=== PATIENT | male | born 1950 | race Caucasian/White ===

== ENCOUNTER 2017-01-14 12:13 | Inpatient (IN) | payer MEDICARE ==
[2017-01-14] VITALS (17 sets, daily range): BP systolic 118–146; BP diastolic 57–108; PULSE 74–173; RESP 16–20; TEMP 97.6–97.8; O2SAT 94–99
[~2017-01-14] VITALS: Ht 177.8 cm; Wt 90.7 kg
[2017-01-14] MEDS ORDERED: FAMO20TA2 PO (12:38)
[2017-01-14] MEDS ORDERED: ATOR20TA15 PO (12:38)
[2017-01-14] MEDS ORDERED: ASPI81CH CHEW (12:38)
[2017-01-14] MEDS ORDERED: METO50TA11 PO (12:38)
[2017-01-14] MEDS ORDERED: DILTIAZEM HCL 25 MG/5 ML VIAL IV ONE (12:45)
[2017-01-14] MEDS ORDERED: SODIUM CHLORIDE 0.9% FLUSH 10 ML FLUSH IVF PRN (12:45)
--- NOTE | 2017-01-14 12:59 | PD ---
HPI Chief Complaint: Cardiac Complaint Time Seen by Provider: 12:30 Travel History International Travel<30 days: No Contact w/Intl Traveler<30days: No Traveled to known affect area: No History of Present Illness HPI Patient is a 66-year-old male presenting to emergency from for evaluation of shortness of breath and fatigue. Patient states he was cutting his grass on January 09 when he suddenly became short of breath and felt very tired. He stopped when into the air conditioning assumed it would resolve however he continued on and off for the next several days. He states that last night he couldn't sleep secondary to feeling short of breath and the sense that he could not take a deep breath. Patient denies any chest pain, nausea, headache, fever, chills. He does report swelling in his legs and feet over the last few days. He reports a past medical history significant for coronary artery disease with stent placement, GERD, hyperlipidemia, hypertension. He is on metoprolol and aspirin, he did not take these medications this morning. PFSH Past Medical History Hx Anticoagulant Therapy: Yes (81mg ASA) High Cholesterol: Yes Coronary Artery Disease: Yes GERD: Yes Hypertension: Yes Past Surgical History Coronary Stent: Yes Social History Alcohol Use: No Tobacco Use: No Substance Use: No Allergies-Medications (Allergen,Severity, Reaction): Coded Allergies: No Known Allergies (Unverified , 01/14/17) Reported Meds & Prescriptions Reported Meds & Active Scripts Active Reported Metoprolol Succinate ER 24 HR (Metoprolol Succinate) 50 Mg Tab 50 Mg PO DAILY Famotidine 20 Mg Tab 20 Mg PO DAILY Atorvastatin (Atorvastatin Calcium) 20 Mg Tab 20 Mg PO HS Aspirin 81 Mg Chew 81 Mg CHEW DAILY Review of Systems Except as stated in HPI: all other systems reviewed are Neg Cardiovascular: Positive: Tachycardia, Dyspnea on exertion, Edema, No: Chest Pain or Discomfort Respiratory: Positive: Shortness of Breath, Orthopnea Gastrointestinal: No: Nausea, Vomiting, Abdominal Pain Musculoskeletal: No: Myalgias Neurologic: No: Weakness, Dizziness, Syncope, Focal Abnormalities Physical Exam Narrative GENERAL: Well-developed, well-nourished, alert male. Resting in no acute distress. SKIN: Warm and dry. HEAD: Atraumatic. Normocephalic. EYES: Pupils equal and round. No scleral icterus. No injection or drainage. ENT: No nasal bleeding or discharge. Mucous membranes pink and moist. NECK: Trachea midline. No JVD. CARDIOVASCULAR: Irregularly irregular, tachycardic RESPIRATORY: No accessory muscle use. Clear to auscultation. Breath sounds equal bilaterally. GASTROINTESTINAL: Abdomen soft, non-tender, nondistended. Hepatic and splenic margins not palpable. MUSCULOSKELETAL: Extremities without clubbing, cyanosis. No obvious deformities. Trace peripheral edema, positive pedal pulses, persistent 3 second capillary refill. NEUROLOGICAL: Awake and alert. No obvious cranial nerve deficits. Motor grossly within normal limits. Five out of 5 muscle strength in the arms and legs. Normal speech. PSYCHIATRIC: Appropriate mood and affect; insight and judgment normal. Data Data Last Documented VS Vital Signs Date Time Temp Pulse Resp B/P Pulse Ox O2 Delivery O2 Flow Rate FiO2 01/14/17 14:54 126 120/84 01/14/17 14:48 16 97 Nasal Cannula 2 01/14/17 12:25 97.6 Orders Diltiazem Inj (Cardizem Inj) (01/14/17 12:45) Electrocardiogram (01/14/17 12:38) B-Type Natriuretic Peptide (01/14/17 12:38) Ckmb (Isoenzyme) Profile (01/14/17 12:38) Complete Blood Count With Diff (01/14/17 12:38) Comprehensive Metabolic Panel (01/14/17 12:38) Magnesium (Mg) (01/14/17 12:38) Prothrombin Time / Inr (Pt) (01/14/17 12:38) Act Partial Throm Time (Ptt) (01/14/17 12:38) Troponin I (01/14/17 12:38) Chest, Single Ap (01/14/17 12:38) Ecg Monitoring (01/14/17 12:38) Bilateral Bp Monitoring (01/14/17 12:38) Iv Access Insert/Monitor (01/14/17 12:38) Oximetry (01/14/17 12:38) Oxygen Administration (01/14/17 12:38) Sodium Chloride 0.9% Flush (Ns Flush) (01/14/17 12:45) Thyroid Stimulating Hormone (01/14/17 12:38) Free Thyroxine (T4) (01/14/17 12:38) Diltiazem Inj (Cardizem Inj) (01/14/17 13:30) Potassium Chloride (Kcl) (01/14/17 14:45) Admit Order (Ed Use Only) (01/14/17 14:52) Labs Laboratory Tests Test 01/14/17 13:20 White Blood Count 7.3 TH/MM3 Red Blood Count 3.14 MIL/MM3 Hemoglobin 12.2 GM/DL Hematocrit 35.4 % Mean Corpuscular Volume 112.9 FL Mean Corpuscular Hemoglobin 38.8 PG Mean Corpuscular Hemoglobin 34.3 % Concent Red Cell Distribution Width 19.0 % Platelet Count 220 TH/MM3 Mean Platelet Volume 9.3 FL Neutrophils (%) (Auto) 68.7 % Lymphocytes (%) (Auto) 19.3 % Monocytes (%) (Auto) 10.4 % Eosinophils (%) (Auto) 0.9 % Basophils (%) (Auto) 0.7 % Neutrophils # (Auto) 5.0 TH/MM3 Lymphocytes # (Auto) 1.4 TH/MM3 Monocytes # (Auto) 0.8 TH/MM3 Eosinophils # (Auto) 0.1 TH/MM3 Basophils # (Auto) 0.0 TH/MM3 CBC Comment DIFF FINAL Differential Comment Prothrombin Time 13.0 SEC Prothromb Time International 1.2 RATIO Ratio Activated Partial 25.0 SEC Thromboplast Time Sodium Level 139 MEQ/L Potassium Level 3.3 MEQ/L Chloride Level 104 MEQ/L Carbon Dioxide Level 23.8 MEQ/L Anion Gap 11 MEQ/L Blood Urea Nitrogen 19 MG/DL Creatinine 1.23 MG/DL Estimat Glomerular Filtration 59 ML/MIN Rate Random Glucose 110 MG/DL Calcium Level 9.2 MG/DL Magnesium Level 1.5 MG/DL Total Bilirubin 1.3 MG/DL Aspartate Amino Transf 36 U/L (AST/SGOT) Alanine Aminotransferase 20 U/L (ALT/SGPT) Alkaline Phosphatase 92 U/L Total Creatine Kinase 78 U/L Troponin I 0.02 NG/ML B-Type Natriuretic Peptide 475 PG/ML Total Protein 7.3 GM/DL Albumin 3.6 GM/DL Free Thyroxine 1.32 NG/DL Thyroid Stimulating Hormone 2.050 uIU/ML [address] [place] [address] Medical Decision Making Medical Screen Exam Complete: Yes Emergency Medical Condition: Yes Interpretation(s) Last Impressions Chest X-Ray 01/14/17 1238 Signed Impressions: Service Date/Time: Cristiana, January 14, 2017 12:40 - CONCLUSION: 1. Cardiomegaly with small bilateral effusions. Sukhi Rose MD Laboratory Tests Test 01/14/17 13:20 White Blood Count 7.3 TH/MM3 Red Blood Count 3.14 MIL/MM3 Hemoglobin 12.2 GM/DL Hematocrit 35.4 % Mean Corpuscular Volume 112.9 FL Mean Corpuscular Hemoglobin 38.8 PG Mean Corpuscular Hemoglobin 34.3 % Concent Red Cell Distribution Width 19.0 % Platelet Count 220 TH/MM3 Mean Platelet Volume 9.3 FL Neutrophils (%) (Auto) 68.7 % Lymphocytes (%) (Auto) 19.3 % Monocytes (%) (Auto) 10.4 % Eosinophils (%) (Auto) 0.9 % Basophils (%) (Auto) 0.7 % Neutrophils # (Auto) 5.0 TH/MM3 Lymphocytes # (Auto) 1.4 TH/MM3 Monocytes # (Auto) 0.8 TH/MM3 Eosinophils # (Auto) 0.1 TH/MM3 Basophils # (Auto) 0.0 TH/MM3 CBC Comment DIFF FINAL Differential Comment Prothrombin Time 13.0 SEC Prothromb Time International 1.2 RATIO Ratio Activated Partial 25.0 SEC Thromboplast Time Sodium Level 139 MEQ/L Potassium Level 3.3 MEQ/L Chloride Level 104 MEQ/L Carbon Dioxide Level 23.8 MEQ/L Anion Gap 11 MEQ/L Blood Urea Nitrogen 19 MG/DL Creatinine 1.23 MG/DL Estimat Glomerular Filtration 59 ML/MIN Rate Random Glucose 110 MG/DL Calcium Level 9.2 MG/DL Magnesium Level 1.5 MG/DL Total Bilirubin 1.3 MG/DL Aspartate Amino Transf 36 U/L (AST/SGOT) Alanine Aminotransferase 20 U/L (ALT/SGPT) Alkaline Phosphatase 92 U/L Total Creatine Kinase 78 U/L Troponin I 0.02 NG/ML B-Type Natriuretic Peptide 475 PG/ML Total Protein 7.3 GM/DL Albumin 3.6 GM/DL Free Thyroxine 1.32 NG/DL Thyroid Stimulating Hormone 2.050 uIU/ML 3rd Gen Vital Signs Date Time Temp Pulse Resp B/P Pulse Ox O2 Delivery O2 Flow Rate FiO2 01/14/17 12:51 118 01/14/17 12:46 168 17 146/57 95 Nasal Cannula 2 120/69 123/100 01/14/17 12:42 96 Nasal Cannula 2 01/14/17 12:25 97.6 173 20 94 Differential Diagnosis Congestive heart failure versus cardiac arrhythmia versus left foot abnormality versus acute coronary syndrome versus other Narrative Course Patient is a 66-year-old male presenting to emergency department with shortness of breath and fatigue over the last several days, worsening last night prompting his visit to the emergency department. On arrival patient was noted to be in A. fib with RVR with heart rate in the 160's, he was given 20 mg IV Cardizem in route by EMS, on arrival initial EKG shows A. fib with RVR with a heart rate of 161. Second IV bolus ordered, labs and imaging ordered and pending. Patient placed on supplemental oxygen, telemetry monitoring, continuous pulse oximetry. Patient's resting in no acute distress. After second dose of Cardizem, patient's heart rate trended down to low 100s, it did not sustain this rate and rebound into the 130s, Cardizem drip ordered. Chest x-ray shows cardiomegaly with small bilateral effusions. BNP 475 CBC is unremarkable Chemistry with potassium at 3.3 Cardiac enzymes negative 1 set TSH and free T4 unremarkable Discussed with Dr. Allen who accepted admission, orders placed. Diagnosis Primary Impression: Atrial fibrillation with RVR Additional Impressions: Hypokalemia Acute congestive heart failure Qualified Code: I50.9 - Acute congestive heart failure, unspecified congestive heart failure type Admitting Information Admitting Physician Requests: Admit Condition: Stable Karen Pedro Jan 14, 2017 12:59
--- NOTE | 2017-01-14 13:06 | RADRPT ---
EXAM DATE/TIME: 01/14/2017 12:40 [facility] COMPARISON: No previous studies available for comparison. INDICATIONS : Short of breath. MEDICAL HISTORY : Myocardial infarction. atrial fibrillation.high cholesterol. SURGICAL HISTORY : Coronary artery stent. ENCOUNTER: Initial ACUITY: 1 day PAIN SCORE: 0/10 LOCATION: Bilateral chest FINDINGS: The heart is enlarged. There are small bilateral effusions right greater than left. The pulmonary par enchyma is clear. The visualized bony structures demonstrate degenerative changes in the right should er but are otherwise intact. CONCLUSION: 1. Cardiomegaly with small bilateral effusions. Sukhi Rose MD on January 14, 2017 at 13:04 Board Certified Radiologist. This report was verified electronically.
[2017-01-14 13:43] LABS: BASOPHIL % 0.7 % (0.0-2.0); EOSINOPHIL # 0.1 TH/MM3 (0-0.4); EOSINOPHIL % 0.9 % (0.0-4.0); HEMATOCRIT 35.4 % (39.0-51.0); HEMO FLAGS DIFF FINAL; LYMPH % 19.3 % (9.0-44.0); LYMPHOCYTE # 1.4 TH/MM3 (1.0-4.8); MEAN CELL VOLUME 112.9 FL (80.0-100.0); MEAN CORPUSCULAR HEMOGLOBIN 38.8 PG (27.0-34.0); MEAN CORPUSCULAR HGB CONC 34.3 % (32.0-36.0); MONO % 10.4 % (0.0-8.0); NEUT % 68.7 % (16.0-70.0); PLATELET COUNT 220 TH/MM3 (150-450); RED BLOOD COUNT 3.14 MIL/MM3 (4.50-5.90); WHITE BLOOD COUNT 7.3 TH/MM3 (4.0-11.0)
[2017-01-14 13:57] LABS: ALT (GPT) 20 U/L (12-78); ANION GAP 11 MEQ/L (5-15); AST (GOT) 36 U/L (15-37); BICARBONATE 23.8 MEQ/L (21.0-32.0); BLOOD UREA NITROGEN 19 MG/DL (7-18); CHLORIDE 104 MEQ/L (98-107); GLOMERULAR FILTRATION RATE 59 ML/MIN (>89); MAGNESIUM 1.5 MG/DL (1.5-2.5); POTASSIUM 3.3 MEQ/L (3.5-5.1); SODIUM (NA) 139 MEQ/L (136-145)
[2017-01-14 13:58] LABS: INTERNATIONAL NORMALIZED RATIO 1.2 RATIO
[2017-01-14 14:06] LABS: ALKALINE PHOSPHATASE 92 U/L (45-117); FREE T4 1.32 NG/DL (0.76-1.46); TOTAL BILIRUBIN ADULT 1.3 MG/DL (0.2-1.0)
[2017-01-14 14:07] LABS: CREATINE KINASE 78 U/L (39-308)
[2017-01-14] MEDS: DILTIAZEM INJ 125 MG in SODIUM CHLORIDE 0.9% INJ 100 ML IV SCH ×2 (14:35→22:45)
[2017-01-14] MEDS ORDERED: POTASSIUM CHLORIDE 20 MEQ CONTROLLED RELEASE TAB PO ONE (14:45)
[2017-01-14] MEDS ORDERED: ACETAMINOPHEN 325 MG TAB PO PRN ×2 (15:00)
[2017-01-14] MEDS ORDERED: NALOXONE HCL 0.4 MG/ML AMP IV PRN (15:00)
[2017-01-14] MEDS ORDERED: SODIUM CHLORIDE 0.9% FLUSH 10 ML FLUSH IV FLUSH PRN (15:00)
[2017-01-14] MEDS ORDERED: ONDANSETRON HCL 4 MG/2 ML VIAL IVP PRN (15:00)
[2017-01-14] MEDS ORDERED: MAGNESIUM HYDROXIDE SUSP 30 ML CUP PO PRN (15:00)
[2017-01-14] MEDS ORDERED: MAGNESIUM SULFATE 1 GM PREMIX 100 ML IV ONE (16:00)
--- NOTE | 2017-01-14 16:05 | HHI.HP ---
HPI Service [facility] Primary Care Physician No Primary Care Physician Admission Diagnosis A. fib with RVR Diagnoses: (1) Atrial fibrillation with RVR (2) Acute CHF (congestive heart failure) (3) Hypokalemia (4) IFG (impaired fasting glucose) (5) Benign hypertension Chief Complaint: Shortness of breath Travel History International Travel<30 Days: No Contact w/Intl Traveler <30 Da: No Traveled to Known Affected Are: No History of Present Illness 66-year-old male with a history of coronary artery disease with cardiac stent 1 , hypertension hyperlipidemia presented to the ED for evaluation of worsening shortness of breath and fatigue 5 days duration without any associated chest pain or heart palpitation. He reports onset of shortness of breath on 01/09/17 while cutting his grass which never improved. He also endorses orthopnea as well as bilateral lower extremity edema. EMS was call and patient was found to be in A. fib with RVR. He denies any known history of atrial fibrillation. Abnormal labs include BNP 475, which patient also denies any prior history of congestive heart failure. He denies any GI bleed, hematuria or hemoptysis. Review of Systems Except as stated in HPI: all other systems reviewed are Neg Past Family Social History Past Medical History Hypertension Hyperlipidemia Coronary artery disease GERD Cardiac stent x 1 18-20 years ago Past Surgical History No previous surgeries Allergies: Coded Allergies: No Known Allergies (Unverified , 01/14/17) Family History Family history positive for kidney disease Social History Patient denies tobacco, alcohol or illicit drug intake Physical Exam Vital Signs Vital Signs Date Time Temp Pulse Resp B/P Pulse Ox O2 Delivery O2 Flow Rate FiO2 01/14/17 15:42 97 01/14/17 15:25 121 16 142/82 99 Nasal Cannula 01/14/17 15:10 136 16 131/108 97 Nasal Cannula 2 01/14/17 14:54 126 120/84 01/14/17 14:48 133 16 118/79 97 Nasal Cannula 2 01/14/17 14:38 157 20 125/84 97 Nasal Cannula 01/14/17 14:04 110 18 120/86 97 Room Air 01/14/17 13:24 88 01/14/17 12:51 118 01/14/17 12:46 168 17 146/57 95 Nasal Cannula 2 120/69 123/100 01/14/17 12:42 96 Nasal Cannula 2 01/14/17 12:25 97.6 173 20 94 Physical Exam GENERAL: This is a well-nourished, well-developed patient, in no apparent distress. SKIN: No rashes, ecchymoses or lesions. Cool and dry. HEAD: Atraumatic. Normocephalic. No temporal or scalp tenderness. EYES: Pupils equal round and reactive. Extraocular motions intact. No scleral icterus. No injection or drainage. ENT: Nose without bleeding, purulent drainage or septal hematoma. Throat without erythema, tonsillar hypertrophy or exudate. Uvula midline. Airway patent. NECK: Trachea midline. No JVD or lymphadenopathy. Supple, nontender, no meningeal signs. CARDIOVASCULAR: Regular rate and rhythm without murmurs, gallops, or rubs. RESPIRATORY: Clear to auscultation. Breath sounds equal bilaterally. No wheezes , rales, or rhonchi. GASTROINTESTINAL: Abdomen soft, non-tender, nondistended. No hepato-splenomegaly , or palpable masses. No guarding. MUSCULOSKELETAL: Extremities without clubbing, cyanosis, +1 BLE edema. No joint tenderness, effusion, or edema noted. No calf tenderness. Negative Homans sign bilaterally. NEUROLOGICAL: Awake and alert. Cranial nerves II through XII intact. Motor and sensory grossly within normal limits. Five out of 5 muscle strength in all muscle groups. Normal speech. Laboratory Laboratory Tests Test 01/14/17 13:20 White Blood Count 7.3 Red Blood Count 3.14 Hemoglobin 12.2 Hematocrit 35.4 Mean Corpuscular Volume 112.9 Mean Corpuscular Hemoglobin 38.8 Mean Corpuscular Hemoglobin 34.3 Concent Red Cell Distribution Width 19.0 Platelet Count 220 Mean Platelet Volume 9.3 Neutrophils (%) (Auto) 68.7 Lymphocytes (%) (Auto) 19.3 Monocytes (%) (Auto) 10.4 Eosinophils (%) (Auto) 0.9 Basophils (%) (Auto) 0.7 Neutrophils # (Auto) 5.0 Lymphocytes # (Auto) 1.4 Monocytes # (Auto) 0.8 Eosinophils # (Auto) 0.1 Basophils # (Auto) 0.0 CBC Comment DIFF FINAL Differential Comment Prothrombin Time 13.0 Prothromb Time International 1.2 Ratio Activated Partial 25.0 Thromboplast Time Sodium Level 139 Potassium Level 3.3 Chloride Level 104 Carbon Dioxide Level 23.8 Anion Gap 11 Blood Urea Nitrogen 19 Creatinine 1.23 Estimat Glomerular Filtration 59 Rate Random Glucose 110 Calcium Level 9.2 Magnesium Level 1.5 Total Bilirubin 1.3 Aspartate Amino Transf 36 (AST/SGOT) Alanine Aminotransferase 20 (ALT/SGPT) Alkaline Phosphatase 92 Total Creatine Kinase 78 Troponin I 0.02 B-Type Natriuretic Peptide 475 Total Protein 7.3 Albumin 3.6 Free Thyroxine 1.32 Thyroid Stimulating Hormone 2.050 3rd Gen Result Diagram: 01/14/17 1320 01/14/17 1320 Imaging Last Impressions Chest X-Ray 01/14/17 1238 Signed Impressions: Service Date/Time: Saturday, January 14, 2017 12:40 - CONCLUSION: 1. Cardiomegaly with small bilateral effusions. Sukhi Rose MD Assessment and Plan Problem List: (1) Atrial fibrillation with RVR ICD Code: I48.91 Status: Acute (2) Acute CHF (congestive heart failure) ICD Code: I50.9 Status: Acute (3) IFG (impaired fasting glucose) ICD Code: R73.01 Status: Acute (4) Benign hypertension ICD Code: I10 Status: Acute (5) Hypokalemia ICD Code: E87.6 Status: Acute Assessment and Plan 66-year-old man with Atrial fibrillation RVR New onset Rule out ACS per protocol with serial cardiac enzyme and EKGs Start Cardizem drip and resume aspirin pending further recommendation from cardiology as patient with [id number] score of 4 as patient will need OAC Check 2-D echo. Free T4 and TSH WNL Cardiology consultation pending Acute congestive heart failure New onset an unknown type Chest x-ray noted and review by me with finding of cardiomegaly with small bilateral effusions Start IV diuresis, daily potassium supplement and check 2-D echo Strict I's and O's and daily weights. CHF education Hypomagnesemia Give magnesium 1 g IV and monitor level Hypokalemia Replace electrolytes and monitor level Hypertension Currently on Cardizem drip Hyperlipidemia Check lipid profile Resume Lipitor 20 mg at bedtime Impaired fasting glucose No known history of diabetes type 2, check hemoglobin A1c and treat accordingly Coronary artery disease Resume aspirin DVT prophylaxis: Lovenox GI prophylaxis: PPI Code Status Full code Discussed Condition With Patient, ED PA Physician Certification 2 Midnight Certification Type: Admission for Inpatient Services Order for Inpatient Services The services are ordered in accordance with Medicare regulations or non- Medicare payer requirements, as applicable. In the case of services not specified as inpatient-only, they are appropriately provided as inpatient services in accordance with the 2-midnight benchmark. Estimated LOS (days): 2 days is the estimated time the patient will need to remain in the hospital, assuming treatment plan goals are met and no additional complications. Post-Hospital Plan: Not yet determined Jeffery Allen MD Jan 14, 2017 16:05
--- NOTE | 2017-01-14 17:24 | PD.CONS ---
HPI Consult Requested By Primary Care Physician No Primary Care Physician History of Present Illness 66-year-old male with a history of CAD s/p PCI, hypertension hyperlipidemia presented to the ED for evaluation of worsening shortness of breath and fatigue 5 days associated with orthopnea and bilateral lower extremity edema. Found to be in A. fib with RVR. He denies any known history of atrial fibrillation. Cardiology consulted for further management and evaluation. Review of Systems Consitutional: DENIES: Fatigue, Fever, Chills, Weight gain, Weight loss Eyes: DENIES: Amaurosis Fugax, Change in vision HEENT: DENIES: Lightheadedness, Change in hearing Respiratory: DENIES: See HPI, Cough, Snoring, Shortness of breath, Wheezing, Sputum production Cardiovascular: COMPLAINS OF: Palpitations Gastrointestinal: DENIES: Nausea, Vomiting, Change in bowel habits, Reflux, Bloody stools, Melena Genitourinary: DENIES: Urinary incontinence, Difficulty voiding Integumentary: DENIES: Rash Neurologic: DENIES: Tingling or numbness, Memory problems, Poor Balance, Stroke symptoms Musculoskeletal: DENIES: Joint pain, Muscle pain, Limited range of motion, Back pain Psychiatric: DENIES: Anxiety, Depression, Sleep disturbances Hematologic: DENIES: Bruising tendencies, Bleeding tendencies Endocrine: DENIES: Weight gain, Weight loss, Thyroid disease Past Family Social History Allergies: Coded Allergies: No Known Allergies (Unverified , 01/14/17) Past Medical History Hypertension Hyperlipidemia Coronary artery disease GERD Cardiac stent x 1 Past Surgical History No previous surgeries Reported Medications Reported Meds & Active Scripts Active Reported Metoprolol Succinate ER 24 HR (Metoprolol Succinate) 50 Mg Tab 50 Mg PO DAILY Famotidine 20 Mg Tab 20 Mg PO DAILY Atorvastatin (Atorvastatin Calcium) 20 Mg Tab 20 Mg PO HS Aspirin 81 Mg Chew 81 Mg CHEW DAILY Active Ordered Medications Current Medications Medications (Trade) Dose Ordered Sig/Amaury Route Start Time Stop Time Status Last Admin Sodium Chloride 2 ml 2 ml UNSCH PRN IVF 01/14/17 12:45 (Cardizem Inj/NS Inj) 125 ml @ 0 mls/hr TITRATE IV 01/14/17 13:30 01/14/17 14:35 (NS Flush) 2 ml UNSCH PRN IV FLUSH 01/14/17 15:00 (NS Flush) 2 ml BID IV FLUSH 01/14/17 21:00 (Tylenol) 650 mg Q4H PRN PO 01/14/17 15:00 (Zofran Inj) 4 mg Q6H PRN IVP 01/14/17 15:00 (Tylenol) 650 mg Q6H PRN PO 01/14/17 15:00 (Narcan Inj) 0.4 mg UNSCH PRN IV 01/14/17 15:00 (Milk Of Magnesia Liq) 30 ml Q12H PRN PO 01/14/17 15:00 (Lasix Inj) 20 mg BID@09,18 IV PUSH 01/14/17 18:00 (KCl) 20 meq DAILY PO 01/15/17 09:00 (Aspirin Chew) 81 mg DAILY CHEW 01/15/17 09:00 (Lipitor) 20 mg HS PO 01/14/17 21:00 Physical Exam Vital Signs Vital Signs Date Time Temp Pulse Resp B/P Pulse Ox O2 Delivery O2 Flow Rate FiO2 01/14/17 16:31 122 01/14/17 15:42 97 01/14/17 15:25 121 16 142/82 99 Nasal Cannula 01/14/17 15:10 136 16 131/108 97 Nasal Cannula 2 01/14/17 14:54 126 120/84 01/14/17 14:48 133 16 118/79 97 Nasal Cannula 2 01/14/17 14:38 157 20 125/84 97 Nasal Cannula 01/14/17 14:04 110 18 120/86 97 Room Air 01/14/17 13:24 88 01/14/17 12:51 118 01/14/17 12:46 168 17 146/57 95 Nasal Cannula 2 120/69 123/100 01/14/17 12:42 96 Nasal Cannula 2 01/14/17 12:25 97.6 173 20 94 Physical Exam GENERAL: Well-nourished, well-developed patient. SKIN: Warm and dry. HEAD: Normocephalic. EYES: No scleral icterus. No injection or drainage. NECK: Supple, trachea midline. No JVD or lymphadenopathy. CARDIOVASCULAR: Irr Irr without murmurs, gallops, or rubs. RESPIRATORY: Breath sounds equal bilaterally. No accessory muscle use. GASTROINTESTINAL: Abdomen soft, non-tender, nondistended. EXTREMITIES: No cyanosis, or edema. NEUROLOGICAL: Awake, alert, and oriented x 3. Non-focal. Laboratory Laboratory Tests Test 01/14/17 13:20 White Blood Count 7.3 Red Blood Count 3.14 Hemoglobin 12.2 Hematocrit 35.4 Mean Corpuscular Volume 112.9 Mean Corpuscular Hemoglobin 38.8 Mean Corpuscular Hemoglobin 34.3 Concent Red Cell Distribution Width 19.0 Platelet Count 220 Mean Platelet Volume 9.3 Neutrophils (%) (Auto) 68.7 Lymphocytes (%) (Auto) 19.3 Monocytes (%) (Auto) 10.4 Eosinophils (%) (Auto) 0.9 Basophils (%) (Auto) 0.7 Neutrophils # (Auto) 5.0 Lymphocytes # (Auto) 1.4 Monocytes # (Auto) 0.8 Eosinophils # (Auto) 0.1 Basophils # (Auto) 0.0 CBC Comment DIFF FINAL Differential Comment Prothrombin Time 13.0 Prothromb Time International 1.2 Ratio Activated Partial 25.0 Thromboplast Time Sodium Level 139 Potassium Level 3.3 Chloride Level 104 Carbon Dioxide Level 23.8 Anion Gap 11 Blood Urea Nitrogen 19 Creatinine 1.23 Estimat Glomerular Filtration 59 Rate Random Glucose 110 Calcium Level 9.2 Magnesium Level 1.5 Total Bilirubin 1.3 Aspartate Amino Transf 36 (AST/SGOT) Alanine Aminotransferase 20 (ALT/SGPT) Alkaline Phosphatase 92 Total Creatine Kinase 78 Troponin I 0.02 B-Type Natriuretic Peptide 475 Total Protein 7.3 Albumin 3.6 Free Thyroxine 1.32 Thyroid Stimulating Hormone 2.050 3rd Gen Result Diagram: 01/14/17 1320 01/14/17 1320 Imaging Last Impressions Chest X-Ray 01/14/17 1238 Signed Impressions: Service Date/Time: Saturday, January 14, 2017 12:40 - CONCLUSION: 1. Cardiomegaly with small bilateral effusions. Sukhi Rose MD Assessment and Plan Problem List: (1) Atrial fibrillation with RVR Assessment and Plan: 66 y/o M with new onset atrial fibrillation. [id number] > 2. No chest pain, palpitations, syncope or hx o bleeding. Recommendations: 1. Wean Cardizem Drip as tolerated by HR and BP 2. Start Lopressor 25mg PO BID 3. Start OAC with Xarelto 4. 2 D Echo 5. MPI +/- LHC (2) Benign hypertension (3) Acute congestive heart failure Problem Qualifiers (1) Acute congestive heart failure: Qualified Code: I50.9 - Acute congestive heart failure, unspecified congestive heart failure type Shay Anand MD Jan 14, 2017 17:24
[2017-01-14] MEDS: FUROSEMIDE 20 MG/2 ML VIAL IV PUSH SCH (18:00)
--- NOTE | 2017-01-14 21:30 | EKG ---
Date Performed: 01/14/2017 Time Performed: 19:07:09 PTAGE: 66 years EKG: ATRIAL FIBRILLATION WITH ABERRANT CONDUCTION OR VENTRICULAR PREMATURE COMPLEXES OLD INFERIO R MYOCARDIAL INFARCTION ABNORMAL ECG PREVIOUS TRACING : 01/14/2017 12.36 Compared to the previous tracing rate better controlled DOCTOR: Aurora Simons Interpretating Date/Time 01/14/2017 21:28:02
[2017-01-14] MEDS: SODIUM CHLORIDE 0.9% FLUSH 10 ML FLUSH IV FLUSH SCH (22:41)
[2017-01-14] MEDS: METOPROLOL TARTRATE 25 MG TAB PO SCH (22:42)
[2017-01-14] MEDS: ATORVASTATIN 20 MG TAB PO SCH (22:42)
[2017-01-15] VITALS (9 sets, daily range): BP systolic 90–123; BP diastolic 57–91; PULSE 76–110; RESP 18–20; TEMP 97.3–98; O2SAT 96–98
[2017-01-15] MEDS ORDERED: PNEUMOCOCCAL POLYVALENT INJ 25 MCG/0.5 ML SYR IM ONE (09:00)
[2017-01-15] MEDS: SODIUM CHLORIDE 0.9% FLUSH 10 ML FLUSH IV FLUSH SCH ×2 (09:00→22:08)
[2017-01-15 09:35] LABS: AUTOMATED NEUTROPHIL # 4.3 TH/MM3 (1.8-7.7); BASOPHIL % 0.5 % (0.0-2.0); EOSINOPHIL # 0.2 TH/MM3 (0-0.4); EOSINOPHIL % 2.4 % (0.0-4.0); HEMATOCRIT 32.6 % (39.0-51.0); HEMO FLAGS DIFF FINAL; LYMPH % 18.9 % (9.0-44.0); LYMPHOCYTE # 1.3 TH/MM3 (1.0-4.8); MEAN CELL VOLUME 113.3 FL (80.0-100.0); MEAN CORPUSCULAR HGB CONC 34.4 % (32.0-36.0); NEUT % 64.2 % (16.0-70.0); PLATELET COUNT 177 TH/MM3 (150-450); RED BLOOD COUNT 2.88 MIL/MM3 (4.50-5.90); RED CELL DISTRIBUTION WIDTH 18.9 % (11.6-17.2); WHITE BLOOD COUNT 6.7 TH/MM3 (4.0-11.0)
[2017-01-15 09:54] LABS: ANION GAP 11 MEQ/L (5-15); AST (GOT) 28 U/L (15-37); BICARBONATE 25.8 MEQ/L (21.0-32.0); BLOOD UREA NITROGEN 17 MG/DL (7-18); CHLORIDE 103 MEQ/L (98-107); GLOMERULAR FILTRATION RATE 81 ML/MIN (>89); MAGNESIUM 1.4 MG/DL (1.5-2.5); POTASSIUM 3.3 MEQ/L (3.5-5.1); SODIUM (NA) 140 MEQ/L (136-145)
[2017-01-15 10:00] LABS: ALKALINE PHOSPHATASE 86 U/L (45-117); ALT (GPT) 18 U/L (12-78); HDL CHOLESTEROL 25.8 MG/DL (40.0-60.0); LDL CHOLESTEROL 52 MG/DL (0-99); TOTAL BILIRUBIN ADULT 1.2 MG/DL (0.2-1.0)
[2017-01-15] MEDS: ASPIRIN 81 MG CHEW TAB CHEW SCH (10:19)
[2017-01-15] MEDS: METOPROLOL TARTRATE 25 MG TAB PO SCH ×2 (10:24→22:07)
[2017-01-15] MEDS: RIVAROXABAN 20 MG TAB PO SCH (10:24)
[2017-01-15] MEDS: FUROSEMIDE 20 MG/2 ML VIAL IV PUSH SCH ×2 (10:24→16:41)
[2017-01-15] MEDS: POTASSIUM CHLORIDE 20 MEQ CONTROLLED RELEASE TAB PO SCH (10:24)
--- NOTE | 2017-01-15 12:23 | HHI.PR ---
Subjective Remarks Follow-up A. fib with RVR/acute CHF 01/15/17-patient seen and examined; still in A. fib with RVR however reports significant improvement of shortness of breath. No acute event overnight. BP soft Objective Vitals Vital Signs Date Time Temp Pulse Resp B/P Pulse Ox O2 Delivery O2 Flow Rate FiO2 01/15/17 09:07 97.9 88 18 119/77 98 01/15/17 04:12 97.8 79 18 90/57 97 01/15/17 04:00 76 01/15/17 03:00 Nasal Cannula 2.00 01/15/17 00:00 97.6 91 18 116/78 98 01/14/17 23:49 74 01/14/17 22:20 Nasal Cannula 2.00 01/14/17 21:09 97.8 85 16 130/93 98 01/14/17 20:38 98 Nasal Cannula 2.00 01/14/17 18:54 89 01/14/17 17:26 103 16 126/79 98 Nasal Cannula 2 01/14/17 16:31 122 01/14/17 15:42 97 01/14/17 15:25 121 16 142/82 99 Nasal Cannula 01/14/17 15:10 136 16 131/108 97 Nasal Cannula 2 01/14/17 14:54 126 120/84 01/14/17 14:48 133 16 118/79 97 Nasal Cannula 2 01/14/17 14:38 157 20 125/84 97 Nasal Cannula 01/14/17 14:04 110 18 120/86 97 Room Air 01/14/17 13:24 88 01/14/17 12:51 118 01/14/17 12:46 168 17 146/57 95 Nasal Cannula 2 120/69 123/100 01/14/17 12:42 96 Nasal Cannula 2 01/14/17 12:25 97.6 173 20 94 I/O 01/14/17 01/14/17 01/14/17 01/15/17 01/15/17 01/15/17 07:00 15:00 23:00 07:00 15:00 23:00 Intake Total 642 ml 745 ml Output Total 900 ml 1500 ml Balance -258 ml -755 ml Intake Oral 500 ml 650 ml IV Total 142 ml 95 ml Output Urine Total 900 ml 1500 ml # Bowel Movements 0 0 Result Diagram: 01/15/17 0750 01/15/17 0750 Imaging Last Impressions Chest X-Ray 01/14/17 1238 Signed Impressions: Service Date/Time: Saturday, January 14, 2017 12:40 - CONCLUSION: 1. Cardiomegaly with small bilateral effusions. Sukhi Rose MD Objective Remarks GENERAL: NAD SKIN: Warm and dry. HEAD: Normocephalic. EYES: No scleral icterus. No injection or drainage. NECK: Supple, trachea midline. No JVD or lymphadenopathy. CARDIOVASCULAR: irreg Regular rate and rhythm without murmurs, gallops, or rubs. RESPIRATORY: Breath sounds equal bilaterally. No accessory muscle use. GASTROINTESTINAL: Abdomen soft, non-tender, nondistended. MUSCULOSKELETAL: No cyanosis, or edema. BACK: Nontender without obvious deformity. No CVA tenderness. A/P Problem List: (1) Atrial fibrillation with RVR ICD Code: I48.91 Status: Acute (2) Acute CHF (congestive heart failure) ICD Code: I50.9 Status: Acute (3) Hypokalemia ICD Code: E87.6 Status: Acute (4) IFG (impaired fasting glucose) ICD Code: R73.01 Status: Acute (5) Benign hypertension ICD Code: I10 Status: Acute Assessment and Plan 66-year-old man with Atrial fibrillation RVR ACS ruled out per protocol with serial cardiac enzyme and EKGs Continue Cardizem drip as patient still in A. fib with RVR will eventually switch him to by mouth Lopressor accordingly Currently on Xarelto and appreciate input from cardiology. Consider stress test 2-D echo pending. Acute congestive heart failure New onset an unknown type Chest x-ray with finding of cardiomegaly with small bilateral effusions Continue IV diuresis, daily potassium supplement and 2-D echo pending Strict I's and O's and daily weights. CHF education Hypomagnesemia Give magnesium 1 g IV and monitor level Hypokalemia Give potassium 60 mEq 1 now Hypertension Currently on Cardizem drip Hyperlipidemia LDL 52 Continue Lipitor 20 mg at bedtime Impaired fasting glucose No known history of diabetes type 2, hemoglobin A1c pending and treat accordingly Coronary artery disease Continue aspirin DVT prophylaxis: Xarelto GI prophylaxis: PPI Jeffery Allen MD Jan 15, 2017 12:23
[2017-01-15] MEDS ORDERED: POTASSIUM CHLORIDE 20 MEQ CONTROLLED RELEASE TAB PO ONE (14:00)
--- NOTE | 2017-01-15 14:27 | PD.CARD.PN ---
Subjective Subjective Remarks still in afib rvr obn cardizem drip no cv complaints Objective Medications Current Medications Medications (Trade) Dose Ordered Sig/Amaury Route Start Time Stop Time Status Last Admin (NS Flush) 2 ml UNSCH PRN IVF 01/14/17 12:45 (NS Flush) 2 ml UNSCH PRN IV FLUSH 01/14/17 15:00 (NS Flush) 2 ml BID IV FLUSH 01/14/17 21:00 01/14/17 22:41 (Tylenol) 650 mg Q4H PRN PO 01/14/17 15:00 (Zofran Inj) 4 mg Q6H PRN IVP 01/14/17 15:00 (Tylenol) 650 mg Q6H PRN PO 01/14/17 15:00 (Narcan Inj) 0.4 mg UNSCH PRN IV 01/14/17 15:00 (Milk Of Magndeepak Liq) 30 ml Q12H PRN PO 01/14/17 15:00 (Lasix Inj) 20 mg BID@09,18 IV PUSH 01/14/17 18:00 01/15/17 10:24 (KCl) 20 meq DAILY PO 01/15/17 09:00 01/15/17 10:24 (Aspirin Chew) 81 mg DAILY CHEW 01/15/17 09:00 01/15/17 10:19 (Lipitor) 20 mg HS PO 01/14/17 21:00 01/14/17 22:42 (Lopressor) 25 mg Q12HR PO 01/14/17 22:45 01/15/17 10:24 Rivaroxaban 20 mg 20 mg DAILY PO 01/15/17 09:00 01/15/17 10:24 (Cardizem Inj/NS Inj) 125 ml @ 0 mls/hr TITRATE IV 01/15/17 15:00 Vital Signs / I&O Vital Signs Date Time Temp Pulse Resp B/P Pulse Ox O2 Delivery O2 Flow Rate FiO2 01/15/17 09:07 97.9 88 18 119/77 98 01/15/17 04:12 97.8 79 18 90/57 97 01/15/17 04:00 76 01/15/17 03:00 Nasal Cannula 2.00 01/15/17 00:00 97.6 91 18 116/78 98 01/14/17 23:49 74 01/14/17 22:20 Nasal Cannula 2.00 01/14/17 21:09 97.8 85 16 130/93 98 01/14/17 20:38 98 Nasal Cannula 2.00 01/14/17 18:54 89 01/14/17 17:26 103 16 126/79 98 Nasal Cannula 2 01/14/17 16:31 122 01/14/17 15:42 97 01/14/17 15:25 121 16 142/82 99 Nasal Cannula 01/14/17 15:10 136 16 131/108 97 Nasal Cannula 2 01/14/17 14:54 126 120/84 01/14/17 14:48 133 16 118/79 97 Nasal Cannula 2 01/14/17 14:38 157 20 125/84 97 Nasal Cannula I/O 01/14/17 01/14/17 01/14/17 01/15/17 01/15/17 01/15/17 07:00 15:00 23:00 07:00 15:00 23:00 Intake Total 642 ml 745 ml Output Total 900 ml 1500 ml Balance -258 ml -755 ml Intake Oral 500 ml 650 ml IV Total 142 ml 95 ml Output Urine Total 900 ml 1500 ml # Bowel Movements 0 0 Physical Exam GENERAL: Well-nourished, well-developed patient. SKIN: Warm and dry. HEAD: Normocephalic. EYES: No scleral icterus. No injection or drainage. NECK: Supple, trachea midline. No JVD or lymphadenopathy. CARDIOVASCULAR: Regular rate and rhythm without murmurs, gallops, or rubs. RESPIRATORY: Breath sounds equal bilaterally. No accessory muscle use. GASTROINTESTINAL: Abdomen soft, non-tender, nondistended. EXTREMITIES: No cyanosis, or edema. NEUROLOGICAL: Awake, alert, and oriented x 3. Non-focal. Laboratory Laboratory Tests Test 01/14/17 01/15/17 01/15/17 19:20 00:39 07:50 Total Creatine Kinase 65 U/L 68 U/L Troponin I 0.02 NG/ML 0.02 NG/ML White Blood Count 6.7 TH/MM3 Red Blood Count 2.88 MIL/MM3 Hemoglobin 11.2 GM/DL Hematocrit 32.6 % Mean Corpuscular Volume 113.3 FL Mean Corpuscular Hemoglobin 39.0 PG Mean Corpuscular Hemoglobin 34.4 % Concent Red Cell Distribution Width 18.9 % Platelet Count 177 TH/MM3 Mean Platelet Volume 9.1 FL Neutrophils (%) (Auto) 64.2 % Lymphocytes (%) (Auto) 18.9 % Monocytes (%) (Auto) 14.0 % Eosinophils (%) (Auto) 2.4 % Basophils (%) (Auto) 0.5 % Neutrophils # (Auto) 4.3 TH/MM3 Lymphocytes # (Auto) 1.3 TH/MM3 Monocytes # (Auto) 0.9 TH/MM3 Eosinophils # (Auto) 0.2 TH/MM3 Basophils # (Auto) 0.0 TH/MM3 CBC Comment DIFF FINAL Differential Comment Sodium Level 140 MEQ/L Potassium Level 3.3 MEQ/L Chloride Level 103 MEQ/L Carbon Dioxide Level 25.8 MEQ/L Anion Gap 11 MEQ/L Blood Urea Nitrogen 17 MG/DL Creatinine 0.93 MG/DL Estimat Glomerular Filtration 81 ML/MIN Rate Random Glucose 84 MG/DL Calcium Level 8.9 MG/DL Magnesium Level 1.4 MG/DL Total Bilirubin 1.2 MG/DL Aspartate Amino Transf 28 U/L (AST/SGOT) Alanine Aminotransferase 18 U/L (ALT/SGPT) Alkaline Phosphatase 86 U/L Total Protein 6.5 GM/DL Albumin 3.2 GM/DL Triglycerides Level 66 MG/DL Cholesterol Level 91 MG/DL LDL Cholesterol 52 MG/DL HDL Cholesterol 25.8 MG/DL Cholesterol/HDL Ratio 3.52 RATIO Imaging Last Impressions Chest X-Ray 01/14/17 1238 Signed Impressions: Service Date/Time: Saturday, January 14, 2017 12:40 - CONCLUSION: 1. Cardiomegaly with small bilateral effusions. Sukhi Rose MD Assessment and Plan Problem List: (1) Atrial fibrillation with RVR Assessment and Plan: 66-year-old man with Atrial fibrillation RVR Continue rate control with Cardizem drip and wean down as tolerated. Cont OAC 2Decho Continue IV diuresis, daily potassium supplement Strict I's and O's and daily weights. (2) Benign hypertension (3) Acute congestive heart failure Problem Qualifiers (1) Acute congestive heart failure: Qualified Code: I50.9 - Acute congestive heart failure, unspecified congestive heart failure type Moreno-Shay Goetz MD Jan 15, 2017 14:27
[2017-01-15] MEDS ORDERED: DILTIAZEM INJ 125 MG in SODIUM CHLORIDE 0.9% INJ 100 ML IV SCH (15:00)
--- NOTE | 2017-01-15 17:07 | EKG ---
Date Performed: 01/14/2017 Time Performed: 12:36:00 PTAGE: 66 years EKG: ATRIAL FIBRILLATION WITH RAPID VENTRICULAR RESPONSE WITH ABERRANT CONDUCTION OR VENTRICULAR PREMATURE COMPLEXES INFERIOR MYOCARDIAL INFARCTION ABNORMAL ECG NO PREVIOUS TRACING DOCTOR: Aurora Simons Interpretating Date/Time 01/15/2017 17:07:21
[2017-01-15 17:58] LABS: HEMOGLOBIN A1a 1.2 %; HEMOGLOBIN A1b 0.8 %; HEMOGLOBIN LA1C 1.7 %; HEMOGLOBIN P3 3.5 %
[2017-01-15] MEDS: ATORVASTATIN 20 MG TAB PO SCH (22:08)
[2017-01-16] VITALS (7 sets, daily range): BP systolic 95–127; BP diastolic 65–93; PULSE 77–110; RESP 18–20; TEMP 97.9–98.6; O2SAT 95–97
[2017-01-16] MEDS: FUROSEMIDE 20 MG/2 ML VIAL IV PUSH SCH (08:24)
[2017-01-16] MEDS: POTASSIUM CHLORIDE 20 MEQ CONTROLLED RELEASE TAB PO SCH (08:25)
[2017-01-16] MEDS: SODIUM CHLORIDE 0.9% FLUSH 10 ML FLUSH IV FLUSH SCH ×2 (08:25→23:04)
[2017-01-16] MEDS: ASPIRIN 81 MG CHEW TAB CHEW SCH (08:25)
[2017-01-16] MEDS: RIVAROXABAN 20 MG TAB PO SCH (08:26)
[2017-01-16] MEDS: METOPROLOL TARTRATE 25 MG TAB PO SCH ×2 (08:26→23:04)
--- NOTE | 2017-01-16 09:26 | HHI.PR ---
Subjective Remarks Follow-up A. fib with RVR/acute CHF 01/15/17-patient seen and examined; still in A. fib with RVR however reports significant improvement of shortness of breath. No acute event overnight. BP soft 01/16/17-patient seen and examined, currently rate control and soft BP. Patient nothing by mouth pending stress test. Denies any shortness of breath or chest pain. Objective Vitals Vital Signs Date Time Temp Pulse Resp B/P Pulse Ox O2 Delivery O2 Flow Rate FiO2 01/16/17 08:00 98.3 79 18 104/68 95 01/16/17 04:00 97.9 77 18 95/65 96 01/16/17 00:40 97.9 86 18 95/67 96 01/15/17 23:00 80 01/15/17 20:00 97.3 110 18 123/91 97 01/15/17 20:00 97 01/15/17 19:00 Nasal Cannula 2.00 01/15/17 17:38 85 01/15/17 16:00 98.0 78 20 117/76 98 01/15/17 16:00 98 Nasal Cannula 2.00 01/15/17 14:42 97.9 85 20 119/72 96 I/O 01/15/17 01/15/17 01/15/17 01/16/17 01/16/17 01/16/17 07:00 15:00 23:00 07:00 15:00 23:00 Intake Total 745 ml 600 ml 580 ml 800 ml Output Total 1500 ml 725 ml 0 ml 650 ml Balance -755 ml -125 ml 580 ml 150 ml Intake Oral 650 ml 600 ml 480 ml 800 ml IV Total 95 ml 100 ml Output Urine Total 1500 ml 725 ml 0 ml 650 ml # Bowel Movements 0 1 0 0 Result Diagram: 01/15/17 0750 01/15/17 0750 Imaging Last Impressions Chest X-Ray 01/14/17 1238 Signed Impressions: Service Date/Time: Saturday, January 14, 2017 12:40 - CONCLUSION: 1. Cardiomegaly with small bilateral effusions. Sukhi Rose MD Objective Remarks GENERAL: NAD SKIN: Warm and dry. HEAD: Normocephalic. EYES: No scleral icterus. No injection or drainage. NECK: Supple, trachea midline. No JVD or lymphadenopathy. CARDIOVASCULAR: irreg Regular rate and rhythm without murmurs, gallops, or rubs. RESPIRATORY: Breath sounds equal bilaterally. No accessory muscle use. GASTROINTESTINAL: Abdomen soft, non-tender, nondistended. MUSCULOSKELETAL: No cyanosis, or edema. BACK: Nontender without obvious deformity. No CVA tenderness. A/P Problem List: (1) Atrial fibrillation with RVR ICD Code: I48.91 Status: Acute (2) Acute CHF (congestive heart failure) ICD Code: I50.9 Status: Acute (3) Hypokalemia ICD Code: E87.6 Status: Acute (4) IFG (impaired fasting glucose) ICD Code: R73.01 Status: Acute (5) Benign hypertension ICD Code: I10 Status: Acute Assessment and Plan 66-year-old man with Atrial fibrillation RVR ACS ruled out per protocol with serial cardiac enzyme and EKGs Discontinue Cardizem drip and start by mouth Lopressor accordingly Currently on Xarelto and appreciate input from cardiology. Stress test pending this a.m. 2-D echo pending. Acute congestive heart failure New onset an unknown type Chest x-ray with finding of cardiomegaly with small bilateral effusions Continue IV diuresis, daily potassium supplement and 2-D echo pending Strict I's and O's and daily weights. CHF education Hypomagnesemia Give magnesium 1 g IV and monitor level Hypokalemia Give potassium 60 mEq 1 now Hypertension BP currently soft Will start Lopressor with holding parameters Hyperlipidemia LDL 52 Continue Lipitor 20 mg at bedtime Impaired fasting glucose No known history of diabetes type 2, hemoglobin A1c 5.5 Coronary artery disease Continue aspirin DVT prophylaxis: Xarelto GI prophylaxis: PPI Discharge Planning Discharge home when medically stable and cleared by cardiology pending Lexiscan stress test Jeffery Allen MD Jan 16, 2017 09:26
[2017-01-16] MEDS ORDERED: MAGNESIUM SULFATE 1 GM PREMIX 100 ML IV ONE (09:30)
[2017-01-16 10:05] LABS: AUTOMATED NEUTROPHIL # 4.4 TH/MM3 (1.8-7.7); BASOPHIL % 0.5 % (0.0-2.0); EOSINOPHIL # 0.1 TH/MM3 (0-0.4); HEMATOCRIT 34.5 % (39.0-51.0); HEMO FLAGS DIFF FINAL; LYMPH % 24.1 % (9.0-44.0); LYMPHOCYTE # 1.7 TH/MM3 (1.0-4.8); MEAN CORPUSCULAR HEMOGLOBIN 37.9 PG (27.0-34.0); MEAN CORPUSCULAR HGB CONC 33.2 % (32.0-36.0); MONO % 11.5 % (0.0-8.0); NEUT % 61.9 % (16.0-70.0); PLATELET COUNT 178 TH/MM3 (150-450); RED BLOOD COUNT 3.03 MIL/MM3 (4.50-5.90); RED CELL DISTRIBUTION WIDTH 18.8 % (11.6-17.2); WHITE BLOOD COUNT 7.1 TH/MM3 (4.0-11.0)
[2017-01-16 10:31] LABS: BICARBONATE 28.1 MEQ/L (21.0-32.0); POTASSIUM 3.7 MEQ/L (3.5-5.1)
[2017-01-16] MEDS ORDERED: REGADENOSON INJ 0.4 MG/5 ML SYR ONE (11:10)
[2017-01-16] MEDS ORDERED: DILTIAZEM INJ 125 MG in SODIUM CHLORIDE 0.9% INJ 100 ML IV SCH (13:15)
--- NOTE | 2017-01-16 15:09 | PD.CARD.PN ---
Subjective Subjective Remarks no cv complaints back in afib with RVR Objective Medications Current Medications Medications (Trade) Dose Ordered Sig/Amaury Route Start Time Stop Time Status Last Admin (NS Flush) 2 ml UNSCH PRN IVF 01/14/17 12:45 (NS Flush) 2 ml UNSCH PRN IV FLUSH 01/14/17 15:00 (NS Flush) 2 ml BID IV FLUSH 01/14/17 21:00 01/16/17 08:25 (Tylenol) 650 mg Q4H PRN PO 01/14/17 15:00 (Zofran Inj) 4 mg Q6H PRN IVP 01/14/17 15:00 (Tylenol) 650 mg Q6H PRN PO 01/14/17 15:00 (Narcan Inj) 0.4 mg UNSCH PRN IV 01/14/17 15:00 (Milk Of Magnesia Liq) 30 ml Q12H PRN PO 01/14/17 15:00 (KCl) 20 meq DAILY PO 01/15/17 09:00 01/16/17 08:25 (Aspirin Chew) 81 mg DAILY CHEW 01/15/17 09:00 01/16/17 08:25 (Lipitor) 20 mg HS PO 01/14/17 21:00 01/15/17 22:08 (Lopressor) 25 mg Q12HR PO 01/14/17 22:45 01/15/17 22:07 (Xarelto) 20 mg DAILY PO 01/15/17 09:00 01/15/17 10:24 Furosemide 20 mg 20 mg DAILY PO 01/17/17 09:00 (Cardizem Inj/NS Inj) 125 ml @ 0 mls/hr TITRATE IV 01/16/17 13:15 Vital Signs / I&O Vital Signs Date Time Temp Pulse Resp B/P Pulse Ox O2 Delivery O2 Flow Rate FiO2 01/16/17 12:00 98.6 108 20 127/93 97 01/16/17 09:00 77 01/16/17 08:00 98.3 79 18 104/68 95 01/16/17 08:00 97 Nasal Cannula 2.00 01/16/17 04:00 97.9 77 18 95/65 96 01/16/17 00:40 97.9 86 18 95/67 96 01/15/17 23:00 80 01/15/17 20:00 97.3 110 18 123/91 97 01/15/17 20:00 97 01/15/17 19:00 Nasal Cannula 2.00 01/15/17 17:38 85 01/15/17 16:00 98.0 78 20 117/76 98 01/15/17 16:00 98 Nasal Cannula 2.00 I/O 01/15/17 01/15/17 01/15/17 01/16/17 01/16/17 01/16/17 07:00 15:00 23:00 07:00 15:00 23:00 Intake Total 745 ml 600 ml 580 ml 800 ml 480 ml Output Total 1500 ml 725 ml 0 ml 650 ml 625 ml Balance -755 ml -125 ml 580 ml 150 ml -145 ml Intake Oral 650 ml 600 ml 480 ml 800 ml 480 ml IV Total 95 ml 100 ml Output Urine Total 1500 ml 725 ml 0 ml 650 ml 625 ml # Voids 3 # Bowel Movements 0 1 0 0 1 Physical Exam GENERAL: Well-nourished, well-developed patient. SKIN: Warm and dry. HEAD: Normocephalic. EYES: No scleral icterus. No injection or drainage. NECK: Supple, trachea midline. No JVD or lymphadenopathy. CARDIOVASCULAR: Regular rate and rhythm without murmurs, gallops, or rubs. RESPIRATORY: Breath sounds equal bilaterally. No accessory muscle use. GASTROINTESTINAL: Abdomen soft, non-tender, nondistended. EXTREMITIES: No cyanosis, or edema. NEUROLOGICAL: Awake, alert, and oriented x 3. Non-focal. Laboratory Laboratory Tests Test 01/16/17 08:37 White Blood Count 7.1 TH/MM3 Red Blood Count 3.03 MIL/MM3 Hemoglobin 11.5 GM/DL Hematocrit 34.5 % Mean Corpuscular Volume 114.0 FL Mean Corpuscular Hemoglobin 37.9 PG Mean Corpuscular Hemoglobin 33.2 % Concent Red Cell Distribution Width 18.8 % Platelet Count 178 TH/MM3 Mean Platelet Volume 9.2 FL Neutrophils (%) (Auto) 61.9 % Lymphocytes (%) (Auto) 24.1 % Monocytes (%) (Auto) 11.5 % Eosinophils (%) (Auto) 2.0 % Basophils (%) (Auto) 0.5 % Neutrophils # (Auto) 4.4 TH/MM3 Lymphocytes # (Auto) 1.7 TH/MM3 Monocytes # (Auto) 0.8 TH/MM3 Eosinophils # (Auto) 0.1 TH/MM3 Basophils # (Auto) 0.0 TH/MM3 CBC Comment DIFF FINAL Differential Comment Sodium Level 141 MEQ/L Potassium Level 3.7 MEQ/L Chloride Level 105 MEQ/L Carbon Dioxide Level 28.1 MEQ/L Anion Gap 8 MEQ/L Blood Urea Nitrogen 15 MG/DL Creatinine 0.87 MG/DL Estimat Glomerular Filtration 87 ML/MIN Rate Random Glucose 86 MG/DL Calcium Level 8.6 MG/DL Imaging Last Impressions Chest X-Ray 01/14/17 1238 Signed Impressions: Service Date/Time: Saturday, January 14, 2017 12:40 - CONCLUSION: 1. Cardiomegaly with small bilateral effusions. Sukhi Rose MD Assessment and Plan Problem List: (1) Atrial fibrillation with RVR Assessment and Plan: Cont Cardizem Drip Cont OAC Start Amio drip [facility] today (2) Benign hypertension (3) Acute congestive heart failure Problem Qualifiers (1) Acute congestive heart failure: Qualified Code: I50.9 - Acute congestive heart failure, unspecified congestive heart failure type Shay Anand MD Jan 16, 2017 15:09
[2017-01-16] MEDS ORDERED: AMIODARONE IV SCH ×2 (15:15)
[2017-01-16] MEDS ORDERED: WATE IV SCH ×2 (15:15)
[2017-01-16] MEDS ORDERED: DEXTROSE 5% IV SCH ×2 (15:15)
[2017-01-16] MEDS ORDERED: AMIODARONE INJ 150 MG in DEXTROSE 5% IN WATER 100ML INJ 97 ML IV ONE ×2 (15:15)
--- NOTE | 2017-01-16 18:03 | ECHRPT ---
Indication: CHEST PAIN CONCLUSIONS Mildly dilated left ventricle. Wall thickness is measured at the upper limits of normal. The left ventricular systolic function is severely reduced with an estimated ejection fraction in th e range of 25-30%. There is global left ventricular dysfunction. The left atrial size is moderately dilated. The right atrial size is [id number] dilated. Mild thickening of the mitral valve leaflets. Moderate mitral valve regurgitation. Mitral annular calcification is present. Moderate thickening of the tricuspid valve leaflets. There is mild to moderate tricuspid valve regurgitation. Normal estimated pulmonary pressures. BP: 139 / 71 HR: 98 Rhythm: Atrial fibrillation MEASUREMENTS (Male / Female) Normal Values Technical Quality:Fair 2D ECHO LV Diastolic Diameter PLAX 5.4 cm 4.2 - 5.9 / 3.9 - 5.3 cm LV Systolic Diameter PLAX 4.7 cm IVS Diastolic Thickness 1.0 cm 0.6 - 1.0 / 0.6 - 0.9 cm LVPW Diastolic Thickness 1.0 cm 0.6 - 1.0 / 0.6 - 0.9 cm LV Relative Wall Thickness 0.4 LVOT Diameter 2.3 cm Aortic Root Diameter 3.3 cm LA Systolic Diameter LX 5.0 cm 3.0 - 4.0 / 2.7 - 3.8 cm M-MODE AV Cusp Separation MM 2.2 cm DOPPLER AV Peak Velocity 111.0 cm/s AV Peak Gradient 4.9 mmHg AV Mean Gradient 3.0 mmHg AV Velocity Time Integral 16.6 cm LVOT Peak Velocity 75.2 cm/s LVOT Peak Gradient 2.3 mmHg LVOT Velocity Time Integral 10.6 cm LVOT Cardiac Index 2023.4 cm/minm AV Area Cont Eq vti 2.6 cm AV Area Cont Eq pk 2.8 cm Mitral E Point Velocity 79.7 cm/s LV E' Lateral Velocity 4.2 cm/s Mitral E to LV E' Lateral Ratio 18.9 LV E' Septal Velocity 3.9 cm/s Mitral E to LV E' Septal Ratio 20.6 TR Peak Velocity 246.0 cm/s TR Peak Gradient 24.2 mmHg PV Peak Velocity 56.2 cm/s PV Peak Gradient 1.3 mmHg FINDINGS LEFT VENTRICLE Mildly dilated left ventricle. Wall thickness is measured at the upper limits of normal. The left ventricular systolic function is severely reduced with an estimated ejection fraction in th e range of 25-30%. There is global left ventricular dysfunction. RIGHT VENTRICLE Normal right ventricular size and systolic function. LEFT ATRIUM The left atrial size is moderately dilated. RIGHT ATRIUM The right atrial size is [id number] dilated. ATRIAL SEPTUM Normal atrial septal thickness without atrial level shunting by limited color doppler interrogation. AORTA The aortic root and proximal ascending aorta are normal in size on limited imaging. MITRAL VALVE Mild thickening of the mitral valve leaflets. Moderate mitral valve regurgitation. Mitral annular calcification is present. AORTIC VALVE Trileaflet aortic valve. No aortic valve stenosis or regurgitation. TRICUSPID VALVE Moderate thickening of the tricuspid valve leaflets. There is mild to moderate tricuspid valve regurgitation. Normal estimated pulmonary pressures. PULMONARY VALVE The pulmonary valve is not well visualized. VESSELS The inferior vena cava is normal in size. PERICARDIUM No pericardial effusion. Wally Hameed MD, FACC (Electronically Signed) Final Date:16 January 2017 18:01
[2017-01-16] MEDS: ATORVASTATIN 20 MG TAB PO SCH (23:04)
[2017-01-17] VITALS (14 sets, daily range): BP systolic 102–130; BP diastolic 62–93; PULSE 60–133; RESP 16–22; TEMP 96.5–98.3; O2SAT 93–98
[2017-01-17] MEDS: SODIUM CHLORIDE 0.9% FLUSH 10 ML FLUSH IV FLUSH SCH ×2 (09:00→22:03)
--- NOTE | 2017-01-17 09:28 | HHI.PR ---
Subjective Remarks Follow-up for Bob hoffman with RVR. He states the shortness breath had initially improved until this morning when it got worse. He reports his breathing is tight, but denies any chest pain or palpitations. He was not able to have stress test done yesterday secondary to rapid heart rate. Discussed with RN, he has been on amiodarone drip but has not been getting Cardizem drip, will now start. Lower extremity edema has improved since admission. BP is less soft today. Objective Vitals Vital Signs Date Time Temp Pulse Resp B/P Pulse Ox O2 Delivery O2 Flow Rate FiO2 01/17/17 08:00 98.2 107 18 124/93 98 01/17/17 00:00 98.0 73 20 102/62 96 01/16/17 20:00 97.9 104 20 113/85 96 01/16/17 20:00 110 01/16/17 19:00 Nasal Cannula 2.00 01/16/17 16:00 98.0 101 20 119/70 97 01/16/17 12:00 98.6 108 20 127/93 97 I/O 01/16/17 01/16/17 01/16/17 01/17/17 01/17/17 01/17/17 07:00 15:00 23:00 07:00 15:00 23:00 Intake Total 800 ml 480 ml 320 ml 240 ml Output Total 650 ml 625 ml 400 ml 300 ml Balance 150 ml -145 ml -80 ml -60 ml Intake Oral 800 ml 480 ml 320 ml 240 ml Output Urine Total 650 ml 625 ml 400 ml 300 ml # Voids 3 # Bowel Movements 0 1 Result Diagram: 01/16/17 0837 01/16/17 0837 Imaging Last Impressions Chest X-Ray 01/14/17 1238 Signed Impressions: Service Date/Time: Saturday, January 14, 2017 12:40 - CONCLUSION: 1. Cardiomegaly with small bilateral effusions. Sukhi Rose MD Objective Remarks GENERAL: Well-developed well-nourished. In no acute distress. SKIN: Warm and dry. No lesions noted. HEENT: Normocephalic. Pupils equal and round. Mucous membranes pink and moist. CARDIOVASCULAR: Rapid irregular rate and rhythm. No murmur appreciated. RESPIRATORY: No accessory muscle use. Clear to auscultation. Breath sounds equal bilaterally. GASTROINTESTINAL: Abdomen soft, non-tender, nondistended. Bowel sounds x4. MUSCULOSKELETAL: No obvious deformities. No clubbing or cyanosis. No edema. NEUROLOGICAL: Awake and alert. No focal neurological deficits. Moves upper and lower extremities spontaneously. Normal speech. PSYCHIATRIC: Appropriate mood and affect; insight and judgment normal. A/P Problem List: (1) Atrial fibrillation with RVR ICD Code: I48.91 Status: Acute (2) Acute CHF (congestive heart failure) ICD Code: I50.9 Status: Acute (3) Hypokalemia ICD Code: E87.6 Status: Acute (4) IFG (impaired fasting glucose) ICD Code: R73.01 Status: Acute (5) Benign hypertension ICD Code: I10 Status: Acute Assessment and Plan 66-year-old man with Atrial fibrillation RVR ACS ruled out per protocol with serial cardiac enzyme and EKGs Cardiology consulted, appreciate input On oral metoprolol, amiodarone GTT. Ordered Cardizem GTT, discussed with RN , will start. Currently on Xarelto Stress test when heart rate is better controlled Acute systolic congestive heart failure: Appears to be new onset Review: Echocardiogram shows severe reduction in left ventricular systolic function, EF 2530 %; global left ventricular dysfunction; moderate left atrial dilation; moderate MVR. Chest x-ray with finding of cardiomegaly with small bilateral effusions. Cardiology on board Continue Lasix and replace electrolytes as needed Strict I's and O's and daily weights. CHF education. Hypomagnesemia: Remains low after initial replacement Give additional IV magnesium Hypokalemia: Improved after oral replacement Follow-up potassium level today Hypertension BP was soft, improving Continue metoprolol and diltiazem as BP allows Hyperlipidemia LDL 52 Continue Lipitor 20 mg at bedtime Coronary artery disease Continue aspirin DVT prophylaxis: Xarelto GI prophylaxis: PPI Miguel Neff Jan 17, 2017 09:28
[2017-01-17] MEDS: ASPIRIN 81 MG CHEW TAB CHEW SCH (09:44)
[2017-01-17] MEDS: METOPROLOL TARTRATE 25 MG TAB PO SCH ×2 (09:45→22:02)
[2017-01-17] MEDS: POTASSIUM CHLORIDE 20 MEQ CONTROLLED RELEASE TAB PO SCH (09:45)
[2017-01-17] MEDS: FUROSEMIDE 20 MG TAB PO SCH (09:45)
[2017-01-17] MEDS: RIVAROXABAN 20 MG TAB PO SCH (09:45)
[2017-01-17] MEDS: MAGNESIUM SULFATE 1 GM PREMIX 100 ML IV SCH (09:46)
--- NOTE | 2017-01-17 12:09 | RADRPT ---
EXAM DATE/TIME: 01/16/2017 10:36 [facility] COMPARISON: No previous studies available for comparison. INDICATIONS : Shortness of breath with chest pressure for five days. Coronary atheroscelrosis. Atrial fibrillat ion. DOSE: 8.1 mCi Tc99m Myoview MEDICAL HISTORY : Gastroesophageal reflux disease. Cerebrovascular disease. Hypertension. SURGICAL HISTORY : Coronary artery stent. ENCOUNTER: Initial ACUITY: 4 - 6 days PAIN SCALE: 2/10 LOCATION: Midsternal chest TECHNIQUE: Resting injection SPECT was performed. Examination was performed on a SPECT/CT scanner. Attenuation corrected and non-attenuation correction images were reviewed. FINDINGS: Resting perfusion demonstrates maximum perfusion to anterolateral and septal wall. There is reduction in perfusion to posterior basal wall and inferior wall. CONCLUSION: Reduction in resting perfusion to RCA territory. RISK CATEGORY: Low (<1% Annual Mortality Rate) Tiff Darby MD on January 17, 2017 at 12:05 Board Certified Radiologist. This report was verified electronically.
[2017-01-17] MEDS ORDERED: HEPARIN-NS/PF INJ 500 ML ONE ×2 (14:03→16:38)
[2017-01-17] MEDS ORDERED: HEPARIN SODIUM - IV 10,000 UNITS/10 ML VIAL ONE ×2 (14:03→16:54)
[2017-01-17] MEDS ORDERED: VERAPAMIL HCL 5 MG/2 ML VIAL ONE ×2 (14:04→16:55)
[2017-01-17] MEDS ORDERED: MIDAZOLAM HCL 2 MG/2 ML VIAL ONE ×4 (14:04→17:47)
[2017-01-17] MEDS ORDERED: IOHEXOL 350 MG/ML 50 ML BTL (for Cath Lab) OTHER ONE (14:17)
[2017-01-17] MEDS ORDERED: IOHEXOL 350 MG/ML 100 ML BTL (for Cath Lab) OTHER ONE (17:01)
[2017-01-17] MEDS ORDERED: CLOPIDOGREL 300 MG TAB ONE (17:24)
[2017-01-17] MEDS ORDERED: MIDAZOLAM HCL 5 MG/5 ML VIAL ONE (17:39)
--- NOTE | 2017-01-17 17:58 | CATHPROC ---
[facility] HIS Report Study Information Study Number Admission Scheduled Start Study Start [id number] Jan 14 2017 2:54PM 01/17/2017 Jan 17 2017 4:29PM [place] [facility] Catheter[facility] Admit Source Facility Department Emergency department [facility] - Software Engineer Mobile Physician and Clinical Staff Initial Shay Vargas Glass Forming Engineer Josue Hernández,MICHAEL Glass Forming Engineer Kayli Everett,BSRN Glass Forming Engineer Ellen Blanco RN Recorder Juni Morales,RT(R) Scrub Austen Leslie RCIS(BS) Procedures Performed Procedure Location (Site) Vessel Name Drug Eluting Inflatio RCA Prox Right Coronary PTCA RCA Prox Right Coronary Wire insertion Radial (left) Radial Art. Equipment Time Mobile Developer Description Size Mfg Part Number Used/Scraped COPILOT VALVE, BLEEDBACK [id number] 16:52 [employer] Used CONTROL *[id number] 17:05 Fundation MEDICAL WIRE, NITONOL 80CM 80CM Used *[id number] TRANSDUCER, TRUWAVE [id number] 16:36 ZEE BLANCO * Used W/STOCKCOCK *[id number] BALLOON, 3.5 15MM [place] [id number] 17:19 BOSTON SCIENTIFIC 3.5 15MM Used QUANTUM APEX MR *[id number] 17:15 BOSTON SCIENTIFIC STENT, SYNERGY 3.5 X 32MM Used *[id number] 17:21 BOSTON SCIENTIFIC STENT, SYNERGY 4.0 X 12MM Used *[id number] 17:07 BOSTON SCIENTIFIC WIRE, SAMURAI 190CM 190CM Used *[id number] *[id number] *[id number] 16:36 MEDLINE INDUSTRIES PACK, CCL CUSTOM * Used *[id number] 16:36 Familio SUPPORT, ARTERIAL ADULT 51861 Used [id number] 17:10 MEDTRONIC BALLOON, 3.0 X 20MM EUPHORA 20MM Used *[id number] 16:56 Inhabi 30 KENYATTA INDEFLATOR Used *[id number] BAND, RADIAL COMPRESSION TR [id number] 17:33 Zalando MEDICAL 29CM Used LARGE 29 *[id number] 16:52 Inhabi PACK, ANGIOPLASTY * [id number] Used [id number] 16:36 Inhabi WIRE, 3MMJ .035 180CM 180CM Used *[id number] 16:36 NAMIC MANIFOLD, 4 PORT * Used *[id number] 16:36 NYCOMED OMNIPAQUE, 350 MG, 150ML 150ML [id number] Used [id number] 16:36 STURTEVANT MEDICAL BLANKET,WARM AIR CCL * Used *[id number] SHEATH, FR6 TRANSRADIAL 16:36 Kinetek Sports FR 6 [id number] Used SLENDER 10CM Equipment Model, Serial, Lot Number and Expiration Data Description Model Number Serial Number Lot Number Expiration Date PACK, ANGIOPLASTY [id number] 08-06-2019 STENT, SYNERGY [id number] 07-15-2017 WIRE, JELLYURAI 190CM [id number] 07-22-2019 History: Allergies Allergy Reaction No Known Allergies History: Risk Factors Family History of Hypertension Dyslipidemia Previous [place] Previous Heart Failure Premature CAD Yes Yes No No No Prior Valve Prior PCI Prior PCIDate Prior CABG Surgery No Yes 07/07/1998 No Cerebrovascular Peripheral Artery Chronic Lung On Dialysis Diabetes Disease Disease Disease No No No No No History: Other Current Smoker Method Quit Packs a Day Years Used Pack Years No Cigarettes 25 Years Ago 1 15 15 Labs Hgb (g/dl) Hct (%) WBC (l/cumm) Platelets (thousands) 11.60-17.00 35.00-51.00 4.00-11.00 150.00-450.00 11.5 34.5 7.1 178 Glucose (mg/dl) BUN (mg/dl) Creatinine (mg/dl) BUN:Creatinine (1:x) 74.00-106.00 7.00-18.00 0.50-1.30 10.00-20.00 86 15 0.8 18.8 Na (meq/l) K (meq/l) 136.00-145.00 3.50-5.10 141 3.7 Troponin I (ng/ml) CPK-MB (ng/ML) 0.02-0.05 0.50-3.60 0.02 Not Drawn Medication Medication Total Dose (Bolus/Oral) Medication Total Dosage/Unit FENTANYL 25 mcg HEPARIN 3000 units PLAVIX 600 mg RADIAL COCKTAIL 5 mL (Bolus) VERSED 2 mg Medications (Bolus/Oral) Medication Time Given Dosage/Unit Administered By Reason VERSED 01/17/2017 5:03:34 PM 2 mg Ellen Blanco 2 mg VERSED given in lab by Ellen Blanco, MICHAEL in Left Antecubital via Peripheral IV. Ordered by C Shay Light. FENTANYL 01/17/2017 5:04:10 PM 25 mcg Ellen Blanco 25 mcg FENTANYL given in lab by Ellen Blanco, MICHAEL in Left Antecubital via Peripheral IV. Ordered by Shay Anand. RADIAL COCKTAIL 01/17/2017 5:05:52 PM 5 mL (Bolus) Shay Anand Patient arrived on 5 mL (Bolus) RADIAL COCKTAIL given by Shay Anand via Radial. Using [Solutio n Name]. Ordered by Shay Anand. 2.5mcg nitro, 2mg ntg, 2500 units Heparin HEPARIN 01/17/2017 5:08:23 PM 3000 units Shay Anand Patient arrived on 3000 units HEPARIN given by Shay Anand in Left Antecubital via Peripheral I V. Ordered by Shay Anand. PLAVIX 01/17/2017 5:30:50 PM 600 mg Ellen Blanco 600 mg PLAVIX given in lab by Ellen Blanco, MICHAEL in Left Antecubital via Oral. Ordered by Shay Mackey. Medication (Drip) Medication Time Given Dosage/Unit Concentration/Unit Diluent (ml) Solution Amiodarone Drip 01/17/2017 4:34:47 PM 30.6 mL/hr 450 mL 250 D5W Patient arrived on 30.6 mL/hr Amiodarone Drip given by Shay Anand in Left Antecubital via Janey pheral IV. Pump/Drip Flow = 17 ml/hr using D5W with a concentration of 450 mL in 250 ml. Ordered by Shay Anand. CARDIZEM 01/17/2017 4:33:56 PM 15 mg Patient arrived on 15 mg CARDIZEM given by Shay Anand in Left Antecubital via Peripheral IV. O rdered by Shay Anand. drip at 15ml hr Initial Case Assessment Cardiovascular HR Rhythm NIBP Chest Pain 90 afib 119/478 0 Edema Present Skin color Skin None Normal Warm Dry Circulatory - Right Pulses Dorsalis Pedis Femoral Radial 2 2 2 Scale (0,1,2,3,4,d) Scale (0,1,2,3,4,d) Neurological State Oriented to time-place- Alert Moves all extremities person Respiration - General Respiration Rate SpO2 (%) O2 (lpm) (B/min) 18 94 2 Final Case Assessment Cardiovascular HR Rhythm NIBP Chest Pain 90 afib 123/85 0 Edema Present Skin color Skin None Normal Warm Dry Circulatory - Right Pulses Dorsalis Pedis Femoral Radial 2 2 2 Scale (0,1,2,3,4,d) Scale (0,1,2,3,4,d) Neurological State Oriented to time-place- Alert Moves all extremities person Respiration - General Respiration Rate SpO2 (%) O2 (lpm) (B/min) 18 100 0 Chronological Log Time Study Chronological Log 16:30:19 Patient arrived via Bed. With 6 slovak slender sheath in left radial artery connected to A- line. 16:30:24 Patient Name, D.O.B, / Armband Verified By R.N. 16:30:27 Consent signed by the physician and the patient and verified by the Software Engineer Mobile staff. 16:30:28 Pre-op and post- op instructions given; patient acknowledges understanding of instructions. Verbal Stimulation=~VERBAL~ Physical Stimulation=~PHYSICAL~ Airway=~AIRWAY~ Respiration=~RESPIR ATION~ 16:32:22 TOTAL=~TOTAL~. (0=absent, 1=limited, 2=present) 16:32:42 Verbal Stimulation=2 Physical Stimulation=2 Airway=2 Respiration=2 TOTAL=8. (0=absent, 1=li mited, 2=present) 16:32:54 Patient has been NPO for More than 6Hrs. 16:33:10 Skin Breakdown-none present per patient. 16:33:40 A # 20 IV was noted in the Antecubital (left). Grade = 0 Patient arrived on 15 mg CARDIZEM given by Shay Anand in Left Antecubital via Peripheral IV. Ordered by Sin 16:33:56 Sofy Shay. drip at 15ml hr Patient arrived on 30.6 mL/hr Amiodarone Drip given by Shay Anand in Left Antecubital vi a Peripheral IV. 16:34:47 Pump/Drip Flow = 17 ml/hr using D5W with a concentration of 450 mL in 250 ml. Ordered by Shay Guerra. 16:35:24 History and physical on the chart or being dictated. Vitals capture started with the following parameters, Patient=Adult, Interval=5 min, Initial Pr mfwbra=392 mmHg, 16:35:26 Deflation Rate=5 mmHg 16:36:02 ZHLG=417/78 mmhg, SpO2=95.0 %, Ferreira=2 16:39:40 Reference ECG taken Assessment: Initial Case, HR=90 BPM, Rhythm=afib, CGQS=766/478 mmhg, Chest Pain=0, Edema=None, Color=Normal, Skin = Warm, Dry 16:40:53 Right Pulses: Miguel Angel Ped=2, Femoral=2, Radial=2 Neurological: State=Alert, Ox3, ELLIOTT Respiration: Resp=18 B/min, SpO2=94 %, O2=2 lpm 16:40:59 HR=80 bpm, QNJI=938/77 mmhg, SpO2=94.0 %, Resp=26 B/min, Ferreira=2 16:45:54 HR=82 bpm, FXDP=499/94 mmhg, Resp=25 B/min, Ferreira=2 16:50:59 HR=82 bpm, JUBF=105/83 mmhg, Resp=25 B/min, Ferreira=2 16:51:40 MD paged 16:55:58 HR=78 bpm, AKIQ=054/83 mmhg, SpO2=92.0 %, Resp=24 B/min, Ferreira=2 17:00:45 MD arrived. 17:00:59 HR=96 bpm, HIBC=920/81 mmhg, Resp=26 B/min, Ferreira=2 Time Out. Correct patient, correct procedure,correct physician, ,power injector not loaded with contrast with surgical 17:03:03 team present. Time Out Concurred by MD, individual staff and ABORIGINAL EDUCATION WORKER COORDINATOR in procedure. Not loaded at t his time. 2 mg VERSED given in lab by Ellen Blanco, RN in Left Antecubital via Peripheral IV. Ordere d by Kika, 17:03:34 Shay. 25 mcg FENTANYL given in lab by Ellen Blanco, MICHAEL in Left Antecubital via Peripheral IV. Or dered by Kika, 17:04:10 Shay. 17:04:37 Case Start 17:04:39 Verbal Stimulation=2 Physical Stimulation=2 Airway=2 Respiration=2 TOTAL=8. (0=absent, 1=li mited, 2=present) 17:05:02 A WIRE, NITONOL 80CM 80CM was inserted via Radial (left). A SHEATH, FR6 TRANSRADIAL SLENDER 10CM FR 6 was advanced into the Fem Art (right) using the ~TE CHNIQUE~ 17:05:17 technique. Sterile sheath exchanged Patient arrived on 5 mL (Bolus) RADIAL COCKTAIL given by Shay Anand via Radial. Using [S olution Name]. 17:05:52 Ordered by Shay Anand. 2.5mcg nitro, 2mg ntg, 2500 units Heparin 17:05:58 HR=84 bpm, CBDV=949/80 mmhg, SpO2=89.0 %, Resp=24 B/min, Ferreira=2 A JR 4.0 GUIDE CATHETER FR 6 was advanced over a wire. OMNIPAQUE, 350 MG, 150ML 150ML was used for 17:06:29 injections. Patient arrived on 3000 units HEPARIN given by Shay Anand in Left Antecubital via Periph eral IV. Ordered by 17:08:23 Shay Anand. 17:09:42 A WIRE, SAMURAI 190CM 190CM was inserted via Radial (left). 17:11:03 UW=128 bpm, POVJ=116/64 mmhg, SpO2=90.0 %, Resp=25 B/min, Ferreira=2 17:11:11 Interventional wire has crossed the lesion 17:11:25 A BALLOON, 3.0 X 20MM EUPHORA 20MM was inserted over WIRE, SAMURAI 190CM 190CM via the RCA Prox. A BALLOON, 3.0 X 20MM EUPHORA 20MM over a WIRE, SAMURAI 190CM 190CM in the RCA Prox was inflate d using a 17:11:35 30 KENYATTA INDEFLATOR at 10 kenyatta for 20 sec. A BALLOON, 3.0 X 20MM EUPHORA 20MM over a WIRE, SAMURAI 190CM 190CM in the RCA Prox was inflate d using a 17:11:55 30 KENYATTA INDEFLATOR at 10 kenyatta for 10 sec. 17:12:15 Balloon Removed. A STENT, SYNERGY 3.5 X 32MM was deployed using a 30 KENYATTA INDEFLATOR at 15 atmospheres for 20 sec onds in the 17:13:56 RCA Prox. A STENT, SYNERGY 3.5 X 32MM was advanced through a JR 4.0 GUIDE CATHETER FR 6 over a WIRE, SAMU DOMINGUEZ 190CM 17:13:57 190CM. 17:16:02 HR=96 bpm, IMIR=620/80 mmhg, SpO2=90.0 %, Resp=22 B/min, Ferreira=2 17:18:00 Delivery device removed A BALLOON, 3.5 15MM NC QUANTUM APEX MR 3.5 15MM was inserted over WIRE, SAMURAI 190CM 190CM via the RCA 17:18:09 Prox. A BALLOON, 3.5 15MM NC QUANTUM APEX MR 3.5 15MM over a WIRE, SAMURAI 190CM 190CM in the RCA Pro x was 17:19:14 inflated using a 30 KENYATTA INDEFLATOR at 18 kenyatta for 20 sec. A BALLOON, 3.5 15MM NC QUANTUM APEX MR 3.5 15MM over a WIRE, SAMURAI 190CM 190CM in the RCA Pro x was 17:19:29 inflated using a 30 KENYATTA INDEFLATOR at 20 kenyatta for 10 sec. 17:19:41 Balloon Removed. A STENT, SYNERGY 4.0 X 12MM was advanced through a JR 4.0 GUIDE CATHETER FR 6 over a WIRE, SAMU DOMINGUEZ 190CM 17:20:01 190CM. A STENT, SYNERGY 4.0 X 12MM was deployed using a 30 KENYATTA INDEFLATOR at 12 atmospheres for 15 sec onds in the 17:20:29 RCA Prox. 17:21:05 HR=74 bpm, JZEH=784/56 mmhg, SpO2=89.0 %, Resp=22 B/min, Ferreira=2 17:22:20 Re-inflated the stent balloon in the RCA Prox to 12 KENYATTA for 10 seconds. 17:23:42 Delivery device removed Assessment: Final Case, HR=90 BPM, Rhythm=afib, ULWX=758/85 mmhg, Chest Pain=0, Edema=None, Col or=Normal, Skin = Warm, Dry 17:25:14 Right Pulses: Miguel Angel Ped=2, Femoral=2, Radial=2 Neurological: State=Alert, Ox3, ELLIOTT Respiration: Resp=18 B/min, ZcH7=736 %, O2=0 lpm 17:26:02 PX=531 bpm, POCZ=760/85 mmhg, SpO2=89.0 %, Resp=30 B/min, Ferreira=2 17:30:50 600 mg PLAVIX given in lab by Ellen Blanco, RN in Left Antecubital via Oral. Ordered b Shay Brown. 17:31:01 HR=74 bpm, FMJH=902/102 mmhg, Resp=23 B/min, Ferreira=2 17:32:01 Catheter(s) removed without difficulty Radial Compression Device Used. 15 mLs of air placed in BAND, RADIAL COMPRESSION TR LARGE 29 29 CM. Affected 17:32:11 hand 99 % O2 saturation. 17:33:02 Case End 17:33:05 No case complications noted. 17:33:07 Cine recording checked. 17:33:09 Bedside Report will be given. 17:33:20 Implantable Device card placed in patient's chart. 17:33:22 Contrast Scanned Vitals capture started with the following parameters, Patient=Adult, Interval=5 min, Initial Pr aromir=054 mmHg, 17:37:21 Deflation Rate=5 mmHg 17:37:35 Patient to be monitored on cath table for GHADA/Cardioversion by Dr. Moreno in cathlab. 17:37:51 HR=97 bpm, AFHF=320/92 mmhg, SpO2=91.0 %, Resp=39 B/min, Ferreira=2 17:42:50 HR=61 bpm, QNZG=842/84 mmhg, SpO2=93.0 %, Resp=27 B/min, Ferreira=2 17:44:45 GHADA in progress. 17:46:02 See nurses sheet for meds given. 17:47:49 EG=059 bpm, ALFL=059/91 mmhg, SpO2=99.0 %, Resp=17 B/min, Ferreira=2 17:52:58 HR=94 bpm, XKJI=097/69 mmhg, SpO2=96.0 %, Resp=13 B/min, Ferreira=2 17:53:06 Reference ECG taken 17:54:09 Cardioversion in progress. 17:54:58 Patient moved to stretcher 17:57:19 Vitals capture stopped. End Study - Contrast Media Used In Study Contrast Total Opened (mL) Total Used (mL) Total Wasted (mL) Omnipaque 30 30 0 End Study - Maximum Contrast Load Max Contrast Load (mL) 566.8 End Study - Radiation Exposure Fluoro Time (minutes) 6.6 End Study - Patient Disposition Complications Transferred To No Telemetry Bed
--- NOTE | 2017-01-17 19:32 | CATHPROC ---
[facility] HIS Report Study Information Study Number Admission Scheduled Start Study Start [id number] Jan 14 2017 2:54PM 01/17/2017 Jan 17 2017 2:01PM [place] [facility] Cardiac Catheterization Admit Source Facility Department Emergency department [facility] - Central Office Frame Wirer Physician and Clinical Staff Initial MD Simons, [place] Refuse Collector Ellen Blanco,RN Additional MD Anand, Shay Recorder Juni Morales,RT(R) ScrAusten Phillips RCIS(BS) Procedures Performed Procedure Location (Site) Vessel Name Coronary Angiograms LCA Left Coronary Coronary Angiograms RCA Right Coronary LV Gram-hand inj. LV LV Ventricle Equipment Time Senior Center Manager Description Size Mfg Part Number Used/Scraped TRANSDUCER, TRUWAVE [id number] 14:07 ZEE BLANCO * Used W/STOCKCOCK *[id number] [id number] *[id number] 534-520T *[id number] [id number] *[id number] 14:07 Vapps PACK, CCL CUSTOM * Used *[id number] 14:07 Vapps SUPPORT, ARTERIAL ADULT [id number] Used [id number] 14:07 RooT WIRE, 3MMJ .035 180CM 180CM Used *[id number] 14:07 NAMIC MANIFOLD, 4 PORT * Used *[id number] 14:07 NYCOMED OMNIPAQUE, 350 MG, 150ML 150ML [id number] Used [id number] 14:07 LOPEZ MEDICAL BLANKET,WARM AIR CCL * Used *[id number] SHEATH, FR6 TRANSRADIAL 14:07 Pigeonly FR 6 [id number] Used SLENDER 10CM History: Allergies Allergy Reaction No Known Allergies History: Risk Factors Family History of Hypertension Dyslipidemia Previous [place] Previous Heart Failure Premature CAD Yes Yes No No No Prior Valve Prior PCI Prior PCIDate Prior CABG Surgery No Yes 07/07/1998 No Cerebrovascular Peripheral Artery Chronic Lung On Dialysis Diabetes Disease Disease Disease No No No No No History: Stress Tests Stress or Imaging Studies Performed No History: Other Current Smoker Quit Packs a Day Years Used Pack Years No 25 Years Ago 1 15 15 Labs Hgb (g/dl) Hct (%) WBC (l/cumm) Platelets (thousands) 11.60-17.00 35.00-51.00 4.00-11.00 150.00-450.00 11.5 34.5 7.1 178 Glucose (mg/dl) BUN (mg/dl) Creatinine (mg/dl) BUN:Creatinine (1:x) 74.00-106.00 7.00-18.00 0.50-1.30 10.00-20.00 86 15 0.8 18.8 Na (meq/l) K (meq/l) 136.00-145.00 3.50-5.10 141 3.8 PT (sec) INR (PTT:PT) 9.80-11.60 0.90-1.10 13 1.2 Troponin I (ng/ml) CPK-MB (ng/ML) 0.02-0.05 0.50-3.60 0.02 Not Drawn Medication Medication Total Dose (Bolus/Oral) Medication Total Dosage/Unit 1% XYLOCAINE 10 mL FENTANYL 50 mcg RADIAL COCKTAIL 5 mL (Bolus) VERSED 2 mg Medications (Bolus/Oral) Medication Time Given Dosage/Unit Administered By Reason VERSED 01/17/2017 2:40:24 PM 2 mg Moreno-Sofy Shay 2 mg VERSED given in lab by Shay Anand via Peripheral IV. Ordered by Shay Anand. 1% XYLOCAINE 01/17/2017 2:41:39 PM 5 mL Moreno-Sofy Shay 5 mL 1% XYLOCAINE given in lab by Shay Anand in Right Radial via Subcutaneous. Ordered by Shay Cabrera. FENTANYL 01/17/2017 2:41:52 PM 50 mcg Moreno-Sofy Shay 50 mcg FENTANYL given in lab by Shay Anand in Left Antecubital via Peripheral IV. Ordered by Shay Mike. 1% XYLOCAINE 01/17/2017 2:56:40 PM 5 mL Moreno-Sofy Shay 5 mL 1% XYLOCAINE given in lab by Shay Anand in Left Radial via Subcutaneous. Ordered by Shay Al. RADIAL COCKTAIL 01/17/2017 2:59:25 PM 5 mL (Bolus) Moreno-Sofy, Shay 5 mL (Bolus) RADIAL COCKTAIL given in lab by Shay Anand in Left Radial via Radial. Using [Solu tion Name]. Ordered by Shay Anand. Medication (Drip) Medication Time Given Dosage/Unit Concentration/Unit Diluent (ml) Solution Amiodarone Drip 01/17/2017 2:34:36 PM 0.51 mg/min 450 mg 250 D5W Patient arrived on 0.51 mg/min Amiodarone Drip in Left Antecubital via Peripheral IV. Pump/Drip Flow = 17 ml/hr using D5W with a concentration of 450 mg in 250 ml. CARDIZEM 01/17/2017 2:35:43 PM 15 mg Patient arrived on 15 mg CARDIZEM given by Shay Anand in Left Antecubital via Peripheral IV. O rdered by Shay Anand. drip at 15ml/hr Initial Case Assessment Cardiovascular HR Rhythm NIBP Chest Pain 94 afib 131/95 0 Edema Present Skin color Skin None Normal Warm Dry Circulatory - Right Pulses Dorsalis Pedis Femoral Radial 2 2 2 Scale (0,1,2,3,4,d) Scale (0,1,2,3,4,d) Neurological State Oriented to time-place- Alert Moves all extremities person Respiration - General Respiration Rate SpO2 (%) O2 (lpm) (B/min) 18 98 0 Chronological Log Time Study Chronological Log 14:17:07 Patient arrived via Bed. Positive Allens test performed. 14:17:08 Patient Name, D.O.B, / Armband Verified By R.N. 14:17:10 Consent signed by the physician and the patient and verified by the Central Office Frame Wirer staff. 14:17:11 Pre-op and post- op instructions given; patient acknowledges understanding of instructions. 14:18:30 Dr. Moreno is the primary doctor for this procedure. Dr. Medel was accidently added and cou ld not be removed. 14:19:04 Verbal Stimulation=2 Physical Stimulation=2 Airway=2 Respiration=2 TOTAL=8. (0=absent, 1=li mited, 2=present) 14:23:07 Presedation assessment performed by Central Office Frame Wirer RN. 14:23:08 Patient has been NPO for More than 6Hrs. Vitals capture started with the following parameters, Patient=Adult, Interval=5 min, Initial Pr ntogwa=616 mmHg, 14:25:36 Deflation Rate=5 mmHg 14:26:09 HR=84 bpm, DBUR=132/92 mmhg, SpO2=96.0 %, Resp=36 B/min, Ferreira=2 14:29:04 Skin Breakdown-none present per patient 14:31:10 HR=76 bpm, BYRL=674/104 mmhg, Resp=30 B/min, Ferreira=2 14:32:17 A # 20 IV was noted in the Antecubital (left). Grade = 0 Patient arrived on 0.51 mg/min Amiodarone Drip in Left Antecubital via Peripheral IV. Pump/Drip Flow = 17 ml/hr using 14:34:36 D5W with a concentration of 450 mg in 250 ml. Patient arrived on 15 mg CARDIZEM given by Shay Anand in Left Antecubital via Peripheral IV. Ordered by Sin 14:35:43 Shay Goetz. drip at 15ml/hr 14:36:13 RM=971 bpm, HABZ=674/95 mmhg, SpO2=97.0 %, Resp=27 B/min, Ferreira=2 14:37:23 History and physical on the chart or being dictated. 14:37:28 Pressure channel 1 zeroed. 14:37:37 Reference ECG taken Assessment: Initial Case, HR=94 BPM, Rhythm=afib, WIWR=481/95 mmhg, Chest Pain=0, Edema=None, Color=Normal, Skin = Warm, Dry 14:37:40 Right Pulses: Miguel Angel Ped=2, Femoral=2, Radial=2 Neurological: State=Alert, Ox3, ELLIOTT Respiration: Resp=18 B/min, SpO2=98 %, O2=0 lpm 14:38:36 Right Radial and groin(s) prepped with 2% chlorhexidine, and with a 3 min. waiting time. 14:40:24 2 mg VERSED given in lab by Shay Anand via Peripheral IV. Ordered by Bj Anand. Time Out. Correct patient, correct procedure,correct physician, ,power injector not loaded with contrast with surgical 14:41:06 team present. Time Out Concurred by MD, individual staff and REFORMATORY ATTENDANT in procedure 14:41:10 KS=147 bpm, LQPA=349/99 mmhg, SpO2=95.0 %, Resp=23 B/min, Ferreira=2 14:41:22 Presedation re-assessment performed by Central Office Frame Wirer RN. 14:41:24 Case Start 14:41:25 Verbal Stimulation=2 Physical Stimulation=2 Airway=2 Respiration=2 TOTAL=8. (0=absent, 1=li mited, 2=present) 5 mL 1% XYLOCAINE given in lab by Bj Anandro in Right Radial via Subcutaneous. Ordered b y Kika, 14:41:39 Shay. 50 mcg FENTANYL given in lab by Bj Anandro in Left Antecubital via Peripheral IV. Ordere d by Kika, 14:41:52 Shay. 14:46:11 KB=996 bpm, KCZI=872/104 mmhg, Resp=26 B/min, Ferreira=2 14:47:11 Unable to access right radial. 14:48:19 Left Radial prepped with 2% chlorhexidine, and draped after a 3 min. waiting time. 14:51:14 PI=123 bpm, JVNU=704/83 mmhg, Resp=22 B/min, Ferreira=2 14:54:10 Failed access in right radial. Left radial being prepped. Positive Allens test performed on left radial. 14:56:09 UN=127 bpm, PKJK=510/90 mmhg, SpO2=92.0 %, Resp=25 B/min, Ferreira=2 5 mL 1% XYLOCAINE given in lab by Shay Anand in Left Radial via Subcutaneous. Ordered by Kika, 14:56:40 Shay. 14:58:47 Access site was Radial Artery. left radial A SHEATH, FR6 TRANSRADIAL SLENDER 10CM FR 6 was advanced into the Radial (left) using the Cutris rojas 14:59:05 technique. 5 mL (Bolus) RADIAL COCKTAIL given in lab by Shay Anand in Left Radial via Radial. Neeta beltran [Solution Name]. 14:59:25 Ordered by Shay Anand. A JR 4.0 INFINITI CATHETER FR 5 was advanced over a wire. OMNIPAQUE, 350 MG, 150ML 150ML was u sed for 15:00:22 injections. Recorded Pressure: LV, HR=89, Condition=Condition 1 15:01:11 (Left Ventricle) LV 106/9/15 15:01:12 RN=869 bpm, EQFF=745/76 mmhg, SpO2=91.0 %, Resp=25 B/min, Ferreira=2 15:01:34 The LV was manually injected with 10 cc's and visualized. OMNIPAQUE, 350 MG, 150ML 150ML u sed. Recorded Pressure: LV, Ao, HR=94, Condition=Condition 1 15:01:46 (Left Ventricle) LV 106/11/13, (Aorta) Ao 119/82/100 15:02:08 The RCA was injected and visualized at various angles. OMNIPAQUE, 350 MG, 150ML 150ML use d. Recorded Pressure: Ao, HR=92, Condition=Condition 1 15:02:22 (Aorta) Ao 108/81/94 After removing the current catheter a JL 3.5 INFINITI CATHETER FR 5 was advanced over a WIRE, 3MMJ .035 180CM 15:02:59 180CM. After removing the current catheter a JL 4.0 INFINITI CATHETER FR 5 was advanced over a WIRE, 3MMJ .035 180CM 15:04:54 180CM. 15:06:07 HR=98 bpm, CUAN=165/84 mmhg, SpO2=90.0 %, Resp=24 B/min, Ferreira=2 15:06:39 The LCA was injected and visualized at various angles. OMNIPAQUE, 350 MG, 150ML 150ML use d. 15:08:00 Catheter was removed 15:11:12 FN=306 bpm, XADB=973/79 mmhg, SpO2=90.0 %, Resp=18 B/min, Ferreira=2 15:14:31 Stemi alert called. Patient to be monitored in DOCU until able to return to the lab. 15:15:54 Vitals capture stopped. 19:25:07 Patient moved to [facility] (formerly [facility]3] End Study - Contrast Media Used In Study Contrast Total Opened (mL) Total Used (mL) Total Wasted (mL) Omnipaque 50 50 0 End Study - Maximum Contrast Load Max Contrast Load (mL) 566.8 End Study - Radiation Exposure Fluoro Time (minutes) 2.6 End Study - Patient Disposition Complications Transferred To Telemetry Bed
--- NOTE | 2017-01-17 20:10 | MA ---
cc: COREY THOMAS MD DATE 01/17/17 1948 PROCEDURE PERFORMED 1. Left heart catheterization 2. Selective right and left coronary angiography. 3. Left ventriculogram 4. Successful PCI to the right coronary artery. INDICATION Unstable angina, new-onset atrial fibrillation. Positive stress test. DESCRIPTION OF PROCEDURE Consent signed. The patient was brought into the cardiac cath in fasting state. The left wrist was prepped and draped in sterile fashion. Using 1% lidocaine for local anesthesia and micropuncture kit, a 6-Jordanian sheath was inserted into the left radial artery. Antispasmodic cocktail given. Then selective right and left coronary angiography was performed with JR-4 and a JL- 4 diagnostic catheters. Angiography was taken in multiple views. The JR-4 was introduced over a wire to the left ventricle. This was followed by pressure recordings, left ventriculogram on pullback. We identified a significant lesion in the right coronary artery of 99% narrowing in its mid segment, diffusely diseased with FARRAH III flow amenable to percutaneous intervention. Thus we prepared to fix. For this, heparin was given for anticoagulation. The right coronary artery was engaged with a JR-4 6-Jordanian guide. The vessel was wired with a femoral wire which was anchored distally. The vessel was predilated with a 3-0 12 balloon followed by insertion and deployment of a 3.5 x 32 drug-eluting stent, however, the stent did not cover the whole proximal lesion for which another 4-0 x 12 inserted and deployed. The stents were postdilated with 4-0 x 12 balloon to high atmospheres. Final angiographic views revealed good stent position and expansion with FARRAH III flow and no residual stenosis. The patient tolerated the procedure without complications. Estimated blood loss less than 30 mL. CONTRAST Total contrast used 85 mL. The right wrist access site was closed with a TR band. The patient was loaded with Plavix after the procedure. RESULTS The ventriculogram revealed inferior wall hypokinesis with estimated ejection fraction of around 40%. The LVEDP was 14. There was no gradient upon pullback from left ventricle to aorta. ANGIOGRAPHIC RESULTS 1. Right coronary artery is a dominant vessel is giving off the PDA, has significant 90% stenosis which is long in its mid segment. There is FARRAH II flow. The PDA and the distal right coronary artery are patent with FARRAH III flow. 2. The left main is short and patent. 3. Right LAD is a transapical vessel of prominent size. It has minimal regularities and a 10% lesion in its mid segment and it is giving off a big diagonal which bifurcates in the apical wall. This diagonal has a 20% lesion in its proximal segment. Other than that it is pretty much open with nonobstructive coronary artery disease. 4. The left circumflex artery is diffusely diseased with some calcification, but for the most part it has nonobstructive coronary artery disease. It is giving off three OM vessels which are tortuous and patent. CONCLUSION 1. Successful PCI to the right coronary artery in the setting of unstable angina and new-onset atrial fibrillation. 2. LV systolic dysfunction with mild LV systolic dysfunction with estimated ejection fraction of 40%. RECOMMENDATIONS The patient will be going to the [facility] for post cath care. He will be continued on aspirin, Plavix and Xarelto. We will continue aggressive medical management for coronary artery disease. We will do a transesophageal echocardiogram and cardioversion later today. MD TESFAYE Alexis/ /5:37 PM /8:01 PM CLARKE
[2017-01-17] MEDS: ATORVASTATIN 20 MG TAB PO SCH (22:02)
[2017-01-18] VITALS (15 sets, daily range): BP systolic 104–130; BP diastolic 67–92; PULSE 66–84; RESP 20–22; TEMP 97.8–98.6; O2SAT 95–97
[2017-01-18] MEDS: POTASSIUM CHLORIDE 20 MEQ CONTROLLED RELEASE TAB PO SCH (09:38)
[2017-01-18] MEDS: ASPIRIN 81 MG CHEW TAB CHEW SCH (09:38)
[2017-01-18] MEDS: FUROSEMIDE 20 MG TAB PO SCH (09:39)
[2017-01-18] MEDS: METOPROLOL TARTRATE 25 MG TAB PO SCH (09:39)
[2017-01-18] MEDS: RIVAROXABAN 20 MG TAB PO SCH (09:39)
[2017-01-18] MEDS: SODIUM CHLORIDE 0.9% FLUSH 10 ML FLUSH IV FLUSH SCH (09:40)
--- NOTE | 2017-01-18 10:46 | PD.CARD.PN ---
Subjective Subjective Remarks no complaints no overnight events Objective Medications Current Medications Medications (Trade) Dose Ordered Sig/Amaury Route Start Time Stop Time Status Last Admin (NS Flush) 2 ml UNSCH PRN IV FLUSH 01/14/17 15:00 (NS Flush) 2 ml BID IV FLUSH 01/14/17 21:00 01/18/17 09:40 (Tylenol) 650 mg Q4H PRN PO 01/14/17 15:00 01/16/17 17:08 (Zofran Inj) 4 mg Q6H PRN IVP 01/14/17 15:00 (Tylenol) 650 mg Q6H PRN PO 01/14/17 15:00 (Narcan Inj) 0.4 mg UNSCH PRN IV 01/14/17 15:00 (Milk Of Magndeepak Liq) 30 ml Q12H PRN PO 01/14/17 15:00 (KCl) 20 meq DAILY PO 01/15/17 09:00 01/18/17 09:38 (Aspirin Chew) 81 mg DAILY CHEW 01/15/17 09:00 01/18/17 09:38 (Lipitor) 20 mg HS PO 01/14/17 21:00 01/17/17 22:02 (Lopressor) 25 mg Q12HR PO 01/14/17 22:45 01/18/17 09:39 (Xarelto) 20 mg DAILY PO 01/15/17 09:00 01/18/17 09:39 Furosemide 20 mg 20 mg DAILY PO 01/17/17 09:00 01/18/17 09:39 Diltiazem HCl 125 mg/Sodium Chloride 125 ml @ 0 mls/hr TITRATE IV 01/16/17 13:15 01/17/17 10:55 (Cordarone Inj/ D5W ([place]) Inj) 256 ml @ 0 mls/hr CONTINUOUS IV 01/16/17 15:15 01/16/17 17:09 Vital Signs / I&O Vital Signs Date Time Temp Pulse Resp B/P Pulse Ox O2 Delivery O2 Flow Rate FiO2 01/18/17 08:00 97 Nasal Cannula 2.00 01/18/17 08:00 97.8 72 20 130/92 97 01/18/17 07:00 68 01/18/17 06:00 66 01/18/17 05:00 72 01/18/17 04:00 68 01/18/17 03:00 98.2 68 22 104/67 95 01/18/17 03:00 68 01/18/17 02:00 68 01/18/17 01:00 66 01/18/17 00:00 68 01/17/17 23:00 96.5 72 20 117/73 93 01/17/17 23:00 68 01/17/17 22:00 78 01/17/17 21:00 84 01/17/17 20:00 70 01/17/17 19:00 66 01/17/17 19:00 97 Nasal Cannula 2.00 01/17/17 19:00 97.5 63 22 121/87 97 01/17/17 18:34 97.9 60 21 108/79 94 01/17/17 18:34 94 Nasal Cannula 2.00 01/17/17 13:15 90 107/78 01/17/17 13:00 99 108/73 01/17/17 12:00 109 125/92 01/17/17 12:00 98.3 86 19 114/86 95 01/17/17 11:30 114 116/91 95 01/17/17 10:55 108 16 127/88 98 I/O 01/17/17 01/17/17 01/17/17 01/18/17 01/18/17 01/18/17 06:59 14:59 22:59 06:59 14:59 22:59 Intake Total 240 ml 650 ml Output Total 300 ml 200 ml 650 ml Balance -60 ml -200 ml 0 ml Intake Oral 240 ml 480 ml IV Total 170 ml Output Urine Total 300 ml 200 ml 650 ml # Bowel Movements 0 Physical Exam GENERAL: Well-nourished, well-developed patient. SKIN: Warm and dry. HEAD: Normocephalic. EYES: No scleral icterus. No injection or drainage. NECK: Supple, trachea midline. No JVD or lymphadenopathy. CARDIOVASCULAR: Regular rate and rhythm without murmurs, gallops, or rubs. RESPIRATORY: Breath sounds equal bilaterally. No accessory muscle use. GASTROINTESTINAL: Abdomen soft, non-tender, nondistended. EXTREMITIES: No cyanosis, or edema. NEUROLOGICAL: Awake, alert, and oriented x 3. Non-focal. Imaging Last Impressions Myocardial Perfusion Scan Nuc Med 01/16/17 0000 Signed Impressions: Service Date/Time: January 10:36 - CONCLUSION: Reduction in resting perfusion to RCA territory. RISK CATEGORY: Low (<1%% Annual Mortality Rate) Tiff Darby MD Chest X-Ray 01/14/17 1238 Signed Impressions: Service Date/Time: Saturday, January 14, 2017 12:40 - CONCLUSION: 1. Cardiomegaly with small bilateral effusions. Sukhi Rose MD Assessment and Plan Problem List: (1) CAD (coronary artery disease) Assessment and Plan: s/p PCI/MARY to RCA Afib controlled Recommendations: Cont DAPT with ASA and Plavix Cont Xarelto Increase Lopressor to 100mg PO BID D/C Amio drip, start Amio 200mg PO BID Encourage ambulation and incentive spirometry If continues to be stable throughout the day and HR controlled, he can be d/c home today Follow up with me upon discharge (2) Atrial fibrillation with RVR (3) Benign hypertension (4) Acute congestive heart failure Problem Qualifiers (1) CAD (coronary artery disease): (2) Acute congestive heart failure: Qualified Code: I50.9 - Acute congestive heart failure, unspecified congestive heart failure type Tiffanie-Shay Goetz MD Jan 18, 2017 10:45
[2017-01-18] MEDS ORDERED: AMIODARONE 200 MG TAB PO SCH (11:30)
--- NOTE | 2017-01-18 12:43 | ECHRPT ---
Indication: CONCLUSIONS No thrombus in the SLICK Global LV hypokinesis Decrease LV sytolic function 30-35% Moderate mitral regurgitation No pericardial effusion BP: / HR: Rhythm: MEASUREMENTS (Male / Female) Normal Values Technical Quality: DOPPLER MR Peak Velocity 321.0 cm/s MR Peak Gradient 41.2 mmHg Medications Complications Proc. Components Shay Anand MD (Electronically Signed) Final Date:18 January 2017 12:42
--- NOTE | 2017-01-18 15:53 | HHI.DCPOC ---
Discharge Care Plan Diagnosis: (1) CAD (coronary artery disease) (2) Atrial fibrillation with RVR (3) Acute CHF (congestive heart failure) Goals to Promote Your Health * To prevent worsening of your condition and complications * To maintain your health at the optimal level Directions to Meet Your Goals Take your medications as prescribed Follow your dietary instruction Follow activity as directed Keep your appointments as scheduled Take your immunizations and boosters as scheduled If your symptoms worsen call your PCP, if no PCP go to Urgent Care Center or Emergency Room Smoking is Dangerous to Your Health. Avoid second hand smoke Call the 24-hour hour crisis hotline for domestic abuse at Praveen Sosa DO Jan 18, 2017 15:53
--- NOTE | 2017-01-18 15:59 | HHI.DS ---
Discharge Summary Admission Date Jan 14, 2017 at 14:54 Discharge Date: Jan 18, 2017 Admitting Diagnosis A. fib with RVR (1) Atrial fibrillation with RVR ICD Code: I48.91 (2) Acute CHF (congestive heart failure) ICD Code: I50.9 (3) Hypokalemia ICD Code: E87.6 (4) IFG (impaired fasting glucose) ICD Code: R73.01 (5) Benign hypertension ICD Code: I10 Procedures GHADA Brief History - From Admission 66-year-old male with a history of coronary artery disease with cardiac stent 1 , hypertension hyperlipidemia presented to the ED for evaluation of worsening shortness of breath and fatigue 5 days duration without any associated chest pain or heart palpitation. He reports onset of shortness of breath on 01/09/17 while cutting his grass which never improved. He also endorses orthopnea as well as bilateral lower extremity edema. EMS was call and patient was found to be in A. fib with RVR. He denies any known history of atrial fibrillation. Abnormal labs include BNP 475, which patient also denies any prior history of congestive heart failure. He denies any GI bleed, hematuria or hemoptysis. CBC/BMP: 01/16/17 0837 01/17/17 0714 Significant Findings Laboratory Tests Test 01/16/17 01/17/17 08:37 07:14 Red Blood Count 3.03 MIL/MM3 (4.50-5.90) Hemoglobin 11.5 GM/DL (13.0-17.0) Hematocrit 34.5 % (39.0-51.0) Mean Corpuscular Volume 114.0 FL (80.0-100.0) Mean Corpuscular Hemoglobin 37.9 PG (27.0-34.0) Red Cell Distribution Width 18.8 % (11.6-17.2) Monocytes (%) (Auto) 11.5 % (0.0-8.0) Estimat Glomerular Filtration 87 ML/MIN (>89) Rate Magnesium Level 1.4 MG/DL (1.5-2.5) PE at Discharge GENERAL: Well-developed well-nourished. In no acute distress. SKIN: Warm and dry. No lesions noted. HEENT: Normocephalic. Pupils equal and round. Mucous membranes pink and moist. CARDIOVASCULAR: Rapid irregular rate and rhythm. No murmur appreciated. RESPIRATORY: No accessory muscle use. Clear to auscultation. Breath sounds equal bilaterally. GASTROINTESTINAL: Abdomen soft, non-tender, nondistended. Bowel sounds x4. MUSCULOSKELETAL: No obvious deformities. No clubbing or cyanosis. No edema. NEUROLOGICAL: Awake and alert. No focal neurological deficits. Moves upper and lower extremities spontaneously. Normal speech. PSYCHIATRIC: Appropriate mood and affect; insight and judgment normal. Hospital Course Atrial fibrillation RVR/ CAD ACS ruled out per protocol with serial cardiac enzyme and EKGs. Cardiology was consulted. Started on oral metoprolol, amiodarone GTT and Cardizem GTT. He was continued on Xarelto. He had a GHADA which did not reveal a thrombus. He had a stress test which warranted further evaluation with cardiac catheterization. He is s/p PCI/MARY to RCA. His symptoms improved afterwards. He will continue ASA/ Plavix and a cardiac regimen. He was started on Xarelto and oral amiodarone. He will follow up with cardiology in one week. Acute systolic congestive heart failure Echocardiogram showed severe reduction in left ventricular systolic function, EF 2530 %; global left ventricular dysfunction; moderate left atrial dilation; moderate MVR. Chest x-ray with finding of cardiomegaly with small bilateral effusions. He was continued on Lasix. We monitored strict I's and O's and daily weights. He will follow up with cardiology. Hypomagnesemia/ Hypokalemia His electrolytes were monitored and repleted in the hospital. He will be discharged on potassium supplementation. He will have repeat labs in 2-3 days. Pt Condition on Discharge: Stable Discharge Disposition: Discharge Home Discharge Time: > 30 minutes Discharge Instructions Follow up Referrals: Cardiology - [address] Moreno PCP Follow-up - 1 Week New Orders: BASIC METABOLIC PROF - 2-3 Days MAGNESIUM (MG) - 2-3 Days New Medications: Amiodarone (Amiodarone) 200 Mg Tab 200 MG PO Q12HR A fib #60 TAB Furosemide (Furosemide) 20 Mg Tab 20 MG PO DAILY Heart failure #30 TAB Metoprolol Tartrate (Lopressor) 50 Mg Tab 100 MG PO Q12HR Heart #120 TAB Potassium Chloride Microencaps (Potassium Chloride Microencaps) 20 Meq Tab 20 MEQ PO DAILY Lasix #30 TAB Rivaroxaban (Xarelto) 20 Mg Tab 20 MG PO DAILY A fib #30 TAB Continued Medications: Aspirin (Aspirin) 81 Mg Chew 81 MG CHEW DAILY Ref 0 TAB Atorvastatin (Atorvastatin) 20 Mg Tab 20 MG PO HS Cholesterol Management #0 Ref 0 TAB Famotidine (Famotidine) 20 Mg Tab 20 MG PO DAILY #60 Ref 0 TAB Discontinued Medications: Metoprolol Succinate ER 24 HR (Metoprolol Succinate ER 24 HR) 50 Mg Tab 50 MG PO DAILY #0 Ref 0 TAB Praveen Sosa DO Jan 18, 2017 15:59
[2017-01-18] MEDS ORDERED: FURO20TA PO (16:03)
[2017-01-18] MEDS ORDERED: METO-309 PO (16:03)
[2017-01-18] MEDS ORDERED: XARE20TA PO (16:03)
[2017-01-18] MEDS ORDERED: POTA20TA5 PO (16:03)
[2017-01-18] MEDS ORDERED: AMIO200T PO (16:03)
[2017-01-18] MEDS ORDERED: METOPROLOL TARTRATE 50 MG TAB PO SCH ×2 (21:00)
== END 2017-01-18 17:02 | disposition home or self-care (01) | DRG 246 ==
LOC: NEPE 12:13 → NEDA 14:54 → N04B 19:26 → HCIS 01-17 15:31
PROVIDERS: ADMIT Hospitalist; ATTEND Hospitalist
PROC: 4A023N7 Measurement of Cardiac Sampling and Pressure, Left Heart, Percutaneous Approach (ICD-10-PCS; 2017-01-17)
PROC: B2151ZZ Fluoroscopy of Left Heart using Low Osmolar Contrast (ICD-10-PCS; 2017-01-17)
PROC: B2111ZZ Fluoroscopy of Multiple Coronary Arteries using Low Osmolar Contrast (ICD-10-PCS; 2017-01-17)
PROC: B246ZZ4 Ultrasonography of Right and Left Heart, Transesophageal (ICD-10-PCS; 2017-01-17)
PROC: 027035Z Dilation of Coronary Artery, One Artery with Two Drug-eluting Intraluminal Devices, Percutaneous Approach (ICD-10-PCS; principal; 2017-01-17 13:45)
DX: I48.91 Unspecified atrial fibrillation (principal); I50.21 Acute systolic (congestive) heart failure; I25.110 Atherosclerotic heart disease of native coronary artery with unstable angina pectoris; E83.42 Hypomagnesemia; I25.10 Atherosclerotic heart disease of native coronary artery without angina pectoris; I11.0 Hypertensive heart disease with heart failure; E78.5 Hyperlipidemia, unspecified; K21.9 Gastro-esophageal reflux disease without esophagitis; E87.6 Hypokalemia; R73.01 Impaired fasting glucose; E78.00 Pure hypercholesterolemia, unspecified; Z95.5 Presence of coronary angioplasty implant and graft; Z79.82 Long term (current) use of aspirin; I34.0 Nonrheumatic mitral (valve) insufficiency
CPT/HCPCS: 71010; 78451; 80048; 80053; 80061; 82550; 83036; 83735; 83880; 84132; 84439; 84443; 84484; 85025; 85610; 85730; 92928; 93005; 93017; 93306; 93312; 93320; 93325; 93454; 93458; 96365; 96374; A9502; C1725; C1769; C1874; C1887; C1893; J0282; J1644; J1940; J2250; J2785; J3010; J3475; J7060; Q9967

== ENCOUNTER → 2017-01-21 | Outpatient (CLI) | payer MEDICARE ==
[~2017-01-21] MED LIST: AMIO200T PO; ASPI81CH CHEW; ATOR20TA15 PO; FAMO20TA2 PO; FURO20TA PO; METO-309 PO; POTA20TA5 PO; XARE20TA PO
[2017-01-21 12:54] LABS: BICARBONATE 26.9 MEQ/L (21.0-32.0); MAGNESIUM 1.5 MG/DL (1.5-2.5)
== END ==
LOC: CLAB 12:08
PROVIDERS: ATTEND Hospitalist
DX: E83.42 Hypomagnesemia (principal)
CPT/HCPCS: 36415; 80048; 83735

== ENCOUNTER 2018-02-10 12:42 | Inpatient (IN) ==
[2018-02-10] MEDS: Metoprolol Inj 5 MG/5 ML Vial IV.PUSH SCH ×3 (13:03→13:14)
--- NOTE | 2018-02-10 13:15 | ED ---
HPI General Chief Complaint: Chest Pain Stated Complaint: Medical Time Seen by Provider: 02/10/18 12:53 History of Present Illness HPI narrative: 67-year-old male is brought to the emergency department by EMS for evaluation of heart palpitations and shortness of breath. Per EMS the patient was in AF with RVR upon their arrival and has been with sustained heart rate around 148 bpm. Patient states that yesterday afternoon he began to feel heart palpitations and shortness of breath. States that this was intermittent throughout the day yesterday and has persisted to this morning. States that it started to worsen this morning and he called EMS. States that he had similar symptoms last year which resulted in him receiving 2 stents. He is anticoagulated on Eliquis. He denies any recent long distance travel. States he has been feeling chills occasionally. Denies any chest pain, abdominal pain , nausea, vomiting, diarrhea, lightheadedness, dizziness, swelling of the extremities, weakness. He does not have a PCP or vest baster here in the area as he lives in [facility] and lives here only part of the year. Complete Quality Measures for STEMI Alert Patients Related Data Home Medications Medication Instructions Recorded Confirmed apixaban [Eliquis] 5 mg PO BID 02/10/18 02/10/18 atorvastatin 80 mg PO DAILY 02/10/18 02/10/18 cyanocobalamin (vitamin B-12) 1,000 mcg PO DAILY 02/10/18 02/10/18 [Vitamin B-12] famotidine 20 mg PO DAILY 02/10/18 02/10/18 folic acid 1 mg PO DAILY 02/10/18 02/10/18 levothyroxine 25 mcg PO DAILY 02/10/18 02/10/18 lisinopril 20 mg PO DAILY 02/10/18 02/10/18 metoprolol succinate 100 mg PO DAILY 02/10/18 02/10/18 Allergies Allergy/AdvReac Type Severity Reaction Status Date / Time No Known Allergies Allergy Unverified 02/10/18 12:52 Review of Systems Except as stated in HPI: all other systems reviewed are negative [facility] Medical History Medical History CAD (coronary artery disease) (Acute) HTN (hypertension) (Acute) Surgical History Surgical History H/O heart artery stent (Acute) History of cardiac cath (Acute) Social History Social History Substance History: No History of Abuse Second Hand Smoke Exposure: No Smoking Status: Former smoker How Often Do You Have a Drink Containing Alcohol: Monthly or less Recent Travel in [facility] within the Last 8 Weeks: No Recent Out of Country Travel within the Last 8 Weeks: No Exam Narrative Exam Narrative: GENERAL: Well-nourished and well-developed pleasant patient in no acute distress who is nontoxic appearing. SKIN: Warm and dry without any obvious rashes or lesions. HEAD: Normocephalic and atraumatic. No bony point tenderness or crepitus noted throughout the sinuses. EYES: No injection, drainage, or hyphema noted. PERRLA. EOMI. ENT: No nasal drainage noted. Oropharynx is clear and the TMs are normal with good landmarks. NECK: Supple and the trachea is midline. No lymphadenopathy is noted throughout the cervical chains. No thyroid masses or abnormalities palpated. No carotid bruits auscultated. CARDIOVASCULAR: Irregularly irregular, tachycardic. No murmurs. RESPIRATORY: Breath sounds are equal bilaterally with no accessory muscle use, wheezing, rhonchi, or crackles. GASTROINTESTINAL: Abdomen is soft, non-tender, and nondistended. No hepatosplenomegaly. MUSCULOSKELETAL: No obvious deformities, swelling, cyanosis, or ecchymosis is present throughout the upper and lower extremities. Patient has full range of motion without any signs of neurovascular compromise. Distal pulses are 2+ throughout. NEUROLOGICAL: Awake, alert, and oriented. Normal speech and gait. Cranial nerves are grossly intact. Course Initial Documented Vital Signs Temperature 98.6 F 02/10/18 12:53 Pulse Rate 160 H 02/10/18 12:53 Respiratory Rate 21 02/10/18 12:53 Blood Pressure 146/87 H 02/10/18 12:53 Pulse Oximetry 98 02/10/18 12:53 Last Documented Vital Signs Temperature 98.6 F 02/10/18 12:53 Pulse Rate 126 H 02/10/18 15:00 Respiratory Rate 20 02/10/18 15:00 Blood Pressure 155/101 H 02/10/18 15:00 Pulse Oximetry 98 02/10/18 15:00 Medical Decision Making KEVON Attestation KEVON supervised visit: Yes Attestation: I, Dr. Lynn, have reviewed the advance practice practitioner's documentation and am in agreement, met with the patient face to face, made the diagnosis, and the medical decision making was done by me. *My assessment and Findings: Patient is seen and evaluated with PA, please see PA notes for further details. He initially presented with A. fib with RVR and was afebrile, initially, metoprolol was given for rate control, after 3 5 mg boluses of metoprolol, his heart rate came down to the 120s. His blood pressure was still fairly good. Chest x-rays also show signs of pneumonia. At this point, plan would be to admit the patient for further treatment. IV antibiotics and IV fluids were given in the ER. [facility] Narrative Medical decision making narrative: 67-year-old male presents to the emergency department by EMS for evaluation of A. fib with RVR. IV access is obtained, labs were drawn and sent. Patient is placed on cardiac telemetry and pulse oximetry monitoring. Patient is noted to be in A. fib with RVR with a ventricular rate of 148 bpm. Patient is administered metoprolol 5 mg IV q5min x 3. His heart rate has come down to 120s-130s bpm with these 3 doses. He will be given a 500 cc NS fluid bolus and HR will be reevaluated. Chest x-ray shows pneumonia. Lactic acid and blood cultures drawn. Patient administered IV rocephin and zithromax. Heart rate has come down to around 110s -120bpm. He will be admitted for IV antibiotics, fluids, rate control and to trend out cardiac enzymes. I spoke with Dr. Hobson who agrees to admit the patient to his service. Differential Diagnosis Differential Diagnosis: Atrial fibrillation with RVR versus ACS versus CHF Lab Data Lab results reviewed: Yes I reviewed the patient's lab results. Result diagrams: 02/10/18 12:50 02/10/18 12:50 Lab Results 02/10/18 02/10/18 02/10/18 Range/Units 12:50 12:50 12:50 WBC 8.6 (4.0-11.0) th/mm3 RBC 3.41 L (4.50-5.90) mil/mm3 Hgb 11.6 L (13.0-17.0) gm/dL Hct 34.7 L (39.0-51.0) % MCV 101.8 H (80.0-100.0) fL MCH 34.0 (27.0-34.0) pg MCHC 33.4 (32.0-36.0) % RDW 13.9 (11.6-17.2) % Plt Count 195 (150-450) th/mm3 MPV 9.1 (7.0-11.0) fL Neut % (Auto) 72.1 H (16.0-70.0) % Lymph % (Auto) 19.3 (9.0-44.0) % Story % (Auto) 7.9 (0.0-8.0) % Eos % (Auto) 0.2 (0.0-4.0) % Baso % (Auto) 0.5 (0.0-2.0) % Neut # (Auto) 6.2 (1.8-7.7) th/mm3 Lymph # (Auto) 1.7 (1.0-4.8) th/mm3 Story # (Auto) 0.7 (0.0-0.9) th/mm3 Eos # (Auto) 0.0 (0.0-0.4) th/mm3 Baso # (Auto) 0.0 (0.0-0.2) th/mm3 WBC Differential . Differential Comment Auto diff final PT 13.1 H (9.8-11.6) sec INR 1.3 Ratio APTT 29.6 (24.3-30.1) sec Sodium (136-145) meq/L Potassium (3.5-5.1) meq/L Chloride (98-107) meq/L Carbon Dioxide (21.0-32.0) meq/L Anion Gap (5-15) meq/L BUN (7-18) mg/dL Creatinine (0.60-1.30) mg/dL Estimated GFR (>89) mL/min Random Glucose (74-106) mg/dL Calcium (8.5-10.1) mg/dL Total Bilirubin (0.2-1.0) mg/dL AST (15-37) U/L ALT (12-78) U/L Alkaline Phosphatase (45-117) U/L Troponin I Less than 0.02 L (0.02-0.05) ng/mL B-Natriuretic Peptide (0-100) pg/mL Total Protein (6.4-8.2) g/dL Albumin (3.4-5.0) g/dL 02/10/18 02/10/18 Range/Units 12:50 12:50 WBC (4.0-11.0) th/mm3 RBC (4.50-5.90) mil/mm3 Hgb (13.0-17.0) gm/dL Hct (39.0-51.0) % MCV (80.0-100.0) fL MCH (27.0-34.0) pg MCHC (32.0-36.0) % RDW (11.6-17.2) % Plt Count (150-450) th/mm3 MPV (7.0-11.0) fL Neut % (Auto) (16.0-70.0) % Lymph % (Auto) (9.0-44.0) % Story % (Auto) (0.0-8.0) % Eos % (Auto) (0.0-4.0) % Baso % (Auto) (0.0-2.0) % Neut # (Auto) (1.8-7.7) th/mm3 Lymph # (Auto) (1.0-4.8) th/mm3 Story # (Auto) (0.0-0.9) th/mm3 Eos # (Auto) (0.0-0.4) th/mm3 Baso # (Auto) (0.0-0.2) th/mm3 WBC Differential Differential Comment PT (9.8-11.6) sec INR Ratio APTT (24.3-30.1) sec Sodium 143 (136-145) meq/L Potassium 4.3 (3.5-5.1) meq/L Chloride 106 (98-107) meq/L Carbon Dioxide 23.6 (21.0-32.0) meq/L Anion Gap 13 (5-15) meq/L BUN 11 (7-18) mg/dL Creatinine 1.14 (0.60-1.30) mg/dL Estimated GFR 64 L (>89) mL/min Random Glucose 102 (74-106) mg/dL Calcium 8.8 (8.5-10.1) mg/dL Total Bilirubin 1.8 H (0.2-1.0) mg/dL AST 24 (15-37) U/L ALT 14 (12-78) U/L Alkaline Phosphatase 118 H (45-117) U/L Troponin I (0.02-0.05) ng/mL B-Natriuretic Peptide 529 H (0-100) pg/mL Total Protein 7.6 (6.4-8.2) g/dL Albumin 3.5 (3.4-5.0) g/dL Imaging Data Attestation: I personally reviewed and interpreted this imaging study as follows : Radiologist's impression: Chest X-Ray 02/10/18 12:53 CONCLUSION: Right basilar airspace disease likely pneumonia. Discharge Plan Discharge Disposition Patient Disposition: 30 Still Patient Discharge Details Diagnosis: Atrial fibrillation with RVR, Pneumonia Physicians Team ED Provider: Brayan Lynn ED Midlevel Provider: Joie Hobson Primary Care Provider: UNKNOWN, Rxs /Orders / Referrals /Forms Prescriptions: No Action atorvastatin 80 mg Tablet 80 mg PO DAILY RF: 0 lisinopril 20 mg Tablet 20 mg PO DAILY RF: 0 metoprolol succinate 100 mg Tablet Extended Release 24 Hr 100 mg PO DAILY RF: 0 cyanocobalamin (vitamin B-12) [Vitamin B-12] 1,000 mcg Tablet 1,000 mcg PO DAILY RF: 0 levothyroxine 25 mcg Tablet 25 mcg PO DAILY RF: 0 famotidine 20 mg Tablet 20 mg PO DAILY RF: 0 folic acid 1 mg Tablet 1 mg PO DAILY RF: 0 apixaban [Eliquis] 5 mg Tablet 5 mg PO BID RF: 0 Discharge Instructions Patient Printed Instructions: Chest Pain (ED) Status ED Status: With Doctor
[2018-02-10 13:43] LABS: Baso % (Auto) 0.5 % (0.0-2.0); Eos % (Auto) 0.2 % (0.0-4.0); Hematocrit 34.7 % (39.0-51.0); Hemoglobin 11.6 gm/dL (13.0-17.0); Lymph # (Auto) 1.7 th/mm3 (1.0-4.8); Lymph % (Auto) 19.3 % (9.0-44.0); Mean Corpuscular HGB Conc 33.4 % (32.0-36.0); Mean Corpuscular Volume 101.8 fL (80.0-100.0); Mean Platelet Volume 9.1 fL (7.0-11.0); Mono # (Auto) 0.7 th/mm3 (0.0-0.9); Mono % (Auto) 7.9 % (0.0-8.0); Neut # (Auto) 6.2 th/mm3 (1.8-7.7); Neut % (Auto) 72.1 % (16.0-70.0); Platelet Count 195 th/mm3 (150-450); Red Blood Count 3.41 mil/mm3 (4.50-5.90); Red Cell Distribution Width 13.9 % (11.6-17.2); White Blood Count 8.6 th/mm3 (4.0-11.0)
[2018-02-10 13:49] LABS: Activated Partial Thrombo Time 29.6 sec (24.3-30.1); INR 1.3 Ratio; Prothrombin Time 13.1 sec (9.8-11.6)
[2018-02-10] MEDS ORDERED: Sodium Chlor 0.9% Inj 500 ML IV.SIG ONE (13:53)
[2018-02-10 13:56] LABS: Alanine Aminotransferase 14 U/L (12-78); Albumin 3.5 g/dL (3.4-5.0); Anion Gap 13 meq/L (5-15); Aspartate Aminotransferase 24 U/L (15-37); Blood Urea Nitrogen 11 mg/dL (7-18); Calcium 8.8 mg/dL (8.5-10.1); Carbon Dioxide 23.6 meq/L (21.0-32.0); Chloride 106 meq/L (98-107); Glomerular Filtration Rate 64 mL/min (>89); Glucose,Random 102 mg/dL (74-106); Potassium 4.3 meq/L (3.5-5.1); Sodium 143 meq/L (136-145)
[2018-02-10 13:59] LABS: Alkaline Phosphatase 118 U/L (45-117); Total Protein 7.6 g/dL (6.4-8.2)
--- NOTE | 2018-02-10 14:07 | XR ---
EXAM DATE: 02/10/2018 1:35 PM EDT AGE/SEX: 67 years / Male INDICATIONS: Chest pain and short of breath today CLINICAL DATA: This is the patient's initial encounter. Patient reports that signs and symptoms have been present for 1 day and indicates a pain score of 9/10. MEDICAL/SURGICAL HISTORY: Cardiovascular disease. Gastroesophageal reflux disease. Hypertensi on. Coronary artery stent. COMPARISON: [facility] [place] SINGLE AP, 01/14/2017. . FINDINGS: A single AP view of the chest demonstrates right lower lobe airspace disease. Left lung clear. Heart borderline enlarged. The cardiomediastinal contours are unremarkable. Osseous structures are intact . CONCLUSION: Right basilar airspace disease likely pneumonia. Electronically signed by: Jeffery Gomes MD 02/10/2018 2:06 PM EDT
[2018-02-10] MEDS ORDERED: Azithromycin Inj 500 MG in Sodium Chlor 0.9% Inj 250 ML IV.SIG ONE (15:07)
[2018-02-10] MEDS ORDERED: Temazepam 15 MG Capsule PO PRN (15:39)
[2018-02-10] MEDS ORDERED: Bisacodyl 10 MG Supp RECTAL PRN (15:39)
--- NOTE | 2018-02-10 15:48 | P.HPIM ---
History of Present Illness Primary Care Physician: UNKNOWN History of Present Illness: Mr. Khalil is a 67 year old male. He comes into the hospital with the primary complaint of shortness of breath and some chest tightness. Imaging shows pneumonia. He has atrial fibrillation at baseline and with a pneumonia and this has developed into A. fib RVR. Some elevation of BNP is present this is likely related to his A. fib RVR. He denies any chest pain. No other complaints today. No nausea or vomiting. No back pain. She denies any known fevers. Review of Systems Constitutional: Denies chills, Denies fever(s), Denies night sweats Eyes: Denies blind spots, Denies blurry vision, Denies change in vision Ears, Nose, Mouth, and Throat: Denies abnormal hearing, Denies bleeding gums, Denies change in voice Cardiovascular: Denies chest pain, Denies chest pain at rest, Denies chest pain with activity Respiratory: Reports cough, Reports shortness of breath, Denies wheezing Gastrointestinal: Denies abdominal pain, Denies black, tarry stools, Denies bloating Musculoskeletal: Denies abnormal walking, Denies back pain, Denies body aches Skin/Breast: Denies rash, Denies skin pain, Denies skin ulcer Neurologic: Denies abnormal hearing, Denies abnormal movements, Denies abnormal speech, Denies abnormal walking Psychiatric: Denies abnormal sleep pattern, Denies anxiety, Denies behavioral changes [facility] - History History Provided By: Patient - Medical History Medical History: Medical History (Last Updated 02/10/18 @ 12:59 by Brainlike) CAD (coronary artery disease) HTN (hypertension) - Surgical History Surgical History: Surgical History (Last Updated 02/10/18 @ 12:59 by Brainlike) H/O heart artery stent History of cardiac cath - Tobacco History Second Hand Smoke Exposure: No Tobacco Use In Past 30 Days: No Smoking Status: Former smoker - Alcohol History How Often Do You Have a Drink Containing Alcohol: Monthly or less - Substance Use History Substance History: No History of Abuse - Travel History Recent Travel in the [place] Within the Last 8 Weeks: No Recent Travel Out of the Country Within the Last 8 Weeks: No - Immunization History Tetanus Immunization: >5 Years Hx Influenza Vaccine This Season: No Medications and Allergies Active Medications: Active Medications Azithromycin 500 mg/ Sodium (Chloride) 250 mls @ 250 mls/hr IV.SIG ONCE ONE Stop: 02/10/18 16:06 Sodium Chloride (Ns Flush) 2 ml IV.FLUSH UNSCH PRN PRN Reason: FLUSH AFTER USING IV ACCESS Last Admin: 02/10/18 13:03 Dose: 2 ml Allergies Allergy/AdvReac Type Severity Reaction Status Date / Time No Known Allergies Allergy Unverified 02/10/18 12:52 Home Medications Medication Instructions Recorded Confirmed Type apixaban [Eliquis] 5 mg PO BID 02/10/18 02/10/18 History atorvastatin 80 mg PO DAILY 02/10/18 02/10/18 History cyanocobalamin (vitamin B-12) 1,000 mcg PO DAILY 02/10/18 02/10/18 History [Vitamin B-12] famotidine 20 mg PO DAILY 02/10/18 02/10/18 History folic acid 1 mg PO DAILY 02/10/18 02/10/18 History levothyroxine 25 mcg PO DAILY 02/10/18 02/10/18 History lisinopril 20 mg PO DAILY 02/10/18 02/10/18 History metoprolol succinate 100 mg PO DAILY 02/10/18 02/10/18 History Exam Vital signs: Vital Signs 02/10/18 12:53 02/10/18 13:09 02/10/18 13:14 Temperature 98.6 F Pulse Rate 129 H 145 H 120 H Respiratory Rate 27 H 21 24 Blood Pressure 141/110 H 133/110 H 132/112 H Pulse Oximetry 98 93 L 96 02/10/18 15:00 Temperature Pulse Rate 126 H Respiratory Rate 20 Blood Pressure 155/101 H Pulse Oximetry 98 Intake & Output 02/09/18 02/10/18 02/10/18 18:59 06:59 18:59 Intake Total 500 / 500 Balance 500 / 500 Weight 90.718 kg Intake: IV 500 / 500 NS Inj 500 ML @ Wide Open IV. 500 / 500 SIG ONCE ONE Rx#:[id number] Narrative: GENERAL: NAD, A&Ox3 HEAD: Normocephalic. NECK: Supple, trachea midline. No lymphadenopathy. EYES: No scleral icterus. No injection or drainage. CARDIOVASCULAR: Tachycardic rate and irregularly irregular rhythm without murmurs, gallops, or rubs. RESPIRATORY: Breath sounds equal bilaterally. No accessory muscle use. GASTROINTESTINAL: Abdomen soft, non-tender, nondistended. MUSCULOSKELETAL: No cyanosis, or edema. SKIN: Warm and dry. NEURO: No focal neurological deficits. Results - Labs CBC & Chem 7: 02/10/18 12:50 02/10/18 12:50 Labs: Short CBC 02/10/18 Range/Units 12:50 WBC 8.6 (4.0-11.0) th/mm3 Hgb 11.6 L (13.0-17.0) gm/dL Hct 34.7 L (39.0-51.0) % Plt Count 195 (150-450) th/mm3 BMP 02/10/18 12:50 Sodium 143 Potassium 4.3 Chloride 106 Carbon Dioxide 23.6 BUN 11 Creatinine 1.14 Calcium 8.8 Cardiac Enzymes 02/10/18 Range/Units 12:50 Troponin I Less than 0.02 L (0.02-0.05) ng/mL Liver Function 02/10/18 Range/Units 12:50 Total Bilirubin 1.8 H (0.2-1.0) mg/dL AST 24 (15-37) U/L ALT 14 (12-78) U/L Alkaline Phosphatase 118 H (45-117) U/L Albumin 3.5 (3.4-5.0) g/dL - Imaging Impressions Chest X-Ray 02/10/18 12:53 CONCLUSION: Right basilar airspace disease likely pneumonia. Caprini VTE Risk Assessment Caprini VTE Risk Assessment: Moderate/High Risk (score >= 2) Caprini Risk Assessment Model: Point Value = 1 Point Value = 2 Point Value = 3 Point Value = 5 Age 41-60 Minor surgery BMI > 25 kg/m2 Swollen legs Varicose veins or History of unexplained or recurrent spontaneous Oral contraceptives or hormone replacement Sepsis (< 1 month) Serious lung disease, including pneumonia (< 1 month) Abnormal pulmonary function Acute myocardial infarction Congestive heart failure (< 1 month) History of inflammatory bowel disease Medical patient at bed rest Age 61-74 Arthroscopic surgery Major open surgery (> 45 min) Laparoscopic surgery (> 45 min) Malignancy Confined to bed (> 72 hours) Immobilizing plaster cast Central venous access Age >= 75 History of VTE Family history of VTE Factor V Leiden Prothrombin [id number] Lupus anticoagulant Anticardiolipin antibodies Elevated serum homocysteine Heparin-induced thrombocytopenia Other congenital or acquired thrombophilia Stroke (< 1 month) Elective arthroplasty Hip, pelvis, or leg fracture Acute spinal cord injury (< 1 month) Prophylaxis Regimen: Total Risk Factor Score Risk Level Prophylaxis Regimen 0-1 Low Early ambulation 2 Moderate Order ONE of the following: *Sequential Compression Device (SCD) *Heparin 5000 units SQ BID 3-4 Higher Order ONE of the following medications: *Heparin 5000 units SQ TID *Enoxaparin/Lovenox 40 mg SQ daily (WT < 150 kg, CrCl > 30 mL/min) *Enoxaparin/Lovenox 30 mg SQ daily (WT < 150 kg, CrCl > 10-29 mL/min) *Enoxaparin/Lovenox 30 mg SQ BID (WT < 150 kg, CrCl > 30 mL/min) AND/OR *Sequential Compression Device (SCD) 5 or more Highest Order ONE of the following medications: *Heparin 5000 units SQ TID (Preferred with Epidurals) *Enoxaparin/Lovenox 40 mg SQ daily (WT < 150 kg, CrCl > 30 mL/min) *Enoxaparin/Lovenox 30 mg SQ daily (WT < 150 kg, CrCl > 10-29 mL/min) *Enoxaparin/Lovenox 30 mg SQ BID (WT < 150 kg, CrCl > 30 mL/min) AND *Sequential Compression Device (SCD) Assessment and Plan - Plan 67-year-old male admitted secondary to pneumonia with A. fib RVR Community-acquired pneumonia Azithromycin Rocephin Probiotics Oxygen supplementation Monitor for improvement This condition is likely contributory to the patient's A. fib RVR Atrial fibrillation with RVR Add diltiazem p.o. Follow on telemetry Continue Eliquis Consider cardiology consult if RVR persists despite treatment Coronary artery disease Continue baseline treatments Follow cardiac enzymes Consider further cardiac work up if enzymes significantly elevate Consider cardiology consult if signs of possible ischemia are found Hyperlipidemia Continue present treatment Follow as an outpatient Hypertension Continue baseline treatment Follow blood pressures Adjust treatments as needed Hold Lisinopril, Add Diltiazem DVT prophylaxis Eliquis
[2018-02-10] MEDS ORDERED: Amiodarone Inj 150 MG in Dextrose 5% in Water Inj 97 ML IV.SIG ONE ×2 (16:59)
[2018-02-10] MEDS ORDERED: dilTIAZem 60 MG Tablet PO ONE (17:00)
--- NOTE | 2018-02-10 18:25 | CT ---
EXAM DATE: 02/10/2018 6:17 PM EDT AGE/SEX: 67 years / Male INDICATIONS: Abdominal pain, rule out dissection. CLINICAL DATA: This is the patient's initial encounter. Patient reports that signs and symptoms have been present for 2 days and indicates a pain score of 0/10. MEDICAL/SURGICAL HISTORY: Hypertension. A-fib. Coronary artery disease. CABG. RADIATION DOSE: 15.40 CTDI (mGy) COMPARISON: No prior exams available for comparison. TECHNIQUE: Volumetric scanning was performed using a multi-row detector CT scanner during bolus infu benito of 100 ml Omnipaque 350 (iohexol) nonionic water-soluble contrast as a single exam dose. The d solomon was post processed with a variety of visualization algorithms including full volume maximum inten sity projection, multi-planar sliding thin slab reformation, curved planar reformation, and surface r endering techniques. Using automated exposure control and adjustment of the mA and/or kV according t o patient size, radiation dose was kept as low as reasonably achievable to obtain optimal diagnostic quality images. DICOM format image data is available electronically for review and comparison. FINDINGS: Thoracic and abdominal portions of the aorta have normal caliber. There is no dissection. Mild aneury smal dilatation seen of the bilateral common iliac arteries, each proximally 16 mm. There is mild, pa tchy aortoiliac atherosclerosis. Heart is enlarged, especially right atrium. Mild left ventricular hypertrophy noted. Coronary artery calcification is present. Moderate right and [id number] left pleural effusions are present. There is patchy consolidatio n of the right lower lobe. Liver, spleen, pancreas, adrenal glands and kidneys are all within normal limits. There is very mild, diffuse mesenteric and retroperitoneal edema. No organized or drainable fluid. 14 mm diameter append ix with fluid in the lumen and slight wall thickening. No obstruction or other acute inflammatory ijeoma nges are seen of the gastrointestinal tract. Multiple tiny stones seen in the gallbladder. No duct stone or ductal dilatation. CONCLUSION: 1. No aneurysm or dissection of the aorta. 2. Equivocal CT findings; early or mild appendicitis possible in the proper clinical setting. 3. Cholelithiasis without perceptible associated inflammatory changes. No duct stone or ductal dilat ation. 4. Moderate right and [id number] left pleural effusions. Mild consolidation right lower lobe. 5. Enlarged heart with coronary artery calcification. Electronically signed by: Mayur Funk MD 02/10/2018 6:23 PM EDT
[2018-02-10] MEDS: dilTIAZem 60 MG Tablet PO SCH (22:03)
[2018-02-11] MEDS: Lactobacillus Acidophilus/L. Spores Tablet PO SCH ×4 (07:25→17:00)
[2018-02-11] MEDS: Senna/Docusate Sodium 8.6/50 MG Tablet PO SCH ×3 (07:26→20:34)
[2018-02-11] MEDS: Folic Acid 1 MG Tablet PO SCH (08:18)
[2018-02-11] MEDS: dilTIAZem 60 MG Tablet PO SCH (08:19)
[2018-02-11] MEDS: Famotidine 20 MG Tablet PO SCH (08:19)
--- NOTE | 2018-02-11 10:18 | P.PNIM ---
Subjective Interval history: Patient's heart rate is still variable but averages about 120 bpm. No complaints of chest pain this morning. Cardiac enzymes negative. Physical Exam Vital signs: Vital Signs 02/10/18 12:53 02/10/18 13:09 02/10/18 13:14 Temperature 98.6 F Pulse Rate 129 H 145 H 120 H Respiratory Rate 27 H 21 24 Blood Pressure 141/110 H 133/110 H 132/112 H Pulse Oximetry 98 93 L 96 02/10/18 15:00 02/10/18 16:38 02/10/18 16:54 Temperature 98.1 F Pulse Rate 126 H 126 H 145 H Respiratory Rate 20 25 H 24 Blood Pressure 155/101 H 135/92 H 131/99 H Pulse Oximetry 98 95 02/10/18 16:55 02/10/18 17:23 02/10/18 18:30 Temperature Pulse Rate 134 H 119 H 84 Respiratory Rate 18 25 H 16 Blood Pressure 131/99 H 142/88 H 140/88 Pulse Oximetry 97 98 02/10/18 22:06 02/10/18 22:29 02/11/18 02:21 Temperature Pulse Rate 107 H 68 Respiratory Rate 18 18 Blood Pressure 155/105 H 132/92 H Pulse Oximetry 96 95 02/11/18 04:40 02/11/18 05:00 02/11/18 05:03 Temperature 98.7 F Pulse Rate 107 H 107 H Respiratory Rate 23 Blood Pressure 133/90 Pulse Oximetry 97 96 02/11/18 06:27 02/11/18 07:00 02/11/18 08:00 Temperature 98.3 F Pulse Rate 80 107 H 122 H Respiratory Rate 20 Blood Pressure 123/96 H Pulse Oximetry 97 96 02/11/18 09:00 02/11/18 09:51 02/11/18 10:00 Temperature Pulse Rate 108 H 128 H Respiratory Rate Blood Pressure Pulse Oximetry 96 Intake & Output 02/10/18 02/11/18 02/11/18 18:59 06:59 18:59 Intake Total 600 / 600 250 / 250 Output Total 600 / 600 Balance 0 / 0 250 / 250 Weight 90.718 kg 100 kg Intake: IV 600 / 600 250 / 250 Cordarone Inj 450 MG In D5W Inj 250 / 250 241 ML @ 1 MG/MIN 33.33 mls/hr IV.CONT TITRATE PRN Rx#: [id number] NS Inj 500 ML @ Wide Open IV. 500 / 500 SIG ONCE ONE Rx#:[id number] Rocephin Inj 1,000 MG In NS Inj 100 / 100 100 ML @ 200 mls/hr IV.SIG ONCE ONE Rx#:[id number] Output: Urine 600 / 600 Other: Post Void Residual 3 Date of Last Bowel Movement 02/08/18 02/09/18 Weight On Admission 100 kg Narrative: GENERAL: NAD, A&Ox3 HEAD: Normocephalic. NECK: Supple, trachea midline. No lymphadenopathy. EYES: No scleral icterus. No injection or drainage. CARDIOVASCULAR: Tachycardic rate, irregularly irregular rhythm, without murmurs , gallops, or rubs. RESPIRATORY: Breath sounds equal bilaterally. No accessory muscle use. GASTROINTESTINAL: Abdomen soft, non-tender, nondistended. MUSCULOSKELETAL: No cyanosis, or edema. SKIN: Warm and dry. NEURO: No focal neurological deficits. Results - Labs CBC & Chem 7: 02/10/18 12:50 02/10/18 12:50 Laboratory Results - last 24 hr 02/10/18 02/10/18 02/10/18 12:50 12:50 12:50 WBC 8.6 RBC 3.41 L Hgb 11.6 L Hct 34.7 L MCV 101.8 H MCH 34.0 MCHC 33.4 RDW 13.9 Plt Count 195 MPV 9.1 Neut % (Auto) 72.1 H Lymph % (Auto) 19.3 Custer % (Auto) 7.9 Eos % (Auto) 0.2 Baso % (Auto) 0.5 Neut # (Auto) 6.2 Lymph # (Auto) 1.7 [place]uster # (Auto) 0.7 Eos # (Auto) 0.0 Baso # (Auto) 0.0 WBC Differential . Differential Comment Auto diff final PT 13.1 H INR 1.3 APTT 29.6 Sodium Potassium Chloride Carbon Dioxide Anion Gap BUN Creatinine Estimated GFR POC Glucose Random Glucose Lactic Acid Calcium Total Bilirubin AST ALT Alkaline Phosphatase Troponin I Less than 0.02 L B-Natriuretic Peptide Total Protein Albumin 02/10/18 02/10/18 02/10/18 12:50 12:50 15:30 WBC RBC Hgb Hct MCV MCH MCHC RDW Plt Count MPV Neut % (Auto) Lymph % (Auto) [place] % (Auto) Eos % (Auto) Baso % (Auto) Neut # (Auto) Lymph # (Auto) [place] # (Auto) Eos # (Auto) Baso # (Auto) WBC Differential Differential Comment PT INR APTT Sodium 143 Potassium 4.3 Chloride 106 Carbon Dioxide 23.6 Anion Gap 13 BUN 11 Creatinine 1.14 Estimated GFR 64 L POC Glucose Random Glucose 102 Lactic Acid 2.0 Calcium 8.8 Total Bilirubin 1.8 H AST 24 ALT 14 Alkaline Phosphatase 118 H Troponin I B-Natriuretic Peptide 529 H Total Protein 7.6 Albumin 3.5 02/10/18 02/10/18 02/11/18 17:09 20:10 06:55 WBC RBC Hgb Hct MCV MCH MCHC RDW Plt Count MPV Neut % (Auto) Lymph % (Auto) [place] % (Auto) Eos % (Auto) Baso % (Auto) Neut # (Auto) Lymph # (Auto) [place] # (Auto) Eos # (Auto) Baso # (Auto) WBC Differential Differential Comment PT INR APTT Sodium Potassium Chloride Carbon Dioxide Anion Gap BUN Creatinine Estimated GFR POC Glucose 156 H Random Glucose Lactic Acid Calcium Total Bilirubin AST ALT Alkaline Phosphatase Troponin I 0.02 0.03 B-Natriuretic Peptide Total Protein Albumin - Imaging Impressions Chest X-Ray 02/10/18 12:53 CONCLUSION: Right basilar airspace disease likely pneumonia. Thoracic Aorta CT 02/10/18 16:56 CONCLUSION: 1. No aneurysm or dissection of the aorta. 2. Equivocal CT findings; early or mild appendicitis possible in the proper clinical setting. 3. Cholelithiasis without perceptible associated inflammatory changes. No duct stone or ductal dilatation. 4. Moderate right and [id number] left pleural effusions. Mild consolidation right lower lobe. 5. Enlarged heart with coronary artery calcification. Assessment and Plan - Plan 67-year-old male admitted secondary to pneumonia with A. fib RVR Community-acquired pneumonia Azithromycin Rocephin Probiotics Oxygen supplementation Monitor for improvement This condition is likely contributory to the patient's A. fib RVR Atrial fibrillation with RVR No resolution thus far Continue diltiazem p.o. Continue IV amiodarone drip Follow on telemetry Continue Eliquis Cardiology following Coronary artery disease Continue baseline treatments Cardiac enzymes within normal limits through time Hyperlipidemia Continue present treatment Follow as an outpatient Hypertension Continue baseline treatment Follow blood pressures Adjust treatments as needed Hold Lisinopril, Add Diltiazem DVT prophylaxis Eliquis
[2018-02-11] MEDS ORDERED: dilTIAZem Inj 125 MG in Sodium Chlor 0.9% Inj 100 ML IV.CONT PRN (10:20)
[2018-02-11] MEDS ORDERED: VERAPAMIL IV.PUSH PRN (12:00)
[2018-02-11] MEDS ORDERED: SODIUM CHLOR 0.9% IV.PUSH PRN (12:00)
--- NOTE | 2018-02-11 13:36 | P.CONCA ---
<Mikala Adan N - Last Filed: 02/11/18 15:16> History of Present Illness Service: Cardiology Consult date: 02/11/18 Requesting Physician: Sukhi Hobson Reason for Consult: A. fib with RVR Primary Care Provider: UNKNOWN Chief Complaint: Shortness of breath and chest tightness over the last 3-4 days History of Present Illness: This is a very pleasant 67-year-old male who presented to the [place] emergency department via EMS with complaints of shortness of breath and chest tightness over the last 3-4 days. He has a history of atrial fibrillation and is on Eliquis, coronary artery disease, hypertension, hyperlipidemia, cardiac catheterization and coronary artery stent placement. He is in atrial fibrillation low 100s, on amiodarone drip at 0.5 mg an hour and Cardizem 60 mg p.o 4 times daily. He complains of mild shortness of breath with exertion and mild chest pressure. He denies any dizziness, syncope or edema. Review of Systems General: Patient denies fevers, chills, and recent travel. HEENT: Patient denies headache, sore throat, difficulty swallowing. Cardiovascular: Patient complains of chest tightness over the last 3-4 days. No syncope or dizziness. Respiratory: Complains of shortness of breath over the last 3 or 4 days which has increased in severity. Denies inspirational chest discomfort. Denies coughing wheezing or hemoptysis. GI: Patient denies nausea, vomiting, diarrhea, abdominal pain, bloody stools. Musculoskeletal: Patient denies joint pain or edema. Denies calf pain or edema. Neurovascular: Patient denies numbness, tingling, weakness in extremities. Denies headache. Endocrine: Denies polyuria and polydipsia. Hematologic: Denies easy bruising. Skin: Denies rash or itching. PMFSH - History History Provided By: Patient - Medical History Medical History: Medical History (Last Updated 02/10/18 @ 12:59 by [email or web address]) CAD (coronary artery disease) HTN (hypertension) - Surgical History Surgical History: Surgical History (Last Updated 02/10/18 @ 12:59 by [email or web address]) H/O heart artery stent History of cardiac cath - Tobacco History Second Hand Smoke Exposure: No Tobacco Use In Past 30 Days: No Smoking Status: Former smoker Tobacco Type: Cigarettes - Alcohol History How Often Do You Have a Drink Containing Alcohol: Never - Substance Use History Substance History: No History of Abuse - Travel History Recent Travel in the [place] Within the Last 8 Weeks: No Recent Travel Out of the Country Within the Last 8 Weeks: No - Immunization History Tetanus Immunization: >5 Years Hx Influenza Vaccine This Season: No Medications and Allergies Allergies Allergy/AdvReac Type Severity Reaction Status Date / Time No Known Allergies Allergy Unverified 02/10/18 12:52 Home Medications Medication Instructions Recorded Confirmed Type apixaban [Eliquis] 5 mg PO BID 02/10/18 02/10/18 History atorvastatin 80 mg PO DAILY 02/10/18 02/10/18 History cyanocobalamin (vitamin B-12) 1,000 mcg PO DAILY 02/10/18 02/10/18 History [Vitamin B-12] famotidine 20 mg PO DAILY 02/10/18 02/10/18 History folic acid 1 mg PO DAILY 02/10/18 02/10/18 History levothyroxine 25 mcg PO DAILY 02/10/18 02/10/18 History lisinopril 20 mg PO DAILY 02/10/18 02/10/18 History metoprolol succinate 100 mg PO DAILY 02/10/18 02/10/18 History Active Medications: Active Medications Al Hydroxide/Mg Hydroxide (Milk Of [place] Liq) 30 ml PO Q12H PRN PRN Reason: Mild Constipation Apixaban (Eliquis) 5 mg PO BID [facility] Last Admin: 02/11/18 08:19 Dose: 5 mg Atorvastatin Calcium (Lipitor) 80 mg PO DAILY [facility] Last Admin: 02/11/18 08:19 Dose: 80 mg Bisacodyl (Dulcolax Supp) 10 mg RECTAL DAILY PRN PRN Reason: SEVERE CONSITIPATION Cyanocobalamin (Vitamin B12) 1,000 mcg PO DAILY [facility] Last Admin: 02/11/18 08:18 Dose: 1,000 mcg Diltiazem HCl (Cardizem) 90 mg PO QID [facility] Last Admin: 02/11/18 12:16 Dose: 90 mg Famotidine (Pepcid) 20 mg PO DAILY [facility] Last Admin: 02/11/18 08:19 Dose: 20 mg Folic Acid (Folic Acid) 1 mg PO DAILY [facility] Last Admin: 02/11/18 08:18 Dose: 1 mg Azithromycin 500 mg/ Sodium (Chloride) 250 mls @ 250 mls/hr IV.SIG Q24H [facility] Ceftriaxone Sodium 1,000 mg/ (Sodium Chloride) 100 mls @ 200 mls/hr IV.SIG Q24H [facility] Lactobacillus Acidophilus (Lactinex) 1 tab PO TID [facility] Last Admin: 02/11/18 12:17 Dose: 1 tab Lactulose (Lactulose Liq) 30 ml PO DAILY PRN PRN Reason: SEVERE CONSITIPATION Levothyroxine Sodium (Synthroid) 25 mcg PO DAILY@0600 [facility] Last Admin: 02/11/18 06:33 Dose: 25 mcg Metoprolol Succinate (Toprol Xl) 100 mg PO DAILY [facility] Last Admin: 02/11/18 08:18 Dose: 100 mg Ondansetron HCl (Zofran Inj) 4 mg IV.PUSH Q6H PRN PRN Reason: NAUSEA OR VOMITING Last Admin: 02/10/18 17:19 Dose: 4 mg Senna/Docusate Sodium (Janey-Colace) 1 tab PO BID [facility] Last Admin: 02/11/18 08:18 Dose: 1 tab Sennosides (Senokot) 17.2 mg PO Q12H PRN PRN Reason: Moderate Constipation Sodium Chloride (Ns Flush) 2 ml IV.FLUSH PRN PRN PRN Reason: FLUSH AFTER USING IV ACCESS Sodium Chloride (Ns Flush) 2 ml IV.FLUSH BID [facility] Last Admin: 02/11/18 08:19 Dose: 2 ml Temazepam (Restoril) 15 mg PO HS PRN PRN Reason: INSOMNIA Exam Vital signs: Vital Signs 02/10/18 13:14 02/10/18 15:00 02/10/18 16:38 Temperature 98.1 F Pulse Rate 120 H 126 H 126 H Respiratory Rate 24 20 25 H Blood Pressure 132/112 H 155/101 H 135/92 H Pulse Oximetry 96 98 02/10/18 16:54 02/10/18 16:55 02/10/18 17:23 Temperature Pulse Rate 145 H 134 H 119 H Respiratory Rate 24 18 25 H Blood Pressure 131/99 H 131/99 H 142/88 H Pulse Oximetry 95 97 02/10/18 18:30 02/10/18 22:06 02/10/18 22:29 Temperature Pulse Rate 84 107 H Respiratory Rate 16 18 Blood Pressure 140/88 155/105 H Pulse Oximetry 98 96 02/11/18 02:21 02/11/18 04:40 02/11/18 05:00 Temperature 98.7 F Pulse Rate 68 107 H 107 H Respiratory Rate 18 23 Blood Pressure 132/92 H 133/90 Pulse Oximetry 95 97 02/11/18 05:03 02/11/18 06:27 02/11/18 07:00 Temperature 98.3 F Pulse Rate 80 107 H Respiratory Rate 20 Blood Pressure 123/96 H Pulse Oximetry 96 97 02/11/18 08:00 02/11/18 09:00 02/11/18 09:51 Temperature Pulse Rate 122 H 108 H Respiratory Rate Blood Pressure Pulse Oximetry 96 96 02/11/18 10:00 02/11/18 10:30 02/11/18 11:00 Temperature 98.6 F Pulse Rate 128 H 108 H 85 Respiratory Rate 20 Blood Pressure 129/94 H Pulse Oximetry 94 L 02/11/18 12:00 Temperature Pulse Rate 87 Respiratory Rate Blood Pressure Pulse Oximetry Intake & Output 02/10/18 02/11/18 02/11/18 18:59 06:59 18:59 Intake Total 600 / 600 300 / 300 Output Total 600 / 600 Balance 0 / 0 300 / 300 Weight 90.718 kg 100 kg Intake: IV 600 / 600 300 / 300 Cordarone Inj 450 MG In D5W Inj 300 / 300 241 ML @ 1 MG/MIN 33.33 mls/hr IV.CONT TITRATE PRN Rx#: [id number] NS Inj 500 ML @ Wide Open IV. 500 / 500 SIG ONCE ONE Rx#:[id number] Rocephin Inj 1,000 MG In NS Inj 100 / 100 100 ML @ 200 mls/hr IV.SIG ONCE ONE Rx#:[id number] Output: Urine 600 / 600 Other: Post Void Residual 3 Date of Last Bowel Movement 02/08/18 02/11/18 Weight On Admission 100 kg Narrative: GENERAL: This is a well-nourished, well-developed patient, in no apparent distress. Patient speaks in clear complete sentences. Patient is pleasant. HEENT: Head is atraumatic and normocephalic. Neck is supple without lymphadenopathy and trachea is midline. No JVD or carotid bruits. CARDIOVASCULAR: Atrial fibrillation without murmurs, gallops, or rubs. RESPIRATORY: Clear to auscultation. Breath sounds equal bilaterally. No wheezes , rales, or rhonchi. Chest wall is nontender. No use of accessory muscles. GASTROINTESTINAL: Abdomen is nontender, nondistended. Abdomen soft. No obvious pulsatile mass or bruit. No CVA tenderness. Strong femoral pulses bilaterally. Normal bowel sounds in all quadrants. MUSCULOSKELETAL: Patient is moving upper and lower extremities freely. No calf tenderness or edema, no Homans sign. Strong pulses in upper and lower extremities. NEUROLOGICAL: Patient is alert and oriented. Cranial nerves 2-12 are grossly intact. No focal deficits and speech is clear. SKIN: No rash and turgor is normal. Results 02/10/18 12:50 02/10/18 12:50 Cardiac Enzymes 02/10/18 02/10/18 02/10/18 Range/Units 12:50 12:50 12:50 AST 24 (15-37) U/L Troponin I Less than 0.02 L (0.02-0.05) ng/mL B-Natriuretic Peptide 529 H (0-100) pg/mL 02/10/18 02/11/18 Range/Units 20:10 06:55 AST (15-37) U/L Troponin I 0.02 0.03 (0.02-0.05) ng/mL B-Natriuretic Peptide (0-100) pg/mL Coagulation 02/10/18 02/10/18 Range/Units 12:50 12:50 PT 13.1 H (9.8-11.6) sec APTT 29.6 (24.3-30.1) sec B-Natriuretic Peptide 529 H (0-100) pg/mL CBC 02/10/18 Range/Units 12:50 WBC 8.6 (4.0-11.0) th/mm3 RBC 3.41 L (4.50-5.90) mil/mm3 Hgb 11.6 L (13.0-17.0) gm/dL Hct 34.7 L (39.0-51.0) % Plt Count 195 (150-450) th/mm3 Neut # (Auto) 6.2 (1.8-7.7) th/mm3 Lymph # (Auto) 1.7 (1.0-4.8) th/mm3 Early # (Auto) 0.7 (0.0-0.9) th/mm3 Eos # (Auto) 0.0 (0.0-0.4) th/mm3 Baso # (Auto) 0.0 (0.0-0.2) th/mm3 Comprehensive Metabolic Panel 02/10/18 Range/Units 12:50 Sodium 143 (136-145) meq/L Potassium 4.3 (3.5-5.1) meq/L Chloride 106 (98-107) meq/L Carbon Dioxide 23.6 (21.0-32.0) meq/L BUN 11 (7-18) mg/dL Creatinine 1.14 (0.60-1.30) mg/dL Calcium 8.8 (8.5-10.1) mg/dL AST 24 (15-37) U/L ALT 14 (12-78) U/L Alkaline Phosphatase 118 H (45-117) U/L Total Protein 7.6 (6.4-8.2) g/dL Albumin 3.5 (3.4-5.0) g/dL Intake and Output 02/10/18 02/11/18 02/11/18 22:59 06:59 14:59 Intake Total 600 / 600 300 / 300 Output Total 600 / 600 Balance 0 / 0 300 / 300 Intake: IV 600 / 600 300 / 300 Cordarone Inj 450 MG In D5W Inj 300 / 300 241 ML @ 1 MG/MIN 33.33 mls/hr IV.CONT TITRATE PRN Rx#: [id number] NS Inj 500 ML @ Wide Open IV. 500 / 500 SIG ONCE ONE Rx#:[id number] Rocephin Inj 1,000 MG In NS Inj 100 / 100 100 ML @ 200 mls/hr IV.SIG ONCE ONE Rx#:[id number] Output: Urine 600 / 600 Other: Post Void Residual 3 Date of Last Bowel Movement 02/08/18 02/11/18 Weight 100 kg Weight On Admission 100 kg Assessment and Plan - Assessment (1) Atrial fibrillation with RVR Code(s): I48.91 - Unspecified atrial fibrillation Status: Acute (2) Hypertension Code(s): I10 - Essential (primary) hypertension Status: Acute (3) Community acquired pneumonia Code(s): J18.9 - Pneumonia, unspecified organism Status: Acute (4) Coronary artery disease Code(s): I25.10 - Atherosclerotic heart disease of [place] coronary artery without angina pectoris Status: Acute (5) Hyperlipidemia Code(s): E78.5 - Hyperlipidemia, unspecified Status: Acute - Plan Patient has chronic atrial fibrillation and takes Eliquis at home for anticoagulation, continue Eliquis. Patient currently on Cardizem 60 mg p.o. 4 times daily change to Cardizem 90 mg p.o. 4 times daily, will adjust p.o. Cardizem as needed for rate control. DC amiodarone drip. Continue current cardiac treatment plan and adjust as needed. Will follow patient during hospitalization and schedule follow-up in office after discharge. 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 The patient was seen and evaluated by Dr. Simons who participated in care, management and decision-making. <Aurora Simons - Last Filed: 02/11/18 15:39> History of Present Illness Primary Care Provider: UNKNOWN [facility] - Medical History Medical History: Medical History (Last Updated 02/10/18 @ 12:59 by [email or web address]) CAD (coronary artery disease) HTN (hypertension) - Surgical History Surgical History: Surgical History (Last Updated 02/10/18 @ 12:59 by [email or web address]) H/O heart artery stent History of cardiac cath Medications and Allergies Active Medications: Active Medications Al Hydroxide/Mg Hydroxide (Milk Of Eleanor Johnson) 30 ml PO Q12H PRN PRN Reason: Mild Constipation Apixaban (Eliquis) 5 mg PO BID [facility] Last Admin: 02/11/18 08:19 Dose: 5 mg Atorvastatin Calcium (Lipitor) 80 mg PO DAILY [facility] Last Admin: 02/11/18 08:19 Dose: 80 mg Bisacodyl (Dulcolax Supp) 10 mg RECTAL DAILY PRN PRN Reason: SEVERE CONSITIPATION Cyanocobalamin (Vitamin B12) 1,000 mcg PO DAILY [facility] Last Admin: 02/11/18 08:18 Dose: 1,000 mcg Diltiazem HCl (Cardizem) 90 mg PO QID [facility] Last Admin: 02/11/18 12:16 Dose: 90 mg Famotidine (Pepcid) 20 mg PO DAILY [facility] Last Admin: 02/11/18 08:19 Dose: 20 mg Folic Acid (Folic Acid) 1 mg PO DAILY [facility] Last Admin: 02/11/18 08:18 Dose: 1 mg Azithromycin 500 mg/ Sodium (Chloride) 250 mls @ 250 mls/hr IV.SIG Q24H [facility] Ceftriaxone Sodium 1,000 mg/ (Sodium Chloride) 100 mls @ 200 mls/hr IV.SIG Q24H [facility] Last Infusion: 02/11/18 14:40 Dose: Infused Lactobacillus Acidophilus (Lactinex) 1 tab PO TID [facility] Last Admin: 02/11/18 12:17 Dose: 1 tab Lactulose (Lactulose Liq) 30 ml PO DAILY PRN PRN Reason: SEVERE CONSITIPATION Levothyroxine Sodium (Synthroid) 25 mcg PO DAILY@0600 [facility] Last Admin: 02/11/18 06:33 Dose: 25 mcg Metoprolol Succinate (Toprol Xl) 100 mg PO DAILY [facility] Last Admin: 02/11/18 08:18 Dose: 100 mg Ondansetron HCl (Zofran Inj) 4 mg IV.PUSH Q6H PRN PRN Reason: NAUSEA OR VOMITING Last Admin: 02/10/18 17:19 Dose: 4 mg Senna/Docusate Sodium (Janey-Colace) 1 tab PO BID [facility] Last Admin: 02/11/18 08:18 Dose: 1 tab Sennosides (Senokot) 17.2 mg PO Q12H PRN PRN Reason: Moderate Constipation Sodium Chloride (Ns Flush) 2 ml IV.FLUSH PRN PRN PRN Reason: FLUSH AFTER USING IV ACCESS Sodium Chloride (Ns Flush) 2 ml IV.FLUSH BID [facility] Last Admin: 02/11/18 08:19 Dose: 2 ml Temazepam (Restoril) 15 mg PO HS PRN PRN Reason: INSOMNIA Exam Vital signs: Vital Signs 02/10/18 16:38 02/10/18 16:54 02/10/18 16:55 Temperature 98.1 F Pulse Rate 126 H 145 H 134 H Respiratory Rate 25 H 24 18 Blood Pressure 135/92 H 131/99 H 131/99 H Pulse Oximetry 95 02/10/18 17:23 02/10/18 18:30 02/10/18 22:06 Temperature Pulse Rate 119 H 84 107 H Respiratory Rate 25 H 16 18 Blood Pressure 142/88 H 140/88 155/105 H Pulse Oximetry 97 98 02/10/18 22:29 02/11/18 02:21 02/11/18 04:40 Temperature 98.7 F Pulse Rate 68 107 H Respiratory Rate 18 23 Blood Pressure 132/92 H 133/90 Pulse Oximetry 96 95 97 02/11/18 05:00 02/11/18 05:03 02/11/18 06:27 Temperature Pulse Rate 107 H 80 Respiratory Rate Blood Pressure Pulse Oximetry 96 02/11/18 07:00 02/11/18 08:00 02/11/18 09:00 Temperature 98.3 F Pulse Rate 107 H 122 H 108 H Respiratory Rate 20 Blood Pressure 123/96 H Pulse Oximetry 97 96 02/11/18 09:51 02/11/18 10:00 02/11/18 10:30 Temperature 98.6 F Pulse Rate 128 H 108 H Respiratory Rate 20 Blood Pressure 129/94 H Pulse Oximetry 96 94 L 02/11/18 11:00 02/11/18 12:00 02/11/18 13:00 Temperature Pulse Rate 85 87 89 Respiratory Rate Blood Pressure Pulse Oximetry 02/11/18 14:00 02/11/18 15:00 Temperature 98.1 F Pulse Rate 72 89 Respiratory Rate 20 Blood Pressure 110/76 Pulse Oximetry 94 L Intake & Output 02/10/18 02/11/18 02/11/18 18:59 06:59 18:59 Intake Total 600 / 600 400 / 400 Output Total 600 / 600 Balance 0 / 0 400 / 400 Weight 200 lb 220 lb 7.396 oz Intake: IV 600 / 600 400 / 400 Cordarone Inj 450 MG In D5W Inj 300 / 300 241 ML @ 1 MG/MIN 33.33 mls/hr IV.CONT TITRATE PRN Rx#: [id number] NS Inj 500 ML @ Wide Open IV. 500 / 500 SIG ONCE ONE Rx#:[id number] Rocephin Inj 1,000 MG In NS Inj 100 / 100 100 / 100 100 ML @ 200 mls/hr IV.SIG Q24H [facility] Rx#:[id number] Output: Urine 600 / 600 Other: Post Void Residual 3 Date of Last Bowel Movement 02/08/18 02/11/18 Weight On Admission 220 lb 7.396 oz Results 02/10/18 12:50 02/10/18 12:50 Cardiac Enzymes 02/10/18 02/11/18 Range/Units 20:10 06:55 Troponin I 0.02 0.03 (0.02-0.05) ng/mL Intake and Output 02/11/18 02/11/18 02/11/18 06:59 14:59 22:59 Intake Total 400 / 400 Balance 400 / 400 Intake: IV 400 / 400 Cordarone Inj 450 MG In D5W Inj 300 / 300 241 ML @ 1 MG/MIN 33.33 mls/hr IV.CONT TITRATE PRN Rx#: [id number] Rocephin Inj 1,000 MG In NS Inj 100 / 100 100 ML @ 200 mls/hr IV.SIG Q24H [facility] Rx#:[id number] Other: Date of Last Bowel Movement 02/08/18 02/11/18 02/11/18 Weight 220 lb 7.396 oz Weight On Admission 220 lb 7.396 oz Assessment and Plan - Assessment (1) Atrial fibrillation with RVR Code(s): I48.91 - Unspecified atrial fibrillation Status: Acute (2) Hypertension Code(s): I10 - Essential (primary) hypertension Status: Acute (3) Community acquired pneumonia Code(s): J18.9 - Pneumonia, unspecified organism Status: Acute (4) Coronary artery disease Code(s): I25.10 - Atherosclerotic heart disease of [place] coronary artery without angina pectoris Status: Acute (5) Hyperlipidemia Code(s): E78.5 - Hyperlipidemia, unspecified Status: Acute - Attending Attestation Patient seen and examined. I reviewed and agree with the evaluation and plan as presented. HR now better controlled with increased dose of PO diltiazem. No recent angina, cardiac enzymes unremarkable. Continue and titrate aggressive risk factor modification. Obtain records from his aluminum polisher in [place]. Will schedule followup in our office after discharge.
[2018-02-11] MEDS: Azithromycin Inj 500 MG in Sodium Chlor 0.9% Inj 250 ML IV.SIG SCH (15:51)
--- NOTE | 2018-02-11 22:43 | ECG ---
Date Performed: 02/10/2018 Time Performed: 12:53:20 PTAGE: 67 years EKG: ATRIAL FIBRILLATION WITH RAPID VENTRICULAR RESPONSE MARKED LEFT AXIS DEVIATION NONSPECIFIC ST & T-WAVE ABNORMALITY ABNORMAL ECG PREVIOUS TRACING : 01/14/2017 19.07 Compared to previous tracing, RVR TO AFIB IS NEW DOCTOR: Sami Burns Interpretating Date/Time 02/11/2018 22:42:09
[2018-02-11] MEDS ORDERED: Atropine Inj 1 MG/10 ML Syringe ONE (23:09)
[2018-02-12 04:48] LABS: Baso % (Auto) 0.4 % (0.0-2.0); Eos # (Auto) 0.1 th/mm3 (0.0-0.4); Eos % (Auto) 1.3 % (0.0-4.0); Hematocrit 30.2 % (39.0-51.0); Hemoglobin 10.5 gm/dL (13.0-17.0); Lymph % (Auto) 25.4 % (9.0-44.0); Mean Corpuscular HGB Conc 34.7 % (32.0-36.0); Mean Corpuscular Hemoglobin 34.6 pg (27.0-34.0); Mean Corpuscular Volume 99.7 fL (80.0-100.0); Mean Platelet Volume 9.1 fL (7.0-11.0); Mono # (Auto) 0.7 th/mm3 (0.0-0.9); Mono % (Auto) 8.7 % (0.0-8.0); Neut # (Auto) 5.2 th/mm3 (1.8-7.7); Neut % (Auto) 64.2 % (16.0-70.0); Platelet Count 174 th/mm3 (150-450); Red Blood Count 3.03 mil/mm3 (4.50-5.90); Red Cell Distribution Width 13.7 % (11.6-17.2)
[2018-02-12 05:15] LABS: Albumin 3.1 g/dL (3.4-5.0); Anion Gap 9 meq/L (5-15); Aspartate Aminotransferase 17 U/L (15-37); Blood Urea Nitrogen 12 mg/dL (7-18); Calcium 8.7 mg/dL (8.5-10.1); Carbon Dioxide 27.4 meq/L (21.0-32.0); Chloride 104 meq/L (98-107); Glomerular Filtration Rate 72 mL/min (>89); Glucose,Random 86 mg/dL (74-106); Potassium 3.7 meq/L (3.5-5.1); Sodium 140 meq/L (136-145)
[2018-02-12 05:17] LABS: Alanine Aminotransferase 11 U/L (12-78)
[2018-02-12 05:18] LABS: Alkaline Phosphatase 94 U/L (45-117); Total Protein 6.7 g/dL (6.4-8.2)
[2018-02-12] MEDS: Famotidine 20 MG Tablet PO SCH (08:21)
[2018-02-12] MEDS: Lactobacillus Acidophilus/L. Spores Tablet PO SCH ×3 (08:21→17:30)
[2018-02-12] MEDS: Senna/Docusate Sodium 8.6/50 MG Tablet PO SCH ×2 (08:21→20:10)
[2018-02-12] MEDS: Folic Acid 1 MG Tablet PO SCH (08:22)
--- NOTE | 2018-02-12 10:19 | P.PNCA ---
<Mikala Adan N - Last Filed: 02/12/18 10:12> Subjective Interval history: Patient denies any chest pain, pressure, palpitations, dizziness or shortness of breath. Patient does complain of lower abdominal pain, feels like gas pain. Physical Exam Vital signs: Vital Signs 02/11/18 10:30 02/11/18 11:00 02/11/18 12:00 Temperature 98.6 F Pulse Rate 108 H 85 87 Respiratory Rate 20 Blood Pressure 129/94 H Pulse Oximetry 94 L 02/11/18 13:00 02/11/18 14:00 02/11/18 15:00 Temperature 98.1 F Pulse Rate 89 72 89 Respiratory Rate 20 Blood Pressure 110/76 Pulse Oximetry 94 L 02/11/18 16:00 02/11/18 17:00 02/11/18 18:00 Temperature Pulse Rate 80 70 87 Respiratory Rate Blood Pressure Pulse Oximetry 02/11/18 19:15 02/11/18 20:00 02/11/18 21:28 Temperature 98.2 F Pulse Rate 100 H 80 65 Respiratory Rate 19 Blood Pressure 124/86 Pulse Oximetry 95 95 02/11/18 22:22 02/11/18 23:10 02/12/18 00:15 Temperature 98.5 F Pulse Rate 64 59 L 58 L Respiratory Rate 20 Blood Pressure 107/72 Pulse Oximetry 92 L 02/12/18 01:30 02/12/18 02:00 02/12/18 03:20 Temperature 98.3 F Pulse Rate 59 L 68 65 Respiratory Rate 18 Blood Pressure 115/76 Pulse Oximetry 95 02/12/18 04:14 02/12/18 05:37 02/12/18 06:09 Temperature Pulse Rate 62 69 77 Respiratory Rate Blood Pressure Pulse Oximetry 02/12/18 07:00 02/12/18 08:00 Temperature 98.1 F Pulse Rate 67 62 Respiratory Rate 20 Blood Pressure 116/77 Pulse Oximetry 92 L 92 L Intake & Output 02/11/18 02/12/18 02/12/18 18:59 06:59 18:59 Intake Total 2090 / 2090 480 / 480 Output Total 1100 / 1100 150 / 150 Balance 990 / 990 330 / 330 Weight 100.5 kg Intake: IV 650 / 650 Cordarone Inj 450 MG In D5W Inj 300 / 300 241 ML @ 1 MG/MIN 33.33 mls/hr IV.CONT TITRATE PRN Rx#: [id number] Azithromycin Inj 500 MG In NS 250 / 250 Inj 250 ML @ 250 mls/hr IV.SIG Q24H ANTONIO Rx#:[id number] Rocephin Inj 1,000 MG In NS Inj 100 / 100 100 ML @ 200 mls/hr IV.SIG Q24H ANTONIO Rx#:[id number] Oral 1440 / 1440 480 / 480 Output: Urine 1100 / 1100 150 / 150 Other: # Voids 1 2 Date of Last Bowel Movement 02/10/18 02/11/18 # Bowel Movements 0 Narrative: GENERAL: This is a well-nourished, well-developed patient, in no apparent distress. Patient speaks in clear complete sentences. Patient is pleasant. HEENT: Head is atraumatic and normocephalic. Neck is supple without lymphadenopathy and trachea is midline. No JVD or carotid bruits. CARDIOVASCULAR: Atrial fib controlled rate without murmurs, gallops, or rubs. RESPIRATORY: Clear to auscultation. Breath sounds equal bilaterally. No wheezes , rales, or rhonchi. Chest wall is nontender. No use of accessory muscles. GASTROINTESTINAL: Abdomen is nontender, nondistended. Abdomen soft. No obvious pulsatile mass or bruit. No CVA tenderness. Strong femoral pulses bilaterally. Normal bowel sounds in all quadrants. MUSCULOSKELETAL: Patient is moving upper and lower extremities freely. No calf tenderness or edema, no Homans sign. Strong pulses in upper and lower extremities. NEUROLOGICAL: Patient is alert and oriented. Cranial nerves 2-12 are grossly intact. No focal deficits and speech is clear. SKIN: No rash and turgor is normal. Assessment and Plan - Assessment (1) Atrial fibrillation with RVR Code(s): I48.91 - Unspecified atrial fibrillation Status: Acute (2) Hypertension Code(s): I10 - Essential (primary) hypertension Status: Acute (3) Community acquired pneumonia Code(s): J18.9 - Pneumonia, unspecified organism Status: Acute (4) Coronary artery disease Code(s): I25.10 - Atherosclerotic heart disease of [place] coronary artery without angina pectoris Status: Acute (5) Hyperlipidemia Code(s): E78.5 - Hyperlipidemia, unspecified Status: Acute - Plan Atrial fib controlled rate on telemetry. Will continue with Cardizem 90 mg p.o. 4 times daily for rate control. Patient complained of lower abdominal pain which felt like gas pain due to constipation, patient was started on a stool softener. Continue current cardiac treatment plan and adjust as needed. Will follow patient during hospitalization and schedule follow-up in office after discharge. 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 The patient was seen and evaluated by Dr. Simons who participated in care, management and decision-making. <Aurora Simons - Last Filed: 02/12/18 14:36> Physical Exam Vital signs: Vital Signs 02/11/18 15:00 02/11/18 16:00 02/11/18 17:00 Temperature 98.1 F Pulse Rate 89 80 70 Respiratory Rate 20 Blood Pressure 110/76 Pulse Oximetry 94 L 02/11/18 18:00 02/11/18 19:15 02/11/18 20:00 Temperature 98.2 F Pulse Rate 87 100 H 80 Respiratory Rate 19 Blood Pressure 124/86 Pulse Oximetry 95 95 02/11/18 21:28 02/11/18 22:22 02/11/18 23:10 Temperature 98.5 F Pulse Rate 65 64 59 L Respiratory Rate 20 Blood Pressure 107/72 Pulse Oximetry 92 L 02/12/18 00:15 02/12/18 01:30 02/12/18 02:00 Temperature Pulse Rate 58 L 59 L 68 Respiratory Rate Blood Pressure Pulse Oximetry 02/12/18 03:20 02/12/18 04:14 02/12/18 05:37 Temperature 98.3 F Pulse Rate 65 62 69 Respiratory Rate 18 Blood Pressure 115/76 Pulse Oximetry 95 02/12/18 06:09 02/12/18 07:00 02/12/18 08:00 Temperature 98.1 F Pulse Rate 77 67 62 Respiratory Rate 20 Blood Pressure 116/77 Pulse Oximetry 92 L 92 L 02/12/18 09:00 02/12/18 10:00 02/12/18 10:25 Temperature Pulse Rate 69 77 Respiratory Rate Blood Pressure Pulse Oximetry 94 L 02/12/18 11:00 02/12/18 12:00 02/12/18 13:00 Temperature 98.5 F Pulse Rate 79 76 79 Respiratory Rate 20 Blood Pressure 104/70 Pulse Oximetry 95 Intake & Output 02/11/18 02/12/18 02/12/18 18:59 06:59 18:59 Intake Total 2090 / 2090 480 / 480 Output Total 1100 / 1100 150 / 150 Balance 990 / 990 330 / 330 Weight 221 lb 9.033 oz Intake: IV 650 / 650 Cordarone Inj 450 MG In D5W Inj 300 / 300 241 ML @ 1 MG/MIN 33.33 mls/hr IV.CONT TITRATE PRN Rx#: [id number] Azithromycin Inj 500 MG In NS 250 / 250 Inj 250 ML @ 250 mls/hr IV.SIG Q24H ANTONIO Rx#:[id number] Rocephin Inj 1,000 MG In NS Inj 100 / 100 100 ML @ 200 mls/hr IV.SIG Q24H ANTONIO Rx#:[id number] Oral 1440 / 1440 480 / 480 Output: Urine 1100 / 1100 150 / 150 Other: # Voids 1 2 Date of Last Bowel Movement 02/10/18 02/11/18 # Bowel Movements 0 Assessment and Plan - Assessment (1) Atrial fibrillation with RVR Code(s): I48.91 - Unspecified atrial fibrillation Status: Acute (2) Hypertension Code(s): I10 - Essential (primary) hypertension Status: Acute (3) Community acquired pneumonia Code(s): J18.9 - Pneumonia, unspecified organism Status: Acute (4) Coronary artery disease Code(s): I25.10 - Atherosclerotic heart disease of [place] coronary artery without angina pectoris Status: Acute (5) Hyperlipidemia Code(s): E78.5 - Hyperlipidemia, unspecified Status: Acute - Attending Attestation Patient seen and examined. I reviewed and agree with the evaluation and plan as presented. Continue rate control and anticoagulation. Increase activity. Will schedule outpt f/u in our office after discharge.
--- NOTE | 2018-02-12 10:47 | P.PNIM ---
Subjective Interval history: Improvements are seen in heart rate. Patient still complains of abdominal fullness. No other complaints today. Physical Exam Vital signs: Vital Signs 02/11/18 11:00 02/11/18 12:00 02/11/18 13:00 Temperature Pulse Rate 85 87 89 Respiratory Rate Blood Pressure Pulse Oximetry 02/11/18 14:00 02/11/18 15:00 02/11/18 16:00 Temperature 98.1 F Pulse Rate 72 89 80 Respiratory Rate 20 Blood Pressure 110/76 Pulse Oximetry 94 L 02/11/18 17:00 02/11/18 18:00 02/11/18 19:15 Temperature 98.2 F Pulse Rate 70 87 100 H Respiratory Rate 19 Blood Pressure 124/86 Pulse Oximetry 95 02/11/18 20:00 02/11/18 21:28 02/11/18 22:22 Temperature Pulse Rate 80 65 64 Respiratory Rate Blood Pressure Pulse Oximetry 95 02/11/18 23:10 02/12/18 00:15 02/12/18 01:30 Temperature 98.5 F Pulse Rate 59 L 58 L 59 L Respiratory Rate 20 Blood Pressure 107/72 Pulse Oximetry 92 L 02/12/18 02:00 02/12/18 03:20 02/12/18 04:14 Temperature 98.3 F Pulse Rate 68 65 62 Respiratory Rate 18 Blood Pressure 115/76 Pulse Oximetry 95 02/12/18 05:37 02/12/18 06:09 02/12/18 07:00 Temperature 98.1 F Pulse Rate 69 77 67 Respiratory Rate 20 Blood Pressure 116/77 Pulse Oximetry 92 L 02/12/18 08:00 02/12/18 09:00 02/12/18 10:00 Temperature Pulse Rate 62 69 77 Respiratory Rate Blood Pressure Pulse Oximetry 92 L 02/12/18 10:25 Temperature Pulse Rate Respiratory Rate Blood Pressure Pulse Oximetry 94 L Intake & Output 02/11/18 02/12/18 02/12/18 18:59 06:59 18:59 Intake Total 2090 / 2090 480 / 480 Output Total 1100 / 1100 150 / 150 Balance 990 / 990 330 / 330 Weight 100.5 kg Intake: IV 650 / 650 Cordarone Inj 450 MG In D5W Inj 300 / 300 241 ML @ 1 MG/MIN 33.33 mls/hr IV.CONT TITRATE PRN Rx#: [id number] Azithromycin Inj 500 MG In NS 250 / 250 Inj 250 ML @ 250 mls/hr IV.SIG Q24H ANTONIO Rx#:[id number] Rocephin Inj 1,000 MG In NS Inj 100 / 100 100 ML @ 200 mls/hr IV.SIG Q24H ANTONIO Rx#:[id number] Oral 1440 / 1440 480 / 480 Output: Urine 1100 / 1100 150 / 150 Other: # Voids 1 2 Date of Last Bowel Movement 02/10/18 02/11/18 # Bowel Movements 0 Narrative: GENERAL: NAD, A&Ox3 HEAD: Normocephalic. NECK: Supple, trachea midline. No lymphadenopathy. EYES: No scleral icterus. No injection or drainage. CARDIOVASCULAR: Regular rate and rhythm without murmurs, gallops, or rubs. RESPIRATORY: Breath sounds equal bilaterally. No accessory muscle use. GASTROINTESTINAL: Abdomen soft, non-tender, nondistended. MUSCULOSKELETAL: No cyanosis, trace edema lower extremities. SKIN: Warm and dry. NEURO: No focal neurological deficits. Results - Labs CBC & Chem 7: 02/12/18 03:29 02/12/18 03:29 Laboratory Results - last 24 hr 02/12/18 02/12/18 03:29 03:29 WBC 8.0 RBC 3.03 L Hgb 10.5 L Hct 30.2 L MCV 99.7 MCH 34.6 H MCHC 34.7 RDW 13.7 Plt Count 174 MPV 9.1 Neut % (Auto) 64.2 Lymph % (Auto) 25.4 Travis % (Auto) 8.7 H Eos % (Auto) 1.3 Baso % (Auto) 0.4 Neut # (Auto) 5.2 Lymph # (Auto) 2.0 Travis # (Auto) 0.7 Eos # (Auto) 0.1 Baso # (Auto) 0.0 WBC Differential . Differential Comment Auto diff final Sodium 140 Potassium 3.7 Chloride 104 Carbon Dioxide 27.4 Anion Gap 9 BUN 12 Creatinine 1.02 Estimated GFR 72 L Random Glucose 86 Calcium 8.7 Total Bilirubin 0.8 AST 17 ALT 11 L Alkaline Phosphatase 94 Total Protein 6.7 D Albumin 3.1 L Microbiology 02/10/18 15:30 Blood - Peripheral Aerobic Blood Culture - Preliminary No growth in 1 day 02/10/18 15:30 Blood - Peripheral Anaerobic Blood Culture - Preliminary No growth in 1 day 02/10/18 15:45 Blood - Peripheral Aerobic Blood Culture - Preliminary No growth in 1 day 02/10/18 15:45 Blood - Peripheral Anaerobic Blood Culture - Preliminary No growth in 1 day Assessment and Plan - Plan 67-year-old male admitted secondary to pneumonia with A. fib RVR Now improving on treatments. Continue to monitor on telemetry. One-time Lasix provided for edema. Community-acquired pneumonia Azithromycin Rocephin Probiotics Oxygen supplementation Monitor for improvement This condition is likely contributory to the patient's A. fib RVR Atrial fibrillation with RVR Improved Continue diltiazem p.o. Continue IV amiodarone drip Follow on telemetry Continue Eliquis Cardiology following Coronary artery disease Continue baseline treatments Cardiac enzymes within normal limits through time Hyperlipidemia Continue present treatment Follow as an outpatient Hypertension Continue baseline treatment Follow blood pressures Adjust treatments as needed Hold Lisinopril, Add Diltiazem DVT prophylaxis Eliquis
[2018-02-12] MEDS ORDERED: Furosemide 40 MG Tablet PO ONE (11:10)
[2018-02-12] MEDS: Azithromycin Inj 500 MG in Sodium Chlor 0.9% Inj 250 ML IV.SIG SCH (15:53)
[2018-02-12] MEDS ORDERED: Morphine Inj 4 MG/ML Vial IV.PUSH ONE (21:31)
[2018-02-12 23:50] LABS: Creatine Kinase 97 U/L (39-308)
[2018-02-13] MEDS ORDERED: Aluminum/Magnesium/Simethacone Susp 30 ML UDC PO ONE (00:43)
[2018-02-13 06:54] LABS: Creatine Kinase 89 U/L (39-308)
[2018-02-13] MEDS: Famotidine 20 MG Tablet PO SCH (08:52)
[2018-02-13] MEDS: Lactobacillus Acidophilus/L. Spores Tablet PO SCH ×3 (08:52→17:57)
[2018-02-13] MEDS: Senna/Docusate Sodium 8.6/50 MG Tablet PO SCH ×2 (08:53→21:08)
[2018-02-13] MEDS: Folic Acid 1 MG Tablet PO SCH (08:53)
--- NOTE | 2018-02-13 11:06 | P.PNIM ---
Subjective Interval history: Mr. Khalil still complains of epigastric abdominal pain. He says his pain has not improved since time of admit. His RVR has been stabilized on new treatments. Additionally his pneumonia shows evidence of good response to antibiotics. Physical Exam Vital signs: Vital Signs 02/12/18 12:00 02/12/18 13:00 02/12/18 14:00 Temperature Pulse Rate 76 79 74 Respiratory Rate Blood Pressure Pulse Oximetry 02/12/18 15:00 02/12/18 16:00 02/12/18 16:37 Temperature 98.5 F Pulse Rate 79 74 Respiratory Rate 20 Blood Pressure 108/73 Pulse Oximetry 95 95 02/12/18 17:00 02/12/18 18:00 02/12/18 19:06 Temperature Pulse Rate 76 74 61 Respiratory Rate Blood Pressure Pulse Oximetry 02/12/18 19:20 02/12/18 20:00 02/12/18 20:10 Temperature 98.3 F Pulse Rate 65 78 Respiratory Rate 21 Blood Pressure 106/71 Pulse Oximetry 96 97 02/12/18 21:00 02/12/18 22:00 02/12/18 23:00 Temperature Pulse Rate 67 57 L 59 L Respiratory Rate Blood Pressure Pulse Oximetry 02/12/18 23:50 02/13/18 00:15 02/13/18 01:30 Temperature 98.4 F Pulse Rate 65 57 L 62 Respiratory Rate 20 Blood Pressure 122/86 Pulse Oximetry 97 02/13/18 02:00 02/13/18 03:20 02/13/18 04:54 Temperature 98.4 F Pulse Rate 67 66 64 Respiratory Rate 19 Blood Pressure 126/81 Pulse Oximetry 98 02/13/18 05:01 02/13/18 06:08 02/13/18 07:00 Temperature 98.3 F Pulse Rate 80 73 79 Respiratory Rate 20 Blood Pressure 121/83 Pulse Oximetry 95 02/13/18 08:00 02/13/18 09:00 02/13/18 10:00 Temperature Pulse Rate 107 H 88 78 Respiratory Rate Blood Pressure Pulse Oximetry 96 Intake & Output 02/12/18 02/13/18 02/13/18 18:59 06:59 18:59 Intake Total 1325 / 1325 240 / 240 Output Total 800 / 800 400 / 400 Balance 525 / 525 -160 / -160 Weight 100.5 kg Intake: IV 350 / 350 Azithromycin Inj 500 MG In NS 250 / 250 Inj 250 ML @ 250 mls/hr IV.SIG Q24H ANTONIO Rx#:[id number] Rocephin Inj 1,000 MG In NS Inj 100 / 100 100 ML @ 200 mls/hr IV.SIG Q24H ANTONIO Rx#:[id number] Oral 975 / 975 240 / 240 Output: Urine 800 / 800 400 / 400 Other: Date of Last Bowel Movement 02/11/18 # Bowel Movements 0 Narrative: GENERAL: NAD, A&Ox3 HEAD: Normocephalic. NECK: Supple, trachea midline. No lymphadenopathy. EYES: No scleral icterus. No injection or drainage. CARDIOVASCULAR: Regular rate and rhythm without murmurs, gallops, or rubs. RESPIRATORY: Breath sounds equal bilaterally. No accessory muscle use. GASTROINTESTINAL: Abdomen soft, non-tender, nondistended. MUSCULOSKELETAL: No cyanosis, trace edema lower extremities. SKIN: Warm and dry. NEURO: No focal neurological deficits. Results - Labs CBC & Chem 7: 02/12/18 03:29 02/12/18 03:29 Laboratory Results - last 24 hr 02/12/18 02/13/18 23:23 05:10 Total Creatine Kinase 97 89 Troponin I Less than 0.02 L Less than 0.02 L Microbiology 02/10/18 15:30 Blood - Peripheral Aerobic Blood Culture - Preliminary No growth in 3 days 02/10/18 15:30 Blood - Peripheral Anaerobic Blood Culture - Preliminary No growth in 3 days 02/10/18 15:45 Blood - Peripheral Aerobic Blood Culture - Preliminary No growth in 3 days 02/10/18 15:45 Blood - Peripheral Anaerobic Blood Culture - Preliminary No growth in 3 days Assessment and Plan - Plan 67-year-old male admitted secondary to pneumonia with A. fib RVR No benefit to epigastric pain after patient provided with Lasix. No improvement in epigastric pain through time despite treatment of pneumonia and resolution of A. fib RVR. Epigastric pain Consult gastroenterology Continue to monitor symptoms Community-acquired pneumonia Azithromycin Rocephin Probiotics Oxygen supplementation Monitor for improvement This condition is likely contributory to the patient's A. fib RVR Atrial fibrillation with RVR Improved Continue diltiazem p.o. Continue IV amiodarone drip Follow on telemetry Continue Eliquis Cardiology following Coronary artery disease Continue baseline treatments Cardiac enzymes within normal limits through time Hyperlipidemia Continue present treatment Follow as an outpatient Hypertension Continue baseline treatment Follow blood pressures Adjust treatments as needed Hold Lisinopril, Add Diltiazem DVT prophylaxis Eliquis
--- NOTE | 2018-02-13 12:49 | P.PNCA ---
<Mikala Adan N - Last Filed: 02/13/18 12:41> Subjective Interval history: Pt denies any chest pressure, palpitations, dizziness or shortness of breath. Pt does complain of lower abdominal pain that radiates up into the chest. Physical Exam Vital signs: Vital Signs 02/12/18 13:00 02/12/18 14:00 02/12/18 15:00 Temperature 98.5 F Pulse Rate 79 74 79 Respiratory Rate 20 Blood Pressure 108/73 Pulse Oximetry 95 02/12/18 16:00 02/12/18 16:37 02/12/18 17:00 Temperature Pulse Rate 74 76 Respiratory Rate Blood Pressure Pulse Oximetry 95 02/12/18 18:00 02/12/18 19:06 02/12/18 19:20 Temperature 98.3 F Pulse Rate 74 61 65 Respiratory Rate 21 Blood Pressure 106/71 Pulse Oximetry 96 02/12/18 20:00 02/12/18 20:10 02/12/18 21:00 Temperature Pulse Rate 78 67 Respiratory Rate Blood Pressure Pulse Oximetry 97 02/12/18 22:00 02/12/18 23:00 02/12/18 23:50 Temperature 98.4 F Pulse Rate 57 L 59 L 65 Respiratory Rate 20 Blood Pressure 122/86 Pulse Oximetry 97 02/13/18 00:15 02/13/18 01:30 02/13/18 02:00 Temperature Pulse Rate 57 L 62 67 Respiratory Rate Blood Pressure Pulse Oximetry 02/13/18 03:20 02/13/18 04:54 02/13/18 05:01 Temperature 98.4 F Pulse Rate 66 64 80 Respiratory Rate 19 Blood Pressure 126/81 Pulse Oximetry 98 02/13/18 06:08 02/13/18 07:00 02/13/18 08:00 Temperature 98.3 F Pulse Rate 73 79 107 H Respiratory Rate 20 Blood Pressure 121/83 Pulse Oximetry 95 96 02/13/18 09:00 02/13/18 10:00 02/13/18 11:00 Temperature 98.2 F Pulse Rate 88 78 76 Respiratory Rate 20 Blood Pressure 120/80 Pulse Oximetry 96 02/13/18 12:00 Temperature Pulse Rate 78 Respiratory Rate Blood Pressure Pulse Oximetry Intake & Output 02/12/18 02/13/18 02/13/18 18:59 06:59 18:59 Intake Total 1325 / 1325 240 / 240 Output Total 800 / 800 400 / 400 Balance 525 / 525 -160 / -160 Weight 100.5 kg Intake: IV 350 / 350 Azithromycin Inj 500 MG In NS 250 / 250 Inj 250 ML @ 250 mls/hr IV.SIG Q24H ANTONIO Rx#:[id number] Rocephin Inj 1,000 MG In NS Inj 100 / 100 100 ML @ 200 mls/hr IV.SIG Q24H ANTONIO Rx#:[id number] Oral 975 / 975 240 / 240 Output: Urine 800 / 800 400 / 400 Other: Date of Last Bowel Movement 02/11/18 # Bowel Movements 0 Narrative: GENERAL: This is a well-nourished, well-developed patient, in no apparent distress. Patient speaks in clear complete sentences. Patient is pleasant. HEENT: Head is atraumatic and normocephalic. Neck is supple without lymphadenopathy and trachea is midline. No JVD or carotid bruits. CARDIOVASCULAR: Atrial fibrillation without murmurs, gallops, or rubs. RESPIRATORY: Clear to auscultation. Breath sounds equal bilaterally. No wheezes , rales, or rhonchi. Chest wall is nontender. No use of accessory muscles. GASTROINTESTINAL: Lower abdominal pain that radiates up into the left side of the chest, increases with palpation. Abdomen soft. No obvious pulsatile mass or bruit. No CVA tenderness. Strong femoral pulses bilaterally. Normal bowel sounds in all quadrants. MUSCULOSKELETAL: Patient is moving upper and lower extremities freely. No calf tenderness or edema, no Homans sign. Strong pulses in upper and lower extremities. NEUROLOGICAL: Patient is alert and oriented. Cranial nerves 2-12 are grossly intact. No focal deficits and speech is clear. SKIN: No rash and turgor is normal. Assessment and Plan - Assessment (1) Atrial fibrillation with RVR Code(s): I48.91 - Unspecified atrial fibrillation Status: Acute (2) Hypertension Code(s): I10 - Essential (primary) hypertension Status: Acute (3) Community acquired pneumonia Code(s): J18.9 - Pneumonia, unspecified organism Status: Acute (4) Coronary artery disease Code(s): I25.10 - Atherosclerotic heart disease of [place] coronary artery without angina pectoris Status: Acute (5) Hyperlipidemia Code(s): E78.5 - Hyperlipidemia, unspecified Status: Acute - Plan Continue Cardizem for rate control GI consulted for lower abdominal pain Continue with current cardiac treatment plan. Will follow during hospitalization and follow up in office after discharge. Patient will follow up with primary Clinical Law Professor in [place] in approximately one month. The patient was seen and evaluated by Dr. Simons who participated in care, management and decision-making. <Aurora Simons - Last Filed: 02/13/18 14:22> Physical Exam Vital signs: Vital Signs 02/12/18 15:00 02/12/18 16:00 02/12/18 16:37 Temperature 98.5 F Pulse Rate 79 74 Respiratory Rate 20 Blood Pressure 108/73 Pulse Oximetry 95 95 02/12/18 17:00 02/12/18 18:00 02/12/18 19:06 Temperature Pulse Rate 76 74 61 Respiratory Rate Blood Pressure Pulse Oximetry 02/12/18 19:20 02/12/18 20:00 02/12/18 20:10 Temperature 98.3 F Pulse Rate 65 78 Respiratory Rate 21 Blood Pressure 106/71 Pulse Oximetry 96 97 02/12/18 21:00 02/12/18 22:00 02/12/18 23:00 Temperature Pulse Rate 67 57 L 59 L Respiratory Rate Blood Pressure Pulse Oximetry 02/12/18 23:50 02/13/18 00:15 02/13/18 01:30 Temperature 98.4 F Pulse Rate 65 57 L 62 Respiratory Rate 20 Blood Pressure 122/86 Pulse Oximetry 97 02/13/18 02:00 02/13/18 03:20 02/13/18 04:54 Temperature 98.4 F Pulse Rate 67 66 64 Respiratory Rate 19 Blood Pressure 126/81 Pulse Oximetry 98 02/13/18 05:01 02/13/18 06:08 02/13/18 07:00 Temperature 98.3 F Pulse Rate 80 73 79 Respiratory Rate 20 Blood Pressure 121/83 Pulse Oximetry 95 02/13/18 08:00 02/13/18 09:00 02/13/18 10:00 Temperature Pulse Rate 107 H 88 78 Respiratory Rate Blood Pressure Pulse Oximetry 96 02/13/18 11:00 02/13/18 12:00 Temperature 98.2 F Pulse Rate 76 78 Respiratory Rate 20 Blood Pressure 120/80 Pulse Oximetry 96 Intake & Output 02/12/18 02/13/18 02/13/18 18:59 06:59 18:59 Intake Total 1325 / 1325 240 / 240 Output Total 800 / 800 400 / 400 Balance 525 / 525 -160 / -160 Weight 221 lb 9.033 oz Intake: IV 350 / 350 Azithromycin Inj 500 MG In NS 250 / 250 Inj 250 ML @ 250 mls/hr IV.SIG Q24H ANTONIO Rx#:[id number] Rocephin Inj 1,000 MG In NS Inj 100 / 100 100 ML @ 200 mls/hr IV.SIG Q24H ANTONIO Rx#:[id number] Oral 975 / 975 240 / 240 Output: Urine 800 / 800 400 / 400 Other: Date of Last Bowel Movement 02/11/18 # Bowel Movements 0 Assessment and Plan - Assessment (1) Atrial fibrillation with RVR Code(s): I48.91 - Unspecified atrial fibrillation Status: Acute (2) Hypertension Code(s): I10 - Essential (primary) hypertension Status: Acute (3) Community acquired pneumonia Code(s): J18.9 - Pneumonia, unspecified organism Status: Acute (4) Coronary artery disease Code(s): I25.10 - Atherosclerotic heart disease of [place] coronary artery without angina pectoris Status: Acute (5) Hyperlipidemia Code(s): E78.5 - Hyperlipidemia, unspecified Status: Acute - Attending Attestation Patient seen and examined. I reviewed and agree with the evaluation and plan as presented. AF rate well controlled. Continue rate control and anticoagulation. GI evaluation planned. Will schedule f/u in our office after discharge before he goes back to [place].
[2018-02-13 14:37] LABS: Creatine Kinase 86 U/L (39-308)
--- NOTE | 2018-02-13 15:32 | P.CONGI ---
History of Present Illness Consult date: 02/13/18 Consult reason: Epigastric pain Chief complaint: Atrial Fibrillation with RVR, Pneumonia History of Present Illness: This is a 67-year-old male who came into the hospital on 02/10/2018 with chest pain and elevated heart rate which was atrial fib with RVR. Patient was initially given amiodarone and was started on Eliquis on 02/10/2018. Patient is currently on room air but has been using oxygen since his admission and still complains of a sensation of shortness of breath and pain with inspiration. Patient had noted some epigastric pain on assessment over the past 24 hours and gastroenterology was consulted to evaluate further. Patient does note some gastric and epigastric discomfort over the past 1-2 days, aggravating factors noted with his shortness of breath. Patient notes pain scale 6 out of 10 initially but now, denies any nausea or vomiting or dyspepsia or dysphasia. Current labs show hemoglobin at 11.6 and currently 10.5, PT/INR 1.3 and bilirubin and LFTs normal range. Patient states father had colon cancer at the age of 80 otherwise no other family history. Patient notes no previous EGD or colonoscopy. Current medications and alleviating factors initiated have been Pepcid and probiotics. Patient notes normal bowel regimen for him is every 2-3 days denies any straining or constipation or diarrhea. <Rosanne Cabrera - Last Filed: 02/13/18 15:32> Review of Systems All other systems reviewed negative except as stated in HPI <Rosanne Cabrera - Last Filed: 02/13/18 15:32> PMFSH - History History Provided By: Patient - Medical History Medical History: Medical History (Last Updated 02/10/18 @ 12:59 by [employer]) CAD (coronary artery disease) HTN (hypertension) - Surgical History Surgical History: Surgical History (Last Updated 02/10/18 @ 12:59 by Fan[employer]) H/O heart artery stent History of cardiac cath - Tobacco History Second Hand Smoke Exposure: No Tobacco Use In Past 30 Days: No Smoking Status: Former smoker Tobacco Type: Cigarettes - Alcohol History How Often Do You Have a Drink Containing Alcohol: Never - Substance Use History Substance History: No History of Abuse - Travel History Recent Travel in the [place] Within the Last 8 Weeks: No Recent Travel Out of the Country Within the Last 8 Weeks: No - Immunization History Tetanus Immunization: >5 Years Hx Influenza Vaccine This Season: No <Rosanne Cabrera Deysi - Last Filed: 02/13/18 15:32> - Medical History Medical History: Medical History (Last Updated 02/10/18 @ 12:59 by FanBread) CAD (coronary artery disease) HTN (hypertension) - Surgical History Surgical History: Surgical History (Last Updated 02/10/18 @ 12:59 by [employer]Bread) H/O heart artery stent History of cardiac cath <Toshia Rutherford - Last Filed: 02/13/18 15:44> Medications and Allergies Active Medications: Active Medications Al Hydroxide/Mg Hydroxide (Milk Of Magnesia Liq) 30 ml PO Q12H PRN PRN Reason: Mild Constipation Apixaban (Eliquis) 5 mg PO BID [facility] Last Admin: 02/13/18 08:53 Dose: 5 mg Atorvastatin Calcium (Lipitor) 80 mg PO DAILY [facility] Last Admin: 02/13/18 08:52 Dose: 80 mg Bisacodyl (Dulcolax Supp) 10 mg RECTAL DAILY PRN PRN Reason: SEVERE CONSITIPATION Last Admin: 02/13/18 08:52 Dose: 10 mg Cyanocobalamin (Vitamin B12) 1,000 mcg PO DAILY [facility] Last Admin: 02/13/18 08:52 Dose: 1,000 mcg Diltiazem HCl (Cardizem) 90 mg PO QID [facility] Last Admin: 02/13/18 13:01 Dose: 90 mg Famotidine (Pepcid) 20 mg PO DAILY [facility] Last Admin: 02/13/18 08:52 Dose: 20 mg Folic Acid (Folic Acid) 1 mg PO DAILY [facility] Last Admin: 02/13/18 08:53 Dose: 1 mg Azithromycin 500 mg/ Sodium (Chloride) 250 mls @ 250 mls/hr IV.SIG Q24H [facility] Last Infusion: 02/12/18 17:49 Dose: Infused Ceftriaxone Sodium 1,000 mg/ (Sodium Chloride) 100 mls @ 200 mls/hr IV.SIG Q24H [facility] Last Infusion: 02/12/18 17:48 Dose: Infused Lactobacillus Acidophilus (Lactinex) 1 tab PO TID [facility] Last Admin: 02/13/18 13:02 Dose: 1 tab Lactulose (Lactulose Liq) 30 ml PO DAILY PRN PRN Reason: SEVERE CONSITIPATION Levothyroxine Sodium (Synthroid) 25 mcg PO DAILY@0600 [facility] Last Admin: 02/13/18 05:25 Dose: 25 mcg Metoprolol Succinate (Toprol Xl) 100 mg PO DAILY [facility] Last Admin: 02/13/18 08:52 Dose: 100 mg Nitroglycerin (Nitrostat Sl) 0.4 mg SL Q5M PRN PRN Reason: CHEST PAIN Ondansetron HCl (Zofran Inj) 4 mg IV.PUSH Q6H PRN PRN Reason: NAUSEA OR VOMITING Last Admin: 02/10/18 17:19 Dose: 4 mg Senna/Docusate Sodium (Janey-Colace) 1 tab PO BID [facility] Last Admin: 02/13/18 08:53 Dose: 1 tab Sennosides (Senokot) 17.2 mg PO Q12H PRN PRN Reason: Moderate Constipation Last Admin: 02/13/18 05:25 Dose: 17.2 mg Sodium Chloride (Ns Flush) 2 ml IV.FLUSH PRN PRN PRN Reason: FLUSH AFTER USING IV ACCESS Sodium Chloride (Ns Flush) 2 ml IV.FLUSH BID [facility] Last Admin: 02/13/18 08:53 Dose: 2 ml Temazepam (Restoril) 15 mg PO HS PRN PRN Reason: INSOMNIA <Rosanne Cabrera - Last Filed: 02/13/18 15:32> Active Medications: Active Medications Al Hydroxide/Mg Hydroxide (Milk Of Magndeepak Liq) 30 ml PO Q12H PRN PRN Reason: Mild Constipation Apixaban (Eliquis) 5 mg PO BID [facility] Last Admin: 02/13/18 08:53 Dose: 5 mg Atorvastatin Calcium (Lipitor) 80 mg PO DAILY [facility] Last Admin: 02/13/18 08:52 Dose: 80 mg Bisacodyl (Dulcolax Supp) 10 mg RECTAL DAILY PRN PRN Reason: SEVERE CONSITIPATION Last Admin: 02/13/18 08:52 Dose: 10 mg Cyanocobalamin (Vitamin B12) 1,000 mcg PO DAILY [facility] Last Admin: 02/13/18 08:52 Dose: 1,000 mcg Diltiazem HCl (Cardizem) 90 mg PO QID [facility] Last Admin: 02/13/18 13:01 Dose: 90 mg Famotidine (Pepcid) 20 mg PO DAILY [facility] Last Admin: 02/13/18 08:52 Dose: 20 mg Folic Acid (Folic Acid) 1 mg PO DAILY [facility] Last Admin: 02/13/18 08:53 Dose: 1 mg Azithromycin 500 mg/ Sodium (Chloride) 250 mls @ 250 mls/hr IV.SIG Q24H [facility] Last Infusion: 02/12/18 17:49 Dose: Infused Ceftriaxone Sodium 1,000 mg/ (Sodium Chloride) 100 mls @ 200 mls/hr IV.SIG Q24H [facility] Last Infusion: 02/12/18 17:48 Dose: Infused Lactobacillus Acidophilus (Lactinex) 1 tab PO TID [facility] Last Admin: 02/13/18 13:02 Dose: 1 tab Lactulose (Lactulose Liq) 30 ml PO DAILY PRN PRN Reason: SEVERE CONSITIPATION Levothyroxine Sodium (Synthroid) 25 mcg PO DAILY@0600 [facility] Last Admin: 02/13/18 05:25 Dose: 25 mcg Metoprolol Succinate (Toprol Xl) 100 mg PO DAILY [facility] Last Admin: 02/13/18 08:52 Dose: 100 mg Nitroglycerin (Nitrostat Sl) 0.4 mg SL Q5M PRN PRN Reason: CHEST PAIN Ondansetron HCl (Zofran Inj) 4 mg IV.PUSH Q6H PRN PRN Reason: NAUSEA OR VOMITING Last Admin: 02/10/18 17:19 Dose: 4 mg Senna/Docusate Sodium (Janey-Colace) 1 tab PO BID [facility] Last Admin: 02/13/18 08:53 Dose: 1 tab Sennosides (Senokot) 17.2 mg PO Q12H PRN PRN Reason: Moderate Constipation Last Admin: 02/13/18 05:25 Dose: 17.2 mg Sodium Chloride (Ns Flush) 2 ml IV.FLUSH PRN PRN PRN Reason: FLUSH AFTER USING IV ACCESS Sodium Chloride (Ns Flush) 2 ml IV.FLUSH BID [facility] Last Admin: 02/13/18 08:53 Dose: 2 ml Temazepam (Restoril) 15 mg PO HS PRN PRN Reason: INSOMNIA <Bratu,Toshia - Last Filed: 02/13/18 15:44> Allergies Allergy/AdvReac Type Severity Reaction Status Date / Time No Known Allergies Allergy Unverified 02/10/18 12:52 Home Medications Medication Instructions Recorded Confirmed Type apixaban [Eliquis] 5 mg PO BID 02/10/18 02/10/18 History atorvastatin 80 mg PO DAILY 02/10/18 02/10/18 History cyanocobalamin (vitamin B-12) 1,000 mcg PO DAILY 02/10/18 02/10/18 History [Vitamin B-12] famotidine 20 mg PO DAILY 02/10/18 02/10/18 History folic acid 1 mg PO DAILY 02/10/18 02/10/18 History levothyroxine 25 mcg PO DAILY 02/10/18 02/10/18 History lisinopril 20 mg PO DAILY 02/10/18 02/10/18 History metoprolol succinate 100 mg PO DAILY 02/10/18 02/10/18 History Exam Vital signs: Vital Signs 02/12/18 16:00 02/12/18 16:37 02/12/18 17:00 Temperature Pulse Rate 74 76 Respiratory Rate Blood Pressure Pulse Oximetry 95 02/12/18 18:00 02/12/18 19:06 02/12/18 19:20 Temperature 98.3 F Pulse Rate 74 61 65 Respiratory Rate 21 Blood Pressure 106/71 Pulse Oximetry 96 02/12/18 20:00 02/12/18 20:10 02/12/18 21:00 Temperature Pulse Rate 78 67 Respiratory Rate Blood Pressure Pulse Oximetry 97 02/12/18 22:00 02/12/18 23:00 02/12/18 23:50 Temperature 98.4 F Pulse Rate 57 L 59 L 65 Respiratory Rate 20 Blood Pressure 122/86 Pulse Oximetry 97 02/13/18 00:15 02/13/18 01:30 02/13/18 02:00 Temperature Pulse Rate 57 L 62 67 Respiratory Rate Blood Pressure Pulse Oximetry 02/13/18 03:20 02/13/18 04:54 02/13/18 05:01 Temperature 98.4 F Pulse Rate 66 64 80 Respiratory Rate 19 Blood Pressure 126/81 Pulse Oximetry 98 02/13/18 06:08 02/13/18 07:00 02/13/18 08:00 Temperature 98.3 F Pulse Rate 73 79 107 H Respiratory Rate 20 Blood Pressure 121/83 Pulse Oximetry 95 96 02/13/18 09:00 02/13/18 10:00 02/13/18 11:00 Temperature 98.2 F Pulse Rate 88 78 76 Respiratory Rate 20 Blood Pressure 120/80 Pulse Oximetry 96 02/13/18 12:00 02/13/18 13:00 02/13/18 14:00 Temperature Pulse Rate 78 74 73 Respiratory Rate Blood Pressure Pulse Oximetry Intake & Output 02/12/18 02/13/18 02/13/18 18:59 06:59 18:59 Intake Total 1325 / 1325 240 / 240 Output Total 800 / 800 400 / 400 Balance 525 / 525 -160 / -160 Weight 100.5 kg Intake: IV 350 / 350 Azithromycin Inj 500 MG In NS 250 / 250 Inj 250 ML @ 250 mls/hr IV.SIG Q24H [facility] Rx#:[id number] Rocephin Inj 1,000 MG In NS Inj 100 / 100 100 ML @ 200 mls/hr IV.SIG Q24H [facility] Rx#:[id number] Oral 975 / 975 240 / 240 Output: Urine 800 / 800 400 / 400 Other: Date of Last Bowel Movement 02/11/18 # Bowel Movements 0 - Constitutional mild distress, average body habitus (Mild overweight) - Routine HEENT Exam Head: Present: normocephalic, atraumatic ENT: Present: mucous membranes moist - Routine Neck Exam Present: supple - Routine Respiratory Exam Present: accessory muscle use (Mild) - Routine Cardiovascular Exam Present: irregular rhythm - Routine Abdominal Exam Present: soft, normoactive bowel sounds (Round,) - Routine Skin Exam Present: intact - Routine Neurological Exam Present: alert (Answer simple questions) <Rosanne Cabrera - Last Filed: 02/13/18 15:32> Vital signs: Vital Signs 02/12/18 16:00 02/12/18 16:37 02/12/18 17:00 Temperature Pulse Rate 74 76 Respiratory Rate Blood Pressure Pulse Oximetry 95 02/12/18 18:00 02/12/18 19:06 02/12/18 19:20 Temperature 98.3 F Pulse Rate 74 61 65 Respiratory Rate 21 Blood Pressure 106/71 Pulse Oximetry 96 02/12/18 20:00 02/12/18 20:10 02/12/18 21:00 Temperature Pulse Rate 78 67 Respiratory Rate Blood Pressure Pulse Oximetry 97 02/12/18 22:00 02/12/18 23:00 08/09/18 23:50 Temperature 98.4 F Pulse Rate 57 L 59 L 65 Respiratory Rate 20 Blood Pressure 122/86 Pulse Oximetry 97 02/13/18 00:15 02/13/18 01:30 02/13/18 02:00 Temperature Pulse Rate 57 L 62 67 Respiratory Rate Blood Pressure Pulse Oximetry 02/13/18 03:20 02/13/18 04:54 02/13/18 05:01 Temperature 98.4 F Pulse Rate 66 64 80 Respiratory Rate 19 Blood Pressure 126/81 Pulse Oximetry 98 02/13/18 06:08 02/13/18 07:00 02/13/18 08:00 Temperature 98.3 F Pulse Rate 73 79 107 H Respiratory Rate 20 Blood Pressure 121/83 Pulse Oximetry 95 96 02/13/18 09:00 02/13/18 10:00 02/13/18 11:00 Temperature 98.2 F Pulse Rate 88 78 76 Respiratory Rate 20 Blood Pressure 120/80 Pulse Oximetry 96 02/13/18 12:00 02/13/18 13:00 02/13/18 14:00 Temperature Pulse Rate 78 74 73 Respiratory Rate Blood Pressure Pulse Oximetry Intake & Output 02/12/18 02/13/18 02/13/18 18:59 06:59 18:59 Intake Total 1325 / 1325 240 / 240 Output Total 800 / 800 400 / 400 Balance 525 / 525 -160 / -160 Weight 100.5 kg Intake: IV 350 / 350 Azithromycin Inj 500 MG In NS 250 / 250 Inj 250 ML @ 250 mls/hr IV.SIG Q24H [facility] Rx#:[id number] Rocephin Inj 1,000 MG In NS Inj 100 / 100 100 ML @ 200 mls/hr IV.SIG Q24H [facility] Rx#:[id number] Oral 975 / 975 240 / 240 Output: Urine 800 / 800 400 / 400 Other: Date of Last Bowel Movement 02/11/18 # Bowel Movements 0 <Toshia Rutherford - Last Filed: 02/13/18 15:44> Results - Labs CBC & Chem 7: 02/12/18 03:29 02/12/18 03:29 Labs: Laboratory Results - last 24 hr 02/12/18 02/13/18 02/13/18 23:23 05:10 13:50 Total Creatine Kinase 97 89 86 Troponin I Less than 0.02 L Less than 0.02 L Less than 0.02 L <Rosanne Cabrera - Last Filed: 02/13/18 15:32> - Labs CBC & Chem 7: 02/12/18 03:29 02/12/18 03:29 Labs: Laboratory Results - last 24 hr 02/12/18 02/13/18 02/13/18 23:23 05:10 13:50 Total Creatine Kinase 97 89 86 Troponin I Less than 0.02 L Less than 0.02 L Less than 0.02 L <Toshia Rutherford - Last Filed: 02/13/18 15:44> Assessment and Plan (1) Anemia Status: Acute Code(s): D64.9 - Anemia, unspecified (2) Epigastric abdominal pain Status: Acute Code(s): R10.13 - Epigastric pain - Plan Epigastric abdominal pain/gastric abdominal pain. Denies any discomfort on palpation but does note a dull ache in this area for the past 1-2 days that he also associates with his shortness of breath. Patient denies any nausea or vomiting or dyspepsia or dysphasia. Patient denies any obvious bleeding Possible functional constipation, bowel regimen every 2-3 days but denies any straining. Positive family history of colon cancer his father at the age of 80. No previous EGD or colonoscopy Current treatment regimen atrial fibrillation with RVR initially requiring amiodarone and now on Eliquis since 02/10/2018. Will monitor further for any drop in hemoglobin or symptoms of GI bleed. Labs show current hemoglobin 10.5, PT/INR 1.3, normal bilirubin and LFTs. Plan Diet as tolerated probable cardiac care unit nurse labs with special attention hemoglobin and transfuse as needed Pepcid, add Protonix Probiotic Okay with folic acid and vitamin B12 as ordered Consider EGD/and possible colonoscopy after cardiac clearance Patient was seen per myself and Dr. Rutherford, note was written her behalf <Rosanne Cabrera - Last Filed: 02/13/18 15:32> (1) Anemia Status: Acute Code(s): D64.9 - Anemia, unspecified (2) Epigastric abdominal pain Status: Acute Code(s): R10.13 - Epigastric pain - Attending Attestation seen, examined agree with above cta aorta showed gallstones, dilated appendix-patient has no clinical signs of appendicitis ct abdomen/pelvis egd/colonoscopy once cleared by cardiology if any signs of appendicitis will need general surgery consult <Toshia Rutherford - Last Filed: 02/13/18 15:44>
[2018-02-13] MEDS ORDERED: Diatrizoate Meglum/Diatrizoate Sod Liq 9 ML UDC PO ONE (16:15)
--- NOTE | 2018-02-13 16:20 | ECG ---
Date Performed: 02/12/2018 Time Performed: 21:38:08 PTAGE: 67 years EKG: Atrial fibrillation. Prolonged QT interval Leftward axis Inferior infarct - age undetermine d Lateral ST-T changes may be due to myocardial ischemia Abnormal ECG PREVIOUS TRACING : 02/10/2018 12.53.20 DOCTOR: Misael Cheatham Interpretating Date/Time 02/13/2018 16:20:04
--- NOTE | 2018-02-13 16:22 | ECG ---
Date Performed: 02/13/2018 Time Performed: 04:13:32 PTAGE: 67 years EKG: Atrial fibrillation. Leftward axis Inferior infarct - age undetermined Light R wave transit ion. Lateral ST changes may be due to myocardial ischemia Abnormal ECG PREVIOUS TRACING : 02/12/2018 21.38.08 DOCTOR: Misael Cheatham Interpretating Date/Time 02/13/2018 16:20:56
[2018-02-13] MEDS: Azithromycin Inj 500 MG in Sodium Chlor 0.9% Inj 250 ML IV.SIG SCH (16:23)
--- NOTE | 2018-02-13 21:53 | CT ---
EXAM DATE: 02/13/2018 9:41 PM EDT AGE/SEX: 67 years / Male INDICATIONS: Epigastric pain. CLINICAL DATA: This is the patient's initial encounter. Patient reports that signs and symptoms have been present for 1 day and indicates a pain score of 5/10. MEDICAL/SURGICAL HISTORY: Hypertension. Cardiovascular disease. AFIB . Coronary stent. ORAL CONTRAST: Partial prescribed oral contrast ingested. RADIATION DOSE: 12.44 CTDI (mGy) COMPARISON: [facility], CTA THOR ABD AORTA W CONTRAST W 3D, 02/10/2018. . TECHNIQUE: Multiple contiguous axial images were obtained through the abdomen and pelvis following b olus infusion of 95 ml Omnipaque 350 (iohexol) nonionic water-soluble contrast as a single exam dos e. Partial prescribed oral contrast ingested. Using automated exposure control and adjustment of the mA and/or kV according to patient size, radiation dose was kept as low as reasonably achievable to o btain optimal diagnostic quality images. DICOM format image data is available electronically for rev iew and comparison. FINDINGS: Moderate right and [id number] left pleural effusions present and I believe both are increased. Liver, spleen, pancreas, adrenal glands and kidneys remain within normal limits. Gallbladder is currently contracted. There is some pericholecystic fluid, nonspecific. No duct stone or ductal dilatation. No obstruction or inflammatory changes are seen of the gastrointestinal tract. Tortuous and atherosclerotic abdominal aorta again noted. Bladder wall appears mildly thickened. No free fluid or free air. No lymphadenopathy. CONCLUSION: 1. Increasing bilateral pleural effusions. 2. Contracted gallbladder with pericholecystic fluid. Tiny stones again noted. 3. Tortuous abdominal aorta. 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 4. Some wall thickening of the bladder; cystitis would be in the differential. Electronically signed by: Mayur Funk MD 02/13/2018 9:52 PM EDT
[2018-02-14] MEDS: Folic Acid 1 MG Tablet PO SCH (09:10)
[2018-02-14] MEDS: Famotidine 20 MG Tablet PO SCH (09:10)
[2018-02-14] MEDS: Lactobacillus Acidophilus/L. Spores Tablet PO SCH ×3 (09:11→17:25)
[2018-02-14] MEDS: Senna/Docusate Sodium 8.6/50 MG Tablet PO SCH ×2 (09:11→21:15)
[2018-02-14] MEDS ORDERED: Sincalide Inj 5 MCG Vial IV.PUSH ONE (11:11)
--- NOTE | 2018-02-14 12:08 | NM ---
EXAM DATE: 02/14/2018 12:03 PM EDT AGE/SEX: 67 years / Male INDICATIONS: Gallstones. Abdominal pain. CLINICAL DATA: This is the patient's initial encounter. Patient reports that signs and symptoms have been present for 2 days and indicates a pain score of 4/10. MEDICAL/SURGICAL HISTORY: Hypertension. Coronary artery disease. Coronary artery stent. COMPARISON: [facility] [place]BDOMEN & PELVIS W CONTRAST, 02/13/2018. . DOSE: 4.3 mCi Tc-99m mebrofenin i.v. Medication: 1.96 mcg Cholecystokinin IV No symptomatic response Cholecystokinin was administered by slow infusion over 8 minutes beginning at 60 minutes. TECHNIQUE: Following the intravenous administration of radiotracer, dynamic sequential images were pe rformed with continuous acquisition. Time-activity curves were generated. FINDINGS: Hepatic Kinetics: There is prompt uptake of radiotracer in the liver. No focal defects are seen. Ther e is normal rate of washout from the hepatic parenchyma. Biliary Clearance: Activity is first seen in the extrahepatic biliary system at 15 minutes. There is normal excretion into the small bowel. Gallbladder: No definite activity in the gallbladder. Post-CCK: CCK was given. Common bile duct kinetics are normal and there is no evidence of biliary obs truction. No symptomatic response after cholecystokinin infusion. Biliary-Enteric Reflux: None observed. CONCLUSION: 1. No definite uptake within the gallbladder suggesting the possibility of cholecystitis. 2. No common bile duct obstruction. Electronically signed by: Jeffery Gomes MD 02/14/2018 12:07 PM EDT
--- NOTE | 2018-02-14 13:25 | P.PNGI ---
Subjective Interval history: Pt is resting in bed, states the pain is less today, has pain with deep breath, no nausea or vomiting. Had URQ pain upon palpation <Mendoza Guerra - Last Filed: 02/14/18 13:19> Physical Exam Vital signs: Vital Signs 02/13/18 14:00 02/13/18 15:00 02/13/18 16:00 Temperature 98.4 F Pulse Rate 73 78 74 Respiratory Rate 20 Blood Pressure 126/82 Pulse Oximetry 96 02/13/18 17:00 02/13/18 18:00 02/13/18 20:00 Temperature 98.2 F Pulse Rate 76 78 67 Respiratory Rate 22 Blood Pressure 121/79 Pulse Oximetry 96 02/14/18 00:00 02/14/18 04:00 02/14/18 08:00 Temperature 98.8 F 98.3 F 98.4 F Pulse Rate 65 79 88 Respiratory Rate 20 20 18 Blood Pressure 112/70 150/89 H 130/79 Pulse Oximetry 95 95 91 L Intake & Output 02/13/18 02/14/18 02/14/18 18:59 06:59 18:59 Intake Total 1425 / 1425 320 / 320 350 / 350 Output Total 850 / 850 Balance 575 / 575 320 / 320 350 / 350 Weight 98.1 kg Intake: IV 350 / 350 350 / 350 Azithromycin Inj 500 MG In NS 250 / 250 Inj 250 ML @ 250 mls/hr IV.SIG Q24H AN[facility]IO Rx#:[id number] Rocephin Inj 1,000 MG In NS Inj 100 / 100 100 ML @ 200 mls/hr IV.SIG Q24H ANTONIO Rx#:[id number] Oral 1075 / 1075 320 / 320 Output: Urine 850 / 850 Other: # Voids 4 Date of Last Bowel Movement 02/13/18 02/14/18 # Bowel Movements 1 - Constitutional no acute distress - Routine HEENT Exam Head: Present: normocephalic - Routine Neck Exam Present: supple - Routine Respiratory Exam Present: CTA bilaterally - Routine Cardiovascular Exam Present: irregularly irregular - Routine Abdominal Exam Present: soft, normoactive bowel sounds, tenderness - Routine Extremities Exam Absent: cyanosis, edema - Routine Skin Exam Present: intact, dry. Absent: jaundice - Routine Neurological Exam Present: alert, oriented X3 - Routine Psychiatric Exam Present: normal affect <Mendoza Guerra - Last Filed: 02/14/18 13:19> Vital signs: Vital Signs 02/13/18 15:00 02/13/18 16:00 02/13/18 17:00 Temperature 98.4 F Pulse Rate 78 74 76 Respiratory Rate 20 Blood Pressure 126/82 Pulse Oximetry 96 02/13/18 18:00 02/13/18 20:00 02/14/18 00:00 Temperature 98.2 F 98.8 F Pulse Rate 78 67 65 Respiratory Rate 22 20 Blood Pressure 121/79 112/70 Pulse Oximetry 96 95 02/14/18 04:00 02/14/18 08:00 02/14/18 11:00 Temperature 98.3 F 98.4 F 97.8 F Pulse Rate 79 88 103 H Respiratory Rate 20 18 18 Blood Pressure 150/89 H 130/79 132/80 Pulse Oximetry 95 91 L 94 L Intake & Output 02/13/18 02/14/18 02/14/18 18:59 06:59 18:59 Intake Total 1425 / 1425 320 / 320 350 / 350 Output Total 850 / 850 Balance 575 / 575 320 / 320 350 / 350 Weight 98.1 kg Intake: IV 350 / 350 350 / 350 Azithromycin Inj 500 MG In NS 250 / 250 Inj 250 ML @ 250 mls/hr IV.SIG Q24H [facility]IO Rx#:[id number] Rocephin Inj 1,000 MG In NS Inj 100 / 100 100 ML @ 200 mls/hr IV.SIG Q24H ANTONIO Rx#:[id number] Oral 1075 / 1075 320 / 320 Output: Urine 850 / 850 Other: # Voids 4 Date of Last Bowel Movement 02/13/18 02/14/18 # Bowel Movements 1 <SangeetaToshia - Last Filed: 02/14/18 14:35> Results - Labs CBC & Chem 7: 02/12/18 03:29 02/12/18 03:29 Laboratory Results - last 24 hr 02/13/18 13:50 Total Creatine Kinase 86 Troponin I Less than 0.02 L Microbiology 02/10/18 15:30 Blood - Peripheral Aerobic Blood Culture - Preliminary No growth in 4 days 02/10/18 15:30 Blood - Peripheral Anaerobic Blood Culture - Preliminary No growth in 4 days 02/10/18 15:45 Blood - Peripheral Aerobic Blood Culture - Preliminary No growth in 4 days 02/10/18 15:45 Blood - Peripheral Anaerobic Blood Culture - Preliminary No growth in 4 days - Imaging Impressions Abdomen/Pelvis CT 02/13/18 00:00 CONCLUSION: 1. Increasing bilateral pleural effusions. 2. Contracted gallbladder with pericholecystic fluid. Tiny stones again noted. 3. Tortuous abdominal aorta. 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 4. Some wall thickening of the bladder; cystitis would be in the differential. Bile Acid Absorption NM 02/14/18 00:00 CONCLUSION: 1. No definite uptake within the gallbladder suggesting the possibility of cholecystitis. 2. No common bile duct obstruction. <Mendoza Guerra - Last Filed: 02/14/18 13:19> - Labs CBC & Chem 7: 02/12/18 03:29 02/12/18 03:29 Laboratory Results - last 24 hr 02/13/18 13:50 Total Creatine Kinase 86 Troponin I Less than 0.02 L Microbiology 02/10/18 15:30 Blood - Peripheral Aerobic Blood Culture - Preliminary No growth in 4 days 02/10/18 15:30 Blood - Peripheral Anaerobic Blood Culture - Preliminary No growth in 4 days 02/10/18 15:45 Blood - Peripheral Aerobic Blood Culture - Preliminary No growth in 4 days 02/10/18 15:45 Blood - Peripheral Anaerobic Blood Culture - Preliminary No growth in 4 days - Imaging Impressions Abdomen/Pelvis CT 02/13/18 00:00 CONCLUSION: 1. Increasing bilateral pleural effusions. 2. Contracted gallbladder with pericholecystic fluid. Tiny stones again noted. 3. Tortuous abdominal aorta. 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 4. Some wall thickening of the bladder; cystitis would be in the differential. Bile Acid Absorption NM 02/14/18 00:00 CONCLUSION: 1. No definite uptake within the gallbladder suggesting the possibility of cholecystitis. 2. No common bile duct obstruction. <Toshia Rutherford - Last Filed: 02/14/18 14:35> Assessment and Plan (1) Anemia Status: Acute Code(s): D64.9 - Anemia, unspecified (2) Epigastric abdominal pain Status: Acute Code(s): R10.13 - Epigastric pain - Plan Epigastric abdominal pain/gastric abdominal pain. Patient denies any nausea or vomiting or dyspepsia or dysphasia. Patient denies any obvious bleeding Abdomen/Pelvis CT 02/13/18 00:00 CONCLUSION: 1. Increasing bilateral pleural effusions. 2. Contracted gallbladder with pericholecystic fluid. Tiny stones again noted. 3. Tortuous abdominal aorta. 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 4. Some wall thickening of the bladder; cystitis would be in the differential. Bile Acid Absorption NM 02/14/18 00:00 CONCLUSION: 1. No definite uptake within the gallbladder suggesting the possibility of cholecystitis. 2. No common bile duct obstruction. ?cholecystitis- on imaging Positive family history of colon cancer his father at the age of 80. No previous EGD or colonoscopy Current treatment regimen atrial fibrillation with RVR initially requiring amiodarone and now on Eliquis since 02/10/2018. Labs on 02/12/18 hemoglobin 10.5, PT/INR 1.3, normal bilirubin and LFTs. Plan Diet as tolerated Await cardiac eval. Monitor labs Protonix Probiotic EGD/colonoscopy after cardiac clearance GS consult Patient was seen per myself and Dr. Rutherford, note was written her behalf <Mendoza Guerra - Last Filed: 02/14/18 13:19> (1) Anemia Status: Acute Code(s): D64.9 - Anemia, unspecified (2) Epigastric abdominal pain Status: Acute Code(s): R10.13 - Epigastric pain - Attending Attestation seen, examined agree with above hida noted-we will consult surgery if no surgery planed egd/colon friday-cardiac clearance <Toshia Rutherford - Last Filed: 02/14/18 14:35>
--- NOTE | 2018-02-14 14:33 | P.PNIM ---
Subjective Interval history: The patient was complaining of some shortness of breath. He was wondering what the imaging studies showed. He had family at the bedside and their questions were answered. Discussed with nursing. Physical Exam Vital signs: Vital Signs 02/13/18 15:00 02/13/18 16:00 02/13/18 17:00 Temperature 98.4 F Pulse Rate 78 74 76 Respiratory Rate 20 Blood Pressure 126/82 Pulse Oximetry 96 02/13/18 18:00 02/13/18 20:00 02/14/18 00:00 Temperature 98.2 F 98.8 F Pulse Rate 78 67 65 Respiratory Rate 22 20 Blood Pressure 121/79 112/70 Pulse Oximetry 96 95 02/14/18 04:00 02/14/18 08:00 02/14/18 11:00 Temperature 98.3 F 98.4 F 97.8 F Pulse Rate 79 88 103 H Respiratory Rate 20 18 18 Blood Pressure 150/89 H 130/79 132/80 Pulse Oximetry 95 91 L 94 L Intake & Output 02/13/18 02/14/18 02/14/18 18:59 06:59 18:59 Intake Total 1425 / 1425 320 / 320 350 / 350 Output Total 850 / 850 Balance 575 / 575 320 / 320 350 / 350 Weight 98.1 kg Intake: IV 350 / 350 350 / 350 Azithromycin Inj 500 MG In NS 250 / 250 Inj 250 ML @ 250 mls/hr IV.SIG Q24H AN[facility]IO Rx#:[id number] Rocephin Inj 1,000 MG In NS Inj 100 / 100 100 ML @ 200 mls/hr IV.SIG Q24H ANTONIO Rx#:[id number] Oral 1075 / 1075 320 / 320 Output: Urine 850 / 850 Other: # Voids 4 Date of Last Bowel Movement 02/13/18 02/14/18 # Bowel Movements 1 Narrative: GENERAL: NAD, HEAD: Normocephalic. NECK: Supple, trachea midline. No lymphadenopathy. EYES: No scleral icterus. No injection or drainage. CARDIOVASCULAR: Regular rate and rhythm without murmurs, gallops, or rubs. RESPIRATORY: Breath sounds equal bilaterally. No accessory muscle use. GASTROINTESTINAL: Abdomen soft, non-tender, nondistended. MUSCULOSKELETAL: No cyanosis, trace-1+ edema lower extremities. SKIN: Warm and dry. NEURO: No focal neurological deficits. Results - Labs CBC & Chem 7: 02/12/18 03:29 02/12/18 03:29 Laboratory Results - last 24 hr 02/13/18 13:50 Total Creatine Kinase 86 Troponin I Less than 0.02 L Microbiology 02/10/18 15:30 Blood - Peripheral Aerobic Blood Culture - Preliminary No growth in 4 days 02/10/18 15:30 Blood - Peripheral Anaerobic Blood Culture - Preliminary No growth in 4 days 02/10/18 15:45 Blood - Peripheral Aerobic Blood Culture - Preliminary No growth in 4 days 02/10/18 15:45 Blood - Peripheral Anaerobic Blood Culture - Preliminary No growth in 4 days - Imaging Impressions Abdomen/Pelvis CT 02/13/18 00:00 CONCLUSION: 1. Increasing bilateral pleural effusions. 2. Contracted gallbladder with pericholecystic fluid. Tiny stones again noted. 3. Tortuous abdominal aorta. 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 4. Some wall thickening of the bladder; cystitis would be in the differential. Bile Acid Absorption NM 02/14/18 00:00 CONCLUSION: 1. No definite uptake within the gallbladder suggesting the possibility of cholecystitis. 2. No common bile duct obstruction. Assessment and Plan - Plan 67-year-old male admitted secondary to pneumonia with A. fib RVR Epigastric pain Gastroenterology consult appreciated. HIDA with ? of cholecystitis. -surgery consult pending. -pain control as needed. -diet per GI. Community-acquired pneumonia -Azithromycin, Rocephin, Probiotics. -Oxygen supplementation. -repeat CXR as complaining of some dyspnea. Atrial fibrillation with RVR Improved on meds. -Continue diltiazem p.o. and metoprolol. -Follow on telemetry -Continue Eliquis -Cardiology following Coronary artery disease Cardiac enzymes within normal limits. -continue cardiac regimen. Hypertension Well controlled. -Adjust treatments as needed -Hold Lisinopril, Added Diltiazem DVT prophylaxis: Abigail
--- NOTE | 2018-02-14 15:34 | XR ---
EXAM DATE: 02/14/2018 3:10 PM EDT AGE/SEX: 67 years / Male INDICATIONS: Shortness of breath. CLINICAL DATA: This is the patient's subsequent encounter. Patient reports that signs and symptoms h ave been present for 2 days and indicates a pain score of 3/10. MEDICAL/SURGICAL HISTORY: Cardiovascular disease. Gastroesophageal reflux disease. Hypertensi on. . Coronary artery stent. COMPARISON: [facility] – [place], CHEST 1V SINGLE AP, 02/10/2018. . FINDINGS: A single AP view of the chest demonstrates the lungs to be symmetrically aerated without evidence of mass, infiltrate or effusion. The previously noted infiltrate in the right lung base has resolved. Th ere is some prominence of the pulmonary vasculature bilaterally suggestive of pulmonary venous conges tion. The cardiomediastinal contours are unremarkable. Osseous structures are intact. CONCLUSION: 1. pulmonary venous congestion. 2. No focal areas of parenchymal consolidation. Electronically signed by: Terrence Serra MD 02/14/2018 3:33 PM EDT
[2018-02-14 15:44] LABS: Calcium 9.3 mg/dL (8.5-10.1); Carbon Dioxide 29.6 meq/L (21.0-32.0); Potassium 3.2 meq/L (3.5-5.1)
--- NOTE | 2018-02-14 16:43 | P.PN ---
Subjective Interval history: I have been asked to see this 67-year-old male who was admitted 4 days ago with shortness of breath, A. fib with RVR and question of right lower lobe pneumonia. Cultures have been negative and he has had his rate controlled with Cardizem now converted over to oral route. He is also on Eliquis. He has been seen by cardiology and he is to follow-up with them in in the office this next week. Patient was noted to have a question of upper abdominal pain and HIDA scan was obtained which demonstrates nonvisualization of the gallbladder. However, the patient states that he has minimal pain throughout his entire abdomen, not just in the right upper quadrant. Physical Exam Vital signs: Vital Signs 02/13/18 17:00 02/13/18 18:00 02/13/18 20:00 Temperature 98.2 F Pulse Rate 76 78 67 Respiratory Rate 22 Blood Pressure 121/79 Pulse Oximetry 96 02/14/18 00:00 02/14/18 04:00 02/14/18 08:00 Temperature 98.8 F 98.3 F 98.4 F Pulse Rate 65 79 88 Respiratory Rate 20 20 18 Blood Pressure 112/70 150/89 H 130/79 Pulse Oximetry 95 95 91 L 02/14/18 11:00 02/14/18 15:39 02/14/18 15:43 Temperature 97.8 F 97.5 F L Pulse Rate 103 H 81 Respiratory Rate 18 18 Blood Pressure 132/80 137/90 Pulse Oximetry 94 L 96 95 Intake & Output 02/13/18 02/14/18 02/14/18 18:59 06:59 18:59 Intake Total 1425 / 1425 320 / 320 350 / 350 Output Total 850 / 850 Balance 575 / 575 320 / 320 350 / 350 Weight 98.1 kg Intake: IV 350 / 350 350 / 350 Azithromycin Inj 500 MG In NS 250 / 250 Inj 250 ML @ 250 mls/hr IV.SIG Q24H [facility]IO Rx#:[id number] Rocephin Inj 1,000 MG In NS Inj 100 / 100 100 ML @ 200 mls/hr IV.SIG Q24H ANTONIO Rx#:[id number] Oral 1075 / 1075 320 / 320 Output: Urine 850 / 850 Other: # Voids 4 Date of Last Bowel Movement 02/13/18 02/14/18 # Bowel Movements 1 - Constitutional no acute distress - Routine HEENT Exam Head: Present: normocephalic ENT: Present: mucous membranes moist - Routine Neck Exam Present: supple - Routine Respiratory Exam Present: CTA bilaterally - Routine Cardiovascular Exam Present: irregularly irregular - Routine Abdominal Exam Present: soft, tenderness (Mild throughout without any localization; no Langston sign by my exam) - Routine Skin Exam Present: intact, vitiligo - Routine Neurological Exam Present: alert, oriented X3 - Detailed Neurological Exam: Coma Scale Verbal Response: Oriented - Routine Psychiatric Exam Present: normal affect Results - Labs CBC & Chem 7: 02/12/18 03:29 02/14/18 14:29 Laboratory Results - last 24 hr 02/14/18 14:29 Sodium 140 Potassium 3.2 L Chloride 102 Carbon Dioxide 29.6 Anion Gap 8 BUN 10 Creatinine 1.14 Estimated GFR 64 L Random Glucose 104 Calcium 9.3 Microbiology 02/10/18 15:30 Blood - Peripheral Aerobic Blood Culture - Preliminary No growth in 4 days 02/10/18 15:30 Blood - Peripheral Anaerobic Blood Culture - Preliminary No growth in 4 days 02/10/18 15:45 Blood - Peripheral Aerobic Blood Culture - Preliminary No growth in 4 days 02/10/18 15:45 Blood - Peripheral Anaerobic Blood Culture - Preliminary No growth in 4 days - Imaging Impressions Abdomen/Pelvis CT 02/13/18 00:00 CONCLUSION: 1. Increasing bilateral pleural effusions. 2. Contracted gallbladder with pericholecystic fluid. Tiny stones again noted. 3. Tortuous abdominal aorta. 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 4. Some wall thickening of the bladder; cystitis would be in the differential. Bile Acid Absorption NM 02/14/18 00:00 CONCLUSION: 1. No definite uptake within the gallbladder suggesting the possibility of cholecystitis. 2. No common bile duct obstruction. Chest X-Ray 02/14/18 00:00 CONCLUSION: 1. pulmonary venous congestion. 2. No focal areas of parenchymal consolidation. Assessment and Plan - Assessment (1) Bilateral pleural effusion Code(s): J90 - Pleural effusion, not elsewhere classified Status: Acute (2) Atrial fibrillation with RVR Code(s): I48.91 - Unspecified atrial fibrillation Status: Acute (3) Community acquired pneumonia Code(s): J18.9 - Pneumonia, unspecified organism Status: Acute (4) Coronary artery disease Code(s): I25.10 - Atherosclerotic heart disease of [place] coronary artery without angina pectoris Status: Acute - Plan Multiple medical problems with physical findings not correlated with the HIDA scan. Given his cardiac disease and pulmonary problems, any surgical intervention would be high risk. If he continues to have pain and anyone feels strongly that it is the gallbladder, cholecystostomy tube would be more in order as general anesthesia would be high risk at this point. Discussed with both Dr. Rutherford and Dr. Sosa. We will follow peripherally. Thank you for this interesting consult. Discussed Condition With: Patient Dr. Sangeeta Sosa
[2018-02-14 16:46] LABS: Albumin 3.4 g/dL (3.4-5.0)
[2018-02-14] MEDS: Azithromycin Inj 500 MG in Sodium Chlor 0.9% Inj 250 ML IV.SIG SCH (16:46)
[2018-02-14 16:48] LABS: Total Protein 7.6 g/dL (6.4-8.2)
--- NOTE | 2018-02-14 16:52 | P.CON ---
History of Present Illness Consult date: 02/14/18 Requesting Physician: Toshia Rutherford Reason for Consult: Nonvisualization GB Primary Care Provider: UNKNOWN Chief Complaint: Shortness of breath and chest tightness over the last 3-4 days History of Present Illness: Patient is a 67-year-old male who was admitted on February 10 with shortness of breath and chest pain. He was found to have A. fib with RVR and started on Cardizem drip. The patient was also complaining of lower abdominal pain that radiated up to his chest. He was initially found to have question of a right lower lobe infiltrate as well. Patient has been treated for the last 4 days and has had rate control with Cardizem converted to p.o. He is also on Eliquis and this is been recommended to be continued by cardiology. Patient was then complaining of upper abdominal pain and a HIDA scan was obtained which demonstrates nonvisualization of the gallbladder. However, he has a normal white count, and normal liver function tests. He does not have any gallstones by imaging to this point. Review of Systems Cardiovascular: Reports chest pain, Denies chest pain at rest, Denies chest pain with activity, Denies excessive sweating, Denies fainting, Denies fast heart rate, Denies foot swelling, Denies generalized swelling, Denies irregular heart rhythm, Denies leg pain with activity, Denies leg sores, Denies leg swelling, Denies lightheadedness, Denies radiating jaw, neck or arm pain, Denies rapid, pounding, or irregular heartbeat, Denies shortness of breath, Denies shortness of breath with activity, Denies shortness of breath when lying down, Denies shortness of breath causing sudden awakening, Denies slow heart rate, Denies other Respiratory: Reports shortness of breath Gastrointestinal: Reports abdominal pain (Shiley lower abdomen now diffusely throughout all 4 quadrants) PMFSH - History History Provided By: Patient - Medical History Medical History: Medical History (Last Updated 02/10/18 @ 12:59 by [email or web address]) CAD (coronary artery disease) HTN (hypertension) - Surgical History Surgical History: Surgical History (Last Updated 02/10/18 @ 12:59 by [email or web address]) H/O heart artery stent History of cardiac cath - Tobacco History Second Hand Smoke Exposure: No Tobacco Use In Past 30 Days: No Smoking Status: Former smoker Tobacco Type: Cigarettes - Alcohol History How Often Do You Have a Drink Containing Alcohol: Never - Substance Use History Substance History: No History of Abuse - Travel History Recent Travel in the [place] Within the Last 8 Weeks: No Recent Travel Out of the Country Within the Last 8 Weeks: No - Immunization History Tetanus Immunization: >5 Years Hx Influenza Vaccine This Season: No Medications and Allergies Active Medications: Active Medications Al Hydroxide/Mg Hydroxide (Milk Of Magnesia Liq) 30 ml PO Q12H PRN PRN Reason: Mild Constipation Apixaban (Eliquis) 5 mg PO BID [facility] Last Admin: 02/14/18 09:11 Dose: 5 mg Atorvastatin Calcium (Lipitor) 80 mg PO DAILY [facility] Last Admin: 02/14/18 09:10 Dose: 80 mg Bisacodyl (Dulcolax Supp) 10 mg RECTAL DAILY PRN PRN Reason: SEVERE CONSITIPATION Last Admin: 02/13/18 08:52 Dose: 10 mg Cyanocobalamin (Vitamin B12) 1,000 mcg PO DAILY [facility] Last Admin: 02/14/18 09:10 Dose: 1,000 mcg Diltiazem HCl (Cardizem) 90 mg PO QID [facility] Last Admin: 02/14/18 12:26 Dose: 90 mg Famotidine (Pepcid) 20 mg PO DAILY [facility] Last Admin: 02/14/18 09:10 Dose: 20 mg Folic Acid (Folic Acid) 1 mg PO DAILY [facility] Last Admin: 02/14/18 09:10 Dose: 1 mg Azithromycin 500 mg/ Sodium (Chloride) 250 mls @ 250 mls/hr IV.SIG Q24H [facility] Last Infusion: 02/13/18 17:30 Dose: Infused Ceftriaxone Sodium 1,000 mg/ (Sodium Chloride) 100 mls @ 200 mls/hr IV.SIG Q24H [facility] Last Admin: 02/14/18 15:36 Dose: 200 mls/hr Lactobacillus Acidophilus (Lactinex) 1 tab PO TID [facility] Last Admin: 02/14/18 12:26 Dose: 1 tab Lactulose (Lactulose Liq) 30 ml PO DAILY PRN PRN Reason: SEVERE CONSITIPATION Levothyroxine Sodium (Synthroid) 25 mcg PO DAILY@0600 [facility] Last Admin: 02/14/18 07:32 Dose: Not Given Metoprolol Succinate (Toprol Xl) 100 mg PO DAILY [facility] Last Admin: 02/14/18 09:10 Dose: 100 mg Nitroglycerin (Nitrostat Sl) 0.4 mg SL Q5M PRN PRN Reason: CHEST PAIN Ondansetron HCl (Zofran Inj) 4 mg IV.PUSH Q6H PRN PRN Reason: NAUSEA OR VOMITING Last Admin: 02/10/18 17:19 Dose: 4 mg Senna/Docusate Sodium (Janey-Colace) 1 tab PO BID [facility] Last Admin: 02/14/18 09:11 Dose: 1 tab Sennosides (Senokot) 17.2 mg PO Q12H PRN PRN Reason: Moderate Constipation Last Admin: 02/13/18 05:25 Dose: 17.2 mg Sodium Chloride (Ns Flush) 2 ml IV.FLUSH PRN PRN PRN Reason: FLUSH AFTER USING IV ACCESS Sodium Chloride (Ns Flush) 2 ml IV.FLUSH BID [facility] Last Admin: 02/14/18 09:11 Dose: 2 ml Temazepam (Restoril) 15 mg PO HS PRN PRN Reason: INSOMNIA Allergies Allergy/AdvReac Type Severity Reaction Status Date / Time No Known Allergies Allergy Unverified 02/10/18 12:52 Home Medications Medication Instructions Recorded Confirmed Type apixaban [Eliquis] 5 mg PO BID 02/10/18 02/10/18 History atorvastatin 80 mg PO DAILY 02/10/18 02/10/18 History cyanocobalamin (vitamin B-12) 1,000 mcg PO DAILY 02/10/18 02/10/18 History [Vitamin B-12] famotidine 20 mg PO DAILY 02/10/18 02/10/18 History folic acid 1 mg PO DAILY 02/10/18 02/10/18 History levothyroxine 25 mcg PO DAILY 02/10/18 02/10/18 History lisinopril 20 mg PO DAILY 02/10/18 02/10/18 History metoprolol succinate 100 mg PO DAILY 02/10/18 02/10/18 History Physical Exam Vital signs: Vital Signs 02/13/18 17:00 02/13/18 18:00 02/13/18 20:00 Temperature 98.2 F Pulse Rate 76 78 67 Respiratory Rate 22 Blood Pressure 121/79 Pulse Oximetry 96 02/14/18 00:00 02/14/18 04:00 02/14/18 08:00 Temperature 98.8 F 98.3 F 98.4 F Pulse Rate 65 79 88 Respiratory Rate 20 20 18 Blood Pressure 112/70 150/89 H 130/79 Pulse Oximetry 95 95 91 L 02/14/18 11:00 02/14/18 15:39 02/14/18 15:43 Temperature 97.8 F 97.5 F L Pulse Rate 103 H 81 Respiratory Rate 18 18 Blood Pressure 132/80 137/90 Pulse Oximetry 94 L 96 95 Intake & Output 02/13/18 02/14/18 02/14/18 18:59 06:59 18:59 Intake Total 1425 / 1425 320 / 320 350 / 350 Output Total 850 / 850 Balance 575 / 575 320 / 320 350 / 350 Weight 98.1 kg Intake: IV 350 / 350 350 / 350 Azithromycin Inj 500 MG In NS 250 / 250 Inj 250 ML @ 250 mls/hr IV.SIG Q24H [facility] Rx#:[id number] Rocephin Inj 1,000 MG In NS Inj 100 / 100 100 ML @ 200 mls/hr IV.SIG Q24H [facility] Rx#:[id number] Oral 1075 / 1075 320 / 320 Output: Urine 850 / 850 Other: # Voids 4 Date of Last Bowel Movement 02/13/18 02/14/18 # Bowel Movements 1 - Constitutional no acute distress - Routine HEENT Exam Head: Present: normocephalic, atraumatic - Routine Neck Exam Present: supple - Routine Respiratory Exam Present: CTA bilaterally - Routine Cardiovascular Exam Present: irregular rhythm, irregularly irregular - Routine Abdominal Exam Present: soft, tenderness (Mild in all 4 quadrants; no guarding or rebound; no positive Langston sign) - Routine Skin Exam Present: intact, vitiligo - Routine Neurological Exam Present: alert - Detailed Neurological Exam: Coma Scale Verbal Response: Oriented Assessment and Plan - Assessment (1) Bilateral pleural effusion Code(s): J90 - Pleural effusion, not elsewhere classified Status: Acute (2) Atrial fibrillation with RVR Code(s): I48.91 - Unspecified atrial fibrillation Status: Acute (3) Community acquired pneumonia Code(s): J18.9 - Pneumonia, unspecified organism Status: Acute (4) Coronary artery disease Code(s): I25.10 - Atherosclerotic heart disease of [place] coronary artery without angina pectoris Status: Acute - Plan 1. Recent admission for atrial fibrillation with rapid ventricular rate controlled with Cardizem drip now converted to oral Cardizem. On anticoagulation with Eliquis; recommended by cardiology to continue on this. 2. Right lower lobe pneumonia, appears clearing 3. Bilateral pleural effusions, worsening on last imaging study. Patient is reporting some shortness of breath. 4. Coronary artery disease with recent stent placement in January. Patient will need cardiology risk assessment, and I would assume that it would be high risk given his recent findings and problems. If it appears that patient 's biliary system is causing issues, I would recommend cholecystostomy tube acutely. He is not a good candidate for any surgical procedure or general anesthesia for at least the next 4-6 weeks. - Attending Attestation I attest that I had a [id number] encounter with the patient on the same day, and personally performed and documented my assessment and findings in the medical record. The following services were provided during this hospital visit: Chart data review, vital sign assessments/reviewing monitor data Review of consultation notes if present Medication orders/review and/or management Ordering and/or reviewing lab tests Ordering and/or interpreting/reviewing x-rays and/or diagnostic studies Care of the patient and discussion of the patient with the care team Documentation time To help prompt me to consider important information that might be impacting today's encounter and assessment, Information from prior notes written by myself or my colleagues may have been "brought forward/copy and pasted" into today's note.
--- NOTE | 2018-02-15 08:22 | US ---
EXAM DATE: 02/15/2018 8:02 AM EDT AGE/SEX: 67 years / Male INDICATIONS: Right upper quadrant pain. CLINICAL DATA: This is the patient's initial encounter. Patient reports that signs and symptoms have been present for 4 - 6 days and indicates a pain score of 3/10. MEDICAL/SURGICAL HISTORY: Hypertension. Coronary artery disease. . Cardiac stent. Cardiac cath eter. COMPARISON: [facility] [place], CT ABDOMEN & PELVIS W CONTRAST, 02/13/2018. . MEASUREMENTS: Liver:__ 14.5 cm. Common Bile Duct:__ 4mm. FINDINGS: Liver: Increased echotexture without focal lesion or ductal dilation. Portal Vein: Hepatopedal flow seen in portal vein. Common Duct: No intraluminal mass or stone visualized. Gallbladder: Echogenic foci seen within the gallbladder measuring 6 x 8 x 5 mm. Mild wall thickening without pericholecystic fluid. Pancreas: Not well visualized. Right Kidney: Normal echotexture and cortical thickness. No mass or hydronephrosis. Other: Pleural effusion seen in the right hemithorax. CONCLUSION: 1. Echogenic liver which can be seen with hepatic steatosis. 2. Echogenic focus in the gallbladder could be gallstone versus polyp. There is gallbladder wall thi ckening. No pericholecystic fluid. 3. Small right pleural effusion. Electronically signed by: Jeffery Gomes MD 02/15/2018 8:21 AM EDT
[2018-02-15] MEDS: Famotidine 20 MG Tablet PO SCH (08:52)
[2018-02-15] MEDS: Senna/Docusate Sodium 8.6/50 MG Tablet PO SCH ×2 (08:53→23:28)
[2018-02-15] MEDS: Lactobacillus Acidophilus/L. Spores Tablet PO SCH ×3 (08:53→18:08)
[2018-02-15] MEDS: Folic Acid 1 MG Tablet PO SCH (08:53)
--- NOTE | 2018-02-15 11:20 | P.PNGS ---
Subjective Patient reports: feels better (pain less, mild epigastric ruq pain) Physical Exam Vital signs: Vital Signs 02/14/18 15:39 02/14/18 15:43 02/14/18 19:11 Temperature 97.5 F L Pulse Rate 81 85 Respiratory Rate 18 Blood Pressure 137/90 Pulse Oximetry 96 95 02/14/18 20:00 02/15/18 00:00 02/15/18 00:07 Temperature 97.8 F 97.2 F L Pulse Rate 81 74 85 Respiratory Rate 17 17 Blood Pressure 135/89 126/80 Pulse Oximetry 96 96 02/15/18 04:00 02/15/18 08:00 Temperature 98.2 F 98.2 F Pulse Rate 71 83 Respiratory Rate 17 18 Blood Pressure 138/77 127/81 Pulse Oximetry 96 95 Intake & Output 02/14/18 02/15/18 02/15/18 18:59 06:59 18:59 Intake Total 1660 / 1660 240 / 240 Balance 1660 / 1660 240 / 240 Intake: IV 700 / 700 Azithromycin Inj 500 MG In NS 250 / 250 Inj 250 ML @ 250 mls/hr IV.SIG Q24H [facility] Rx#:[id number] Rocephin Inj 1,000 MG In NS Inj 100 / 100 100 ML @ 200 mls/hr IV.SIG Q24H [facility] Rx#:[id number] Oral 960 / 960 240 / 240 Other: # Voids 4 2 Date of Last Bowel Movement 02/14/18 02/13/18 02/14/18 - Routine Respiratory Exam Present: CTA bilaterally - Routine Abdominal Exam Present: soft (mild ttp, ruq, epigastric) Assessment and Plan - Assessment (1) Bilateral pleural effusion Code(s): J90 - Pleural effusion, not elsewhere classified Status: Acute Plan: r/o acute cholecystitis multiple medical issues plan diet as tolerated reviewed us showing gb wall thickening, possible small polyp 6mm pt appears to be clinically improving, no pain related to po intake may benefit from us in 6 months for polyp eval continue non op mgnt (2) Atrial fibrillation with RVR Code(s): I48.91 - Unspecified atrial fibrillation Status: Acute (3) Community acquired pneumonia Code(s): J18.9 - Pneumonia, unspecified organism Status: Acute (4) Coronary artery disease Code(s): I25.10 - Atherosclerotic heart disease of [place] coronary artery without angina pectoris Status: Acute
--- NOTE | 2018-02-15 14:27 | P.PNGI ---
Subjective Interval history: Pt is resting in bed, having mild RUQ pain, but not bad, no nausea, no vomiting. <Mendoza Guerra - Last Filed: 02/15/18 14:21> Physical Exam Vital signs: Vital Signs 02/14/18 15:39 02/14/18 15:43 02/14/18 19:11 Temperature 97.5 F L Pulse Rate 81 85 Respiratory Rate 18 Blood Pressure 137/90 Pulse Oximetry 96 95 02/14/18 20:00 02/15/18 00:00 02/15/18 00:07 Temperature 97.8 F 97.2 F L Pulse Rate 81 74 85 Respiratory Rate 17 17 Blood Pressure 135/89 126/80 Pulse Oximetry 96 96 02/15/18 04:00 02/15/18 08:00 02/15/18 11:00 Temperature 98.2 F 98.2 F 98.1 F Pulse Rate 71 83 78 Respiratory Rate 17 18 18 Blood Pressure 138/77 127/81 99/64 L Pulse Oximetry 96 95 99 Intake & Output 02/14/18 02/15/18 02/15/18 18:59 06:59 18:59 Intake Total 1660 / 1660 240 / 240 Balance 1660 / 1660 240 / 240 Intake: IV 700 / 700 Azithromycin Inj 500 MG In NS 250 / 250 Inj 250 ML @ 250 mls/hr IV.SIG Q24H [facility] Rx#:[id number] Rocephin Inj 1,000 MG In NS Inj 100 / 100 100 ML @ 200 mls/hr IV.SIG Q24H [facility] Rx#:[id number] Oral 960 / 960 240 / 240 Other: # Voids 4 2 Date of Last Bowel Movement 02/14/18 02/13/18 02/14/18 - Constitutional no acute distress - Routine HEENT Exam Head: Present: normocephalic - Routine Respiratory Exam Present: CTA bilaterally - Routine Cardiovascular Exam Present: RRR - Routine Abdominal Exam Present: soft, normoactive bowel sounds, tenderness - Routine Extremities Exam Absent: cyanosis, clubbing - Routine Skin Exam Present: intact, dry. Absent: jaundice - Routine Neurological Exam Present: alert, oriented X3 - Routine Psychiatric Exam Present: normal affect <Mendoza Guerra - Last Filed: 02/15/18 14:21> Vital signs: Vital Signs 02/14/18 19:11 02/14/18 20:00 02/15/18 00:00 Temperature 97.8 F 97.2 F L Pulse Rate 85 81 74 Respiratory Rate 17 17 Blood Pressure 135/89 126/80 Pulse Oximetry 96 96 02/15/18 00:07 02/15/18 04:00 02/15/18 08:00 Temperature 98.2 F 98.2 F Pulse Rate 85 71 83 Respiratory Rate 17 18 Blood Pressure 138/77 127/81 Pulse Oximetry 96 95 02/15/18 11:00 02/15/18 15:00 Temperature 98.1 F 98.5 F Pulse Rate 78 66 Respiratory Rate 18 18 Blood Pressure 99/64 L 115/73 Pulse Oximetry 99 95 Intake & Output 02/14/18 02/15/18 02/15/18 18:59 06:59 18:59 Intake Total 1660 / 1660 240 / 240 100 / 100 Balance 1660 / 1660 240 / 240 100 / 100 Intake: IV 700 / 700 100 / 100 Azithromycin Inj 500 MG In NS 250 / 250 Inj 250 ML @ 250 mls/hr IV.SIG Q24H [facility] Rx#:[id number] Rocephin Inj 1,000 MG In NS Inj 100 / 100 100 / 100 100 ML @ 200 mls/hr IV.SIG Q24H [facility] Rx#:[id number] Oral 960 / 960 240 / 240 Other: # Voids 4 2 Date of Last Bowel Movement 02/14/18 02/13/18 02/14/18 <Toshia Rutherford - Last Filed: 02/15/18 17:09> Results - Labs CBC & Chem 7: 02/12/18 03:29 02/14/18 14:29 Laboratory Results - last 24 hr 02/14/18 02/14/18 02/15/18 14:29 14:29 06:24 Sodium 140 Potassium 3.2 L Chloride 102 Carbon Dioxide 29.6 Anion Gap 8 BUN 10 Creatinine 1.14 Estimated GFR 64 L Random Glucose 104 Calcium 9.3 Magnesium 1.4 L Total Bilirubin 0.6 Direct Bilirubin 0.1 Indirect Bilirubin 0.5 AST 19 ALT 14 Alkaline Phosphatase 104 Total Protein 7.6 D Albumin 3.4 Microbiology 02/10/18 15:30 Blood - Peripheral Aerobic Blood Culture - Final No growth in 5 days 02/10/18 15:30 Blood - Peripheral Anaerobic Blood Culture - Final No growth in 5 days 02/10/18 15:45 Blood - Peripheral Aerobic Blood Culture - Final No growth in 5 days 02/10/18 15:45 Blood - Peripheral Anaerobic Blood Culture - Final No growth in 5 days - Imaging Impressions Chest X-Ray 02/14/18 00:00 CONCLUSION: 1. pulmonary venous congestion. 2. No focal areas of parenchymal consolidation. Gallbladder Ultrasound 02/15/18 00:00 CONCLUSION: 1. Echogenic liver which can be seen with hepatic steatosis. 2. Echogenic focus in the gallbladder could be gallstone versus polyp. There is gallbladder wall thickening. No pericholecystic fluid. 3. Small right pleural effusion. <Mendoza Guerra - Last Filed: 02/15/18 14:21> - Labs CBC & Chem 7: 02/12/18 03:29 02/14/18 14:29 Laboratory Results - last 24 hr 02/15/18 06:24 Magnesium 1.4 L Microbiology 02/10/18 15:30 Blood - Peripheral Aerobic Blood Culture - Final No growth in 5 days 02/10/18 15:30 Blood - Peripheral Anaerobic Blood Culture - Final No growth in 5 days 02/10/18 15:45 Blood - Peripheral Aerobic Blood Culture - Final No growth in 5 days 02/10/18 15:45 Blood - Peripheral Anaerobic Blood Culture - Final No growth in 5 days - Imaging Impressions Gallbladder Ultrasound 02/15/18 00:00 CONCLUSION: 1. Echogenic liver which can be seen with hepatic steatosis. 2. Echogenic focus in the gallbladder could be gallstone versus polyp. There is gallbladder wall thickening. No pericholecystic fluid. 3. Small right pleural effusion. <Toshia Rutherford - Last Filed: 02/15/18 17:09> Assessment and Plan (1) Anemia Status: Acute Code(s): D64.9 - Anemia, unspecified (2) Epigastric abdominal pain Status: Acute Code(s): R10.13 - Epigastric pain - Plan Epigastric abdominal pain/gastric abdominal pain. Patient denies any nausea or vomiting or dyspepsia or dysphasia. Patient denies any obvious bleeding Abdomen/Pelvis CT 02/13/18 00:00 CONCLUSION: 1. Increasing bilateral pleural effusions. 2. Contracted gallbladder with pericholecystic fluid. Tiny stones again noted. 3. Tortuous abdominal aorta. 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 4. Some wall thickening of the bladder; cystitis would be in the differential. Bile Acid Absorption NM 02/14/18 00:00 CONCLUSION: 1. No definite uptake within the gallbladder suggesting the possibility of cholecystitis. 2. No common bile duct obstruction. ?cholecystitis- on imaging, GS on the case, no plans for surgical intervention Positive family history of colon cancer his father at the age of 80. No previous EGD or colonoscopy Current treatment regimen atrial fibrillation with RVR initially requiring amiodarone and now on Eliquis since 02/10/2018. Labs on 02/12/18 hemoglobin 10.5, PT/INR 1.3, normal bilirubin and LFTs. Plan Diet as tolerated Await cardiac eval. Monitor labs Protonix Probiotic EGD/colonoscopy after cardiac clearance GS on the case, no plans for surgery Consider cholecystostomy tube Patient was seen per myself and Dr. Rutherford, note was written her behalf <Mendoza Guerra - Last Filed: 02/15/18 14:21> (1) Anemia Status: Acute Code(s): D64.9 - Anemia, unspecified (2) Epigastric abdominal pain Status: Acute Code(s): R10.13 - Epigastric pain - Attending Attestation seen, examined agree with above <Toshia Rutherford - Last Filed: 02/15/18 17:09>
[2018-02-15] MEDS: Azithromycin Inj 500 MG in Sodium Chlor 0.9% Inj 250 ML IV.SIG SCH (16:03)
[2018-02-15] MEDS ORDERED: Potassium Chloride 25 MEQ Effervescent Tablet PO ONE (16:35)
--- NOTE | 2018-02-15 16:42 | P.PNIM ---
Subjective Interval history: The patient was resting comfortably in bed. He said that he still had abdominal pain. He said that he would have abdominal spasms about every half hour that makes it hard for him to breathe. He had no other acute complaints. Discussed with nursing. Physical Exam Vital signs: Vital Signs 02/14/18 19:11 02/14/18 20:00 02/15/18 00:00 Temperature 97.8 F 97.2 F L Pulse Rate 85 81 74 Respiratory Rate 17 17 Blood Pressure 135/89 126/80 Pulse Oximetry 96 96 02/15/18 00:07 02/15/18 04:00 02/15/18 08:00 Temperature 98.2 F 98.2 F Pulse Rate 85 71 83 Respiratory Rate 17 18 Blood Pressure 138/77 127/81 Pulse Oximetry 96 95 02/15/18 11:00 02/15/18 15:00 Temperature 98.1 F 98.5 F Pulse Rate 78 66 Respiratory Rate 18 18 Blood Pressure 99/64 L 115/73 Pulse Oximetry 99 95 Intake & Output 02/14/18 02/15/18 02/15/18 18:59 06:59 18:59 Intake Total 1660 / 1660 240 / 240 100 / 100 Balance 1660 / 1660 240 / 240 100 / 100 Intake: IV 700 / 700 100 / 100 Azithromycin Inj 500 MG In NS 250 / 250 Inj 250 ML @ 250 mls/hr IV.SIG Q24H [facility] Rx#:[id number] Rocephin Inj 1,000 MG In NS Inj 100 / 100 100 / 100 100 ML @ 200 mls/hr IV.SIG Q24H [facility] Rx#:[id number] Oral 960 / 960 240 / 240 Other: # Voids 4 2 Date of Last Bowel Movement 02/14/18 02/13/18 02/14/18 Narrative: GENERAL: NAD, HEAD: Normocephalic. NECK: Supple, trachea midline. No lymphadenopathy. EYES: No scleral icterus. No injection or drainage. CARDIOVASCULAR: Regular rate and rhythm without murmurs, gallops, or rubs. RESPIRATORY: Breath sounds equal bilaterally. No accessory muscle use. GASTROINTESTINAL: Abdomen soft, mild diffuse tenderness, nondistended. MUSCULOSKELETAL: No cyanosis, trace-1+ edema lower extremities. SKIN: Warm and dry. NEURO: No focal neurological deficits. Results - Labs CBC & Chem 7: 02/12/18 03:29 02/14/18 14:29 Laboratory Results - last 24 hr 02/14/18 02/15/18 14:29 06:24 Magnesium 1.4 L Total Bilirubin 0.6 Direct Bilirubin 0.1 Indirect Bilirubin 0.5 AST 19 ALT 14 Alkaline Phosphatase 104 Total Protein 7.6 D Albumin 3.4 Microbiology 02/10/18 15:30 Blood - Peripheral Aerobic Blood Culture - Final No growth in 5 days 02/10/18 15:30 Blood - Peripheral Anaerobic Blood Culture - Final No growth in 5 days 02/10/18 15:45 Blood - Peripheral Aerobic Blood Culture - Final No growth in 5 days 02/10/18 15:45 Blood - Peripheral Anaerobic Blood Culture - Final No growth in 5 days - Imaging Impressions Gallbladder Ultrasound 02/15/18 00:00 CONCLUSION: 1. Echogenic liver which can be seen with hepatic steatosis. 2. Echogenic focus in the gallbladder could be gallstone versus polyp. There is gallbladder wall thickening. No pericholecystic fluid. 3. Small right pleural effusion. Assessment and Plan - Plan 67-year-old male admitted secondary to pneumonia with A. fib RVR Epigastric pain Gastroenterology consult appreciated. HIDA with ? of cholecystitis. US not indicative of acute cholecystitis. -surgery consult appreciated. Cholecystostomy tube if needed. -pain control as needed. -diet per GI. Will likely pursue EGD. Community-acquired pneumonia -Azithromycin, Rocephin, Probiotics. -Oxygen supplementation. -repeat CXR with mild pulmonary congestion. Atrial fibrillation with RVR Improved on meds. -Continue diltiazem p.o. and metoprolol. -Follow on telemetry -Continue Eliquis -Cardiology following. Will need clearance prior to EGD. Coronary artery disease Cardiac enzymes within normal limits. -continue cardiac regimen. Hypertension Well controlled. -Adjust treatments as needed -Hold Lisinopril, Added Diltiazem DVT prophylaxis: Abigail
[2018-02-15] MEDS: Mag Sulf 1 gm/100 ml Premix 100 ML IV.SIG SCH ×2 (18:09→20:20)
[2018-02-16 08:03] LABS: Hemoglobin 12.4 gm/dL (13.0-17.0); Mean Corpuscular HGB Conc 35.4 % (32.0-36.0); Mean Corpuscular Hemoglobin 34.8 pg (27.0-34.0); Mean Corpuscular Volume 98.3 fL (80.0-100.0); Mean Platelet Volume 8.6 fL (7.0-11.0); Platelet Count 213 th/mm3 (150-450); Red Blood Count 3.56 mil/mm3 (4.50-5.90); Red Cell Distribution Width 14.1 % (11.6-17.2); White Blood Count 7.3 th/mm3 (4.0-11.0)
[2018-02-16 08:20] LABS: Calcium 9.1 mg/dL (8.5-10.1); Carbon Dioxide 26.8 meq/L (21.0-32.0); Magnesium 1.8 mg/dL (1.5-2.5)
[2018-02-16] MEDS: Folic Acid 1 MG Tablet PO SCH (09:42)
[2018-02-16] MEDS: Senna/Docusate Sodium 8.6/50 MG Tablet PO SCH ×2 (09:42→21:33)
[2018-02-16] MEDS: Lactobacillus Acidophilus/L. Spores Tablet PO SCH ×3 (09:42→18:39)
[2018-02-16] MEDS: Famotidine 20 MG Tablet PO SCH (09:42)
--- NOTE | 2018-02-16 09:50 | P.PNGS ---
<Tabitha Carbajal - Last Filed: 02/16/18 09:45> Subjective Interval history: Resting in bed; feels "chest tightness" Physical Exam Vital signs: Vital Signs 02/15/18 11:00 02/15/18 15:00 02/15/18 19:46 Temperature 98.1 F 98.5 F Pulse Rate 78 66 81 Respiratory Rate 18 18 Blood Pressure 99/64 L 115/73 Pulse Oximetry 99 95 02/15/18 20:00 02/15/18 23:39 02/16/18 00:00 Temperature 98.1 F 98.1 F Pulse Rate 82 48 L 70 Respiratory Rate 17 17 Blood Pressure 130/103 H 101/62 Pulse Oximetry 96 98 02/16/18 04:00 02/16/18 04:18 02/16/18 08:00 Temperature 98 F 97.9 F Pulse Rate 75 106 H 78 Respiratory Rate 20 18 Blood Pressure 113/72 124/87 Pulse Oximetry 93 L 94 L 02/16/18 08:27 Temperature Pulse Rate Respiratory Rate Blood Pressure Pulse Oximetry 93 L Intake & Output 02/15/18 02/16/18 02/16/18 18:59 06:59 18:59 Intake Total 1310 / 1310 100 / 100 100 / 100 Output Total 100 / 100 Balance 1310 / 1310 0 / 0 100 / 100 Intake: IV 350 / 350 100 / 100 100 / 100 Azithromycin Inj 500 MG In NS 250 / 250 Inj 250 ML @ 250 mls/hr IV.SIG Q24H [facility] Rx#:[id number] Magnesium Sulfate 1 gm/D5W 100 100 / 100 ml Premix 100 ML @ 100 mls/hr IV.SIG Q1H [facility] Rx#:[id number] Rocephin Inj 1,000 MG In NS Inj 100 / 100 100 ML @ 200 mls/hr IV.SIG Q24H [facility] Rx#:[id number] Oral 960 / 960 Output: Urine 100 / 100 Other: # Voids 4 Date of Last Bowel Movement 02/14/18 # Bowel Movements 0 Narrative: Alert and awake Cardio: RRR Resp: CTAB Abd: Very faint tenderness in RUQ with palpation Assessment and Plan - Assessment (1) Bilateral pleural effusion Code(s): J90 - Pleural effusion, not elsewhere classified Status: Acute (2) Atrial fibrillation with RVR Code(s): I48.91 - Unspecified atrial fibrillation Status: Acute (3) Community acquired pneumonia Code(s): J18.9 - Pneumonia, unspecified organism Status: Acute (4) Coronary artery disease Code(s): I25.10 - Atherosclerotic heart disease of [place] coronary artery without angina pectoris Status: Acute (5) Abdominal pain Code(s): R10.9 - Unspecified abdominal pain Status: Acute Plan: 67 year old male with atrial fibrillation; on Eliquis; r/o acute cholecystitis -Continue diet as tolerated -US showing gallbladder wall thickening, possible small polyp 6mm -Abdominal exam improving; WBC normal -Patient is a poor surgical candidate at this time due to atrial fibrillation and use of OAC -Will continue to follow; if concern for developing cholecystis--would consider cholecystostomy tube <Praveen Edouard - Last Filed: 02/18/18 15:02> Physical Exam Vital signs: Vital Signs 02/17/18 16:03 02/17/18 18:17 02/17/18 19:00 Temperature 98.2 F 97.8 F Pulse Rate 94 H 79 Respiratory Rate 18 21 Blood Pressure 113/75 110/73 Pulse Oximetry 94 L 94 L 95 02/17/18 23:00 02/18/18 05:22 02/18/18 08:00 Temperature 98.2 F 97.7 F 98.1 F Pulse Rate 69 78 80 Respiratory Rate 19 20 16 Blood Pressure 104/68 114/47 L 117/80 Pulse Oximetry 94 L 94 L 95 Intake & Output 02/17/18 02/18/18 02/18/18 18:59 06:59 18:59 Intake Total 1250 / 1250 600 / 600 Output Total Balance 1250 / 1250 599 / 599 Weight 98.4 kg Intake: IV 350 / 350 Azithromycin Inj 500 MG In NS 250 / 250 Inj 250 ML @ 250 mls/hr IV.SIG Q24H [facility] Rx#:[id number] Rocephin Inj 1,000 MG In NS Inj 100 / 100 100 ML @ 200 mls/hr IV.SIG Q24H [facility] Rx#:[id number] Oral 600 / 600 600 / 600 Anesthesia Amount 300 / 300 Output: Stool Other: # Voids 2 2 Date of Last Bowel Movement 02/16/18 02/16/18 Assessment and Plan - Assessment (1) Bilateral pleural effusion Code(s): J90 - Pleural effusion, not elsewhere classified Status: Acute (2) Atrial fibrillation with RVR Code(s): I48.91 - Unspecified atrial fibrillation Status: Acute (3) Community acquired pneumonia Code(s): J18.9 - Pneumonia, unspecified organism Status: Acute (4) Coronary artery disease Code(s): I25.10 - Atherosclerotic heart disease of [place] coronary artery without angina pectoris Status: Acute (5) Abdominal pain Code(s): R10.9 - Unspecified abdominal pain Status: Acute Plan: For EGD in a.m. We will await results. After testing, will give patient a trial of diet. If he continues to have any pain, will address surgical versus nonoperative intervention. The exam, history, and the medical decision-making described in the above note were completed with the assistance of the mid-level provider. I reviewed and agree with the findings presented. I attest that I had a [id number] encounter with the patient on the same day, and personally performed and documented my assessment and findings in the medical record.
--- NOTE | 2018-02-16 11:03 | P.PNGI ---
Subjective Interval history: Pt resting in bed, reports upper abdominal pain described as a squeezing sensation in his upper abdomen. Denies any nausea or vomiting. States BMs are regular since taking stool softeners. <Lelo Cooper - Last Filed: 02/16/18 10:56> Physical Exam Vital signs: Vital Signs 02/15/18 11:00 02/15/18 15:00 02/15/18 19:46 Temperature 98.1 F 98.5 F Pulse Rate 78 66 81 Respiratory Rate 18 18 Blood Pressure 99/64 L 115/73 Pulse Oximetry 99 95 02/15/18 20:00 02/15/18 23:39 02/16/18 00:00 Temperature 98.1 F 98.1 F Pulse Rate 82 48 L 70 Respiratory Rate 17 17 Blood Pressure 130/103 H 101/62 Pulse Oximetry 96 98 02/16/18 04:00 02/16/18 04:18 02/16/18 08:00 Temperature 98 F 97.9 F Pulse Rate 75 106 H 78 Respiratory Rate 20 18 Blood Pressure 113/72 124/87 Pulse Oximetry 93 L 94 L 02/16/18 08:27 Temperature Pulse Rate Respiratory Rate Blood Pressure Pulse Oximetry 93 L Intake & Output 02/15/18 02/16/18 02/16/18 18:59 06:59 18:59 Intake Total 1310 / 1310 100 / 100 100 / 100 Output Total 100 / 100 Balance 1310 / 1310 0 / 0 100 / 100 Intake: IV 350 / 350 100 / 100 100 / 100 Azithromycin Inj 500 MG In NS 250 / 250 Inj 250 ML @ 250 mls/hr IV.SIG Q24H [facility] Rx#:[id number] Magnesium Sulfate 1 gm/D5W 100 100 / 100 ml Premix 100 ML @ 100 mls/hr IV.SIG Q1H [facility] Rx#:[id number] Rocephin Inj 1,000 MG In NS Inj 100 / 100 100 ML @ 200 mls/hr IV.SIG Q24H [facility] Rx#:[id number] Oral 960 / 960 Output: Urine 100 / 100 Other: # Voids 4 Date of Last Bowel Movement 02/14/18 # Bowel Movements 0 - Constitutional no acute distress - Routine HEENT Exam Head: Present: normocephalic, atraumatic - Routine Respiratory Exam Absent: accessory muscle use - Routine Abdominal Exam Present: soft, normoactive bowel sounds, tenderness (upper abdminal/epigastric mild tenderness ). Absent: distended - Routine Skin Exam Present: dry, warm - Routine Neurological Exam Present: alert, oriented X3 <EdsondemetrisLelo - Last Filed: 02/16/18 10:56> Vital signs: Vital Signs 02/15/18 23:39 02/16/18 00:00 02/16/18 04:00 Temperature 98.1 F 98 F Pulse Rate 48 L 70 75 Respiratory Rate 17 20 Blood Pressure 101/62 113/72 Pulse Oximetry 98 93 L 02/16/18 04:18 02/16/18 08:00 02/16/18 08:27 Temperature 97.9 F Pulse Rate 106 H 78 Respiratory Rate 18 Blood Pressure 124/87 Pulse Oximetry 94 L 93 L 02/16/18 11:00 02/16/18 15:00 02/16/18 17:57 Temperature 97.8 F 98.2 F Pulse Rate 102 H 77 Respiratory Rate 18 16 Blood Pressure 126/88 107/66 Pulse Oximetry 96 96 96 Intake & Output 02/16/18 02/16/18 02/17/18 06:59 18:59 06:59 Intake Total 100 / 100 100 / 100 Output Total 100 / 100 Balance 0 / 0 100 / 100 Intake: IV 100 / 100 100 / 100 Magnesium Sulfate 1 gm/D5W 100 100 / 100 ml Premix 100 ML @ 100 mls/hr IV.SIG Q1H [facility] Rx#:[id number] Output: Urine 100 / 100 <CesarioNehemiah - Last Filed: 02/16/18 20:10> Results - Labs CBC & Chem 7: 02/16/18 07:23 02/16/18 07:23 Laboratory Results - last 24 hr 02/16/18 02/16/18 07:23 07:23 WBC 7.3 RBC 3.56 L Hgb 12.4 L Hct 35.0 L MCV 98.3 MCH 34.8 H MCHC 35.4 RDW 14.1 Plt Count 213 MPV 8.6 Sodium 139 Potassium 4.0 D Chloride 104 Carbon Dioxide 26.8 Anion Gap 8 BUN 11 Creatinine 1.03 Estimated GFR 72 L Random Glucose 92 Calcium 9.1 Magnesium 1.8 Microbiology 02/10/18 15:30 Blood - Peripheral Aerobic Blood Culture - Final No growth in 5 days 02/10/18 15:30 Blood - Peripheral Anaerobic Blood Culture - Final No growth in 5 days 02/10/18 15:45 Blood - Peripheral Aerobic Blood Culture - Final No growth in 5 days 02/10/18 15:45 Blood - Peripheral Anaerobic Blood Culture - Final No growth in 5 days <Lelo Cooper - Last Filed: 02/16/18 10:56> - Labs CBC & Chem 7: 02/16/18 07:23 02/16/18 07:23 Laboratory Results - last 24 hr 02/16/18 02/16/18 07:23 07:23 WBC 7.3 RBC 3.56 L Hgb 12.4 L Hct 35.0 L MCV 98.3 MCH 34.8 H MCHC 35.4 RDW 14.1 Plt Count 213 MPV 8.6 Sodium 139 Potassium 4.0 D Chloride 104 Carbon Dioxide 26.8 Anion Gap 8 BUN 11 Creatinine 1.03 Estimated GFR 72 L Random Glucose 92 Calcium 9.1 Magnesium 1.8 - Imaging Impressions Chest X-Ray 02/16/18 00:00 CONCLUSION: Under aerated without significant infiltrative failure. <Nehemiah Nassar - Last Filed: 02/16/18 20:10> Assessment and Plan (1) Anemia Status: Acute Code(s): D64.9 - Anemia, unspecified (2) Epigastric abdominal pain Status: Acute Code(s): R10.13 - Epigastric pain - Plan Assessment: - Epigastric abdominal pain/gastric abdominal pain- Pt complaining of upper abdominal/epigastric pain. Has never had EGD - ?cholecystitis- on imaging, GS on the case, no plans for surgical intervention - recommend cholecystomy drain if pain worsens - Positive family history of colon cancer his father at the age of 80. No previous EGD or colonoscopy - A-fib RVR- on Eliquis (02/16) Pt was initially planned for EGD, however this was held waiting for cardiac clearance due to presentation in a-fib with RVR- currently rate controlled, pt on Eliquis I discussed with Dr. Simons on the phone who states pt is cleared for EGD and that Eliquis can be held. He plans on seeing the pt this afternoon and will include in pts note Plan EGD tomorrow Obtain consent NPO after MN Hold Eliquis GS following- cholecystostomy drain if worsens- not a surgical candidate Cardiology following- per Dr. Ryan clearance for EGD Further recommendations to follow Patient has been seen and examined by myself and Dr. Nassar and this note is written on his behalf <Lelo Cooper - Last Filed: 02/16/18 10:56> (1) Anemia Status: Acute Code(s): D64.9 - Anemia, unspecified (2) Epigastric abdominal pain Status: Acute Code(s): R10.13 - Epigastric pain - Plan Patient was seen and examined, agree with above note, plan to have endoscopy tomorrow, Abigail on hold <Nehemiah Nassar - Last Filed: 02/16/18 20:10>
--- NOTE | 2018-02-16 11:09 | XR ---
EXAM DATE: 02/16/2018 11:01 AM EDT AGE/SEX: 67 years / Male INDICATIONS: Short of breath. CLINICAL DATA: This is the patient's initial encounter. Patient reports that signs and symptoms have been present for 4 - 6 days and indicates a pain score of 0/10. MEDICAL/SURGICAL HISTORY: Gastroesophageal reflux disease. Cardiovascular disease. Hypertensi on. . 2 coronary artery stents COMPARISON: [facility], CHEST 1V SINGLE AP, 02/14/2018. . FINDINGS: The lungs are under aerated with minimal bibasilar parenchymal changes. Mildly prominent probable basilar underaeration. There is no alveolar consolidation pleural effusion or pneumothorax. CONCLUSION: Under aerated without significant infiltrative failure. Electronically signed by: Dominic Rose MD 02/16/2018 11:08 AM EDT
--- NOTE | 2018-02-16 15:21 | P.PNCA ---
<Mikala Adan N - Last Filed: 02/16/18 15:13> Subjective Interval history: Patient denies any chest pain, pressure, palpitations or dizziness. Patient continues to complain of lower abdominal pain that radiates up into the chest and makes it hard to take a deep breath. Physical Exam Vital signs: Vital Signs 02/15/18 19:46 02/15/18 20:00 02/15/18 23:39 Temperature 98.1 F Pulse Rate 81 82 48 L Respiratory Rate 17 Blood Pressure 130/103 H Pulse Oximetry 96 02/16/18 00:00 02/16/18 04:00 02/16/18 04:18 Temperature 98.1 F 98 F Pulse Rate 70 75 106 H Respiratory Rate 17 20 Blood Pressure 101/62 113/72 Pulse Oximetry 98 93 L 02/16/18 08:00 02/16/18 08:27 02/16/18 11:00 Temperature 97.9 F 97.8 F Pulse Rate 78 102 H Respiratory Rate 18 18 Blood Pressure 124/87 126/88 Pulse Oximetry 94 L 93 L 96 Intake & Output 02/15/18 02/16/18 02/16/18 18:59 06:59 18:59 Intake Total 1310 / 1310 100 / 100 100 / 100 Output Total 100 / 100 Balance 1310 / 1310 0 / 0 100 / 100 Intake: IV 350 / 350 100 / 100 100 / 100 Azithromycin Inj 500 MG In NS 250 / 250 Inj 250 ML @ 250 mls/hr IV.SIG Q24H [facility] Rx#:[id number] Magnesium Sulfate 1 gm/D5W 100 100 / 100 ml Premix 100 ML @ 100 mls/hr IV.SIG Q1H [facility] Rx#:[id number] Rocephin Inj 1,000 MG In NS Inj 100 / 100 100 ML @ 200 mls/hr IV.SIG Q24H [facility] Rx#:[id number] Oral 960 / 960 Output: Urine 100 / 100 Other: # Voids 4 Date of Last Bowel Movement 02/14/18 # Bowel Movements 0 Narrative: GENERAL: This is a well-nourished, well-developed patient, in no apparent distress. Patient speaks in clear complete sentences. Patient is pleasant. HEENT: Head is atraumatic and normocephalic. Neck is supple without lymphadenopathy and trachea is midline. No JVD or carotid bruits. CARDIOVASCULAR: Atrial fib controlled rate without murmurs, gallops, or rubs. RESPIRATORY: Clear to auscultation. Breath sounds equal bilaterally. No wheezes , rales, or rhonchi. Chest wall is nontender. No use of accessory muscles. GASTROINTESTINAL: Patient complains of lower abdominal pain that radiates up into the chest that increases with palpation. Abdomen is nondistended. Abdomen soft. No obvious pulsatile mass or bruit. No CVA tenderness. Strong femoral pulses bilaterally. Normal bowel sounds in all quadrants. MUSCULOSKELETAL: Patient is moving upper and lower extremities freely. No calf tenderness or edema, no Homans sign. Strong pulses in upper and lower extremities. NEUROLOGICAL: Patient is alert and oriented. Cranial nerves 2-12 are grossly intact. No focal deficits and speech is clear. SKIN: No rash and turgor is normal. Assessment and Plan - Assessment (1) Atrial fibrillation with RVR Code(s): I48.91 - Unspecified atrial fibrillation Status: Acute (2) Hypertension Code(s): I10 - Essential (primary) hypertension Status: Acute (3) Community acquired pneumonia Code(s): J18.9 - Pneumonia, unspecified organism Status: Acute (4) Coronary artery disease Code(s): I25.10 - Atherosclerotic heart disease of [place] coronary artery without angina pectoris Status: Acute (5) Hyperlipidemia Code(s): E78.5 - Hyperlipidemia, unspecified Status: Acute - Plan Patient scheduled for EGD tomorrow, NPO after midnight. Eliquis on hold for EGD. Will continue when okay with GI. Continue with current cardiac treatment plan. Will follow during hospitalization and follow up in office after discharge. Patient will follow up with primary [facility] in [place] in approximately one month. The patient was seen and evaluated by Dr. Simons who participated in care, management and decision-making. <Aurora Simons - Last Filed: 02/16/18 16:41> Physical Exam Vital signs: Vital Signs 02/15/18 19:46 02/15/18 20:00 02/15/18 23:39 Temperature 98.1 F Pulse Rate 81 82 48 L Respiratory Rate 17 Blood Pressure 130/103 H Pulse Oximetry 96 02/16/18 00:00 02/16/18 04:00 02/16/18 04:18 Temperature 98.1 F 98 F Pulse Rate 70 75 106 H Respiratory Rate 17 20 Blood Pressure 101/62 113/72 Pulse Oximetry 98 93 L 02/16/18 08:00 02/16/18 08:27 02/16/18 11:00 Temperature 97.9 F 97.8 F Pulse Rate 78 102 H Respiratory Rate 18 18 Blood Pressure 124/87 126/88 Pulse Oximetry 94 L 93 L 96 02/16/18 15:00 Temperature 98.2 F Pulse Rate 77 Respiratory Rate 16 Blood Pressure 107/66 Pulse Oximetry 96 Intake & Output 02/15/18 02/16/18 02/16/18 18:59 06:59 18:59 Intake Total 1310 / 1310 100 / 100 100 / 100 Output Total 100 / 100 Balance 1310 / 1310 0 / 0 100 / 100 Intake: IV 350 / 350 100 / 100 100 / 100 Azithromycin Inj 500 MG In NS 250 / 250 Inj 250 ML @ 250 mls/hr IV.SIG Q24H [facility] Rx#:[id number] Magnesium Sulfate 1 gm/D5W 100 100 / 100 ml Premix 100 ML @ 100 mls/hr IV.SIG Q1H [facility] Rx#:[id number] Rocephin Inj 1,000 MG In NS Inj 100 / 100 100 ML @ 200 mls/hr IV.SIG Q24H [facility] Rx#:[id number] Oral 960 / 960 Output: Urine 100 / 100 Other: # Voids 4 Date of Last Bowel Movement 02/14/18 # Bowel Movements 0 Assessment and Plan - Assessment (1) Atrial fibrillation with RVR Code(s): I48.91 - Unspecified atrial fibrillation Status: Acute (2) Hypertension Code(s): I10 - Essential (primary) hypertension Status: Acute (3) Community acquired pneumonia Code(s): J18.9 - Pneumonia, unspecified organism Status: Acute (4) Coronary artery disease Code(s): I25.10 - Atherosclerotic heart disease of [place] coronary artery without angina pectoris Status: Acute (5) Hyperlipidemia Code(s): E78.5 - Hyperlipidemia, unspecified Status: Acute - Attending Attestation Patient seen and examined. I reviewed and agree with the evaluation and plan as presented. Patient cleared for endoscopy tomorrow. Hold Eliquis for his procedure. Cleared for cholecystectomy if necessary as well. Continue monitoring. Continue and titrate rate control as needed.
[2018-02-16] MEDS: Azithromycin Inj 500 MG in Sodium Chlor 0.9% Inj 250 ML IV.SIG SCH (16:00)
--- NOTE | 2018-02-16 17:18 | P.PNIM ---
Subjective Interval history: The patient says he develops a sensation where he feels his stomach turn and then he cannot breathe effectively for a little while. He said he cannot breathe because he feels like his stomach will not move all the way. Otherwise he feels better. He denies any shortness of breath at this time. Discussed with nursing. Physical Exam Vital signs: Vital Signs 02/15/18 19:46 02/15/18 20:00 02/15/18 23:39 Temperature 98.1 F Pulse Rate 81 82 48 L Respiratory Rate 17 Blood Pressure 130/103 H Pulse Oximetry 96 02/16/18 00:00 02/16/18 04:00 02/16/18 04:18 Temperature 98.1 F 98 F Pulse Rate 70 75 106 H Respiratory Rate 17 20 Blood Pressure 101/62 113/72 Pulse Oximetry 98 93 L 02/16/18 08:00 02/16/18 08:27 02/16/18 11:00 Temperature 97.9 F 97.8 F Pulse Rate 78 102 H Respiratory Rate 18 18 Blood Pressure 124/87 126/88 Pulse Oximetry 94 L 93 L 96 02/16/18 15:00 Temperature 98.2 F Pulse Rate 77 Respiratory Rate 16 Blood Pressure 107/66 Pulse Oximetry 96 Intake & Output 02/15/18 02/16/18 02/16/18 18:59 06:59 18:59 Intake Total 1310 / 1310 100 / 100 100 / 100 Output Total 100 / 100 Balance 1310 / 1310 0 / 0 100 / 100 Intake: IV 350 / 350 100 / 100 100 / 100 Azithromycin Inj 500 MG In NS 250 / 250 Inj 250 ML @ 250 mls/hr IV.SIG Q24H [facility] Rx#:[id number] Magnesium Sulfate 1 gm/D5W 100 100 / 100 ml Premix 100 ML @ 100 mls/hr IV.SIG Q1H [facility] Rx#:[id number] Rocephin Inj 1,000 MG In NS Inj 100 / 100 100 ML @ 200 mls/hr IV.SIG Q24H [facility] Rx#:[id number] Oral 960 / 960 Output: Urine 100 / 100 Other: # Voids 4 Date of Last Bowel Movement 02/14/18 # Bowel Movements 0 Narrative: GENERAL: NAD, HEAD: Normocephalic. NECK: Supple, trachea midline. No lymphadenopathy. EYES: No scleral icterus. No injection or drainage. CARDIOVASCULAR: Regular rate and rhythm without murmurs, gallops, or rubs. RESPIRATORY: Breath sounds equal bilaterally. No accessory muscle use. GASTROINTESTINAL: Abdomen soft, nontender, nondistended. MUSCULOSKELETAL: No cyanosis or edema. SKIN: Warm and dry. NEURO: No focal neurological deficits. Results - Labs CBC & Chem 7: 02/16/18 07:23 02/16/18 07:23 Laboratory Results - last 24 hr 02/16/18 02/16/18 07:23 07:23 WBC 7.3 RBC 3.56 L Hgb 12.4 L Hct 35.0 L MCV 98.3 MCH 34.8 H MCHC 35.4 RDW 14.1 Plt Count 213 MPV 8.6 Sodium 139 Potassium 4.0 D Chloride 104 Carbon Dioxide 26.8 Anion Gap 8 BUN 11 Creatinine 1.03 Estimated GFR 72 L Random Glucose 92 Calcium 9.1 Magnesium 1.8 - Imaging Impressions Chest X-Ray 02/16/18 00:00 CONCLUSION: Under aerated without significant infiltrative failure. Assessment and Plan - Plan 67-year-old male admitted secondary to pneumonia with A. fib RVR Epigastric pain Gastroenterology consult appreciated. HIDA with ? of cholecystitis. US not indicative of acute cholecystitis. -surgery consult appreciated. Cholecystostomy tube if needed. -pain control as needed. -GI planning on EGD tomorrow. Community-acquired pneumonia -Azithromycin, Rocephin, Probiotics. -Oxygen supplementation. -repeat CXR in AM. Atrial fibrillation with RVR Improved on meds. -Continue diltiazem p.o. and metoprolol. -Follow on telemetry -Continue Eliquis. On hold for procedure. -Cardiology following. Will need clearance prior to EGD. Coronary artery disease Cardiac enzymes within normal limits. -continue cardiac regimen. Hypertension Well controlled. -Adjust treatments as needed -Hold Lisinopril, Added Diltiazem DVT prophylaxis: Eliquis
--- NOTE | 2018-02-17 06:31 | XR ---
EXAM DATE: 02/17/2018 6:22 AM EDT AGE/SEX: 67 years / Male INDICATIONS: Slightly short of breath CLINICAL DATA: This is the patient's subsequent encounter. Patient reports that signs and symptoms h ave been present for 1 week and indicates a pain score of 0/10. MEDICAL/SURGICAL HISTORY: Cardiovascular disease. Gastroesophageal reflux disease. Hypertensi on. Coronary artery stent. COMPARISON: [facility] – [place], CHEST 1V SINGLE AP, 02/16/2018. . FINDINGS: A single AP view of the chest demonstrates minimal right basilar density. Left lung clear. Heart norm al in size. The cardiomediastinal contours are unremarkable. Osseous structures are intact. CONCLUSION: Minimal right basilar density likely atelectasis. Electronically signed by: Jeffery Gomes MD 02/17/2018 6:29 AM EDT
[2018-02-17] MEDS: Senna/Docusate Sodium 8.6/50 MG Tablet PO SCH ×2 (08:39→21:36)
[2018-02-17] MEDS: Famotidine 20 MG Tablet PO SCH (08:39)
[2018-02-17] MEDS: Folic Acid 1 MG Tablet PO SCH (08:40)
[2018-02-17] MEDS: Lactobacillus Acidophilus/L. Spores Tablet PO SCH ×3 (08:40→18:41)
--- NOTE | 2018-02-17 10:37 | P.PCN ---
Procedure: THANK YOU FOR THE REFERRAL Indication; abdominal pain Procedure Performed; upper endoscopy with biopsy After informing the patient about procedure and possible complications consent was signed. history and physical were updated. Patient was taken to the procedure room and placed in position. Time out was completed. Adequate sedation was performed by anesthesia provider. Upper Endoscopy, the scope was placed in the mouth advanced under video guide to the second portion of the duodenum, then the scope was withdrawal to the stomach and retro-flexion was performed, the scope was withdrawal to the esophagus then out of the mouth without any immediate complication Findings; Esophagus: Irregular Z line biopsy was done from the EG junction Stomach minimal gastritis biopsy from the antrum Duodenum moderate duodenitis Recommendations; 1- Supportive care 2- ok to transfer to recovery area then discharge per protocol 3-await biopsy to 4-low-fat diet 5- EGD as needed 6-we will check lipase 7-no reason for the pain on upper endoscopy, could be cholecystitis
--- NOTE | 2018-02-17 10:39 | P.PNGI ---
Subjective Interval history: Patient laying in bed, seems to be more comfortable, less abdominal pain Physical Exam Vital signs: Vital Signs 02/16/18 11:00 02/16/18 15:00 02/16/18 17:57 Temperature 97.8 F 98.2 F Pulse Rate 102 H 77 Respiratory Rate 18 16 Blood Pressure 126/88 107/66 Pulse Oximetry 96 96 96 02/16/18 19:00 02/17/18 00:00 02/17/18 04:00 Temperature 97.7 F 98.7 F 98.2 F Pulse Rate 84 72 65 Respiratory Rate 18 19 17 Blood Pressure 112/58 L 100/66 116/70 Pulse Oximetry 98 96 94 L 02/17/18 08:00 02/17/18 08:39 Temperature 98.3 F Pulse Rate 69 Respiratory Rate 18 Blood Pressure 128/80 Pulse Oximetry 94 L 95 Intake & Output 02/16/18 02/17/18 02/17/18 18:59 06:59 18:59 Intake Total 100 / 100 350 / 350 Balance 100 / 100 350 / 350 Intake: IV 100 / 100 350 / 350 Azithromycin Inj 500 MG In NS 250 / 250 Inj 250 ML @ 250 mls/hr IV.SIG Q24H AN[facility]IO Rx#:[id number] Rocephin Inj 1,000 MG In NS Inj 100 / 100 100 ML @ 200 mls/hr IV.SIG Q24H ANTONIO Rx#:[id number] Other: # Voids 1 - Constitutional no acute distress - Routine HEENT Exam Head: Present: normocephalic, atraumatic Eye: Present: EOMI, PERRL ENT: Present: mucous membranes moist - Routine Neck Exam Present: supple, full ROM - Routine Respiratory Exam Present: CTA bilaterally - Routine Cardiovascular Exam Present: RRR, S1, S2 - Routine Abdominal Exam Present: soft, normoactive bowel sounds - Routine Extremities Exam Present: normal capillary refill Results - Labs CBC & Chem 7: 02/16/18 07:23 02/16/18 07:23 - Imaging Impressions Chest X-Ray 02/16/18 00:00 CONCLUSION: Under aerated without significant infiltrative failure. Chest X-Ray 02/17/18 06:00 CONCLUSION: Minimal right basilar density likely atelectasis. Assessment and Plan (1) Anemia Status: Acute Code(s): D64.9 - Anemia, unspecified (2) Epigastric abdominal pain Status: Acute Code(s): R10.13 - Epigastric pain - Plan Patient was seen and examined, Eliquis on hold, abdominal pain slightly better, had upper endoscopy today Findings; Esophagus: Irregular Z line biopsy was done from the EG junction Stomach minimal gastritis biopsy from the antrum Duodenum moderate duodenitis Recommendations; 1- Supportive care 2- ok to transfer to recovery area then discharge per protocol 3-await biopsy to 4-low-fat diet 5- EGD as needed 6-we will check lipase 7-no reason for the pain on upper endoscopy, could be cholecystitis
--- NOTE | 2018-02-17 11:00 | P.PNIM ---
Subjective Interval history: The patient wanted to know if there was anything that could be done to fix his heart rate. He still endorsed some shortness of breath episodes every once in a while. He was about to go down for endoscopy. Discussed with nursing. Physical Exam Vital signs: Vital Signs 02/16/18 11:00 02/16/18 15:00 02/16/18 17:57 Temperature 97.8 F 98.2 F Pulse Rate 102 H 77 Respiratory Rate 18 16 Blood Pressure 126/88 107/66 Pulse Oximetry 96 96 96 02/16/18 19:00 02/17/18 00:00 02/17/18 04:00 Temperature 97.7 F 98.7 F 98.2 F Pulse Rate 84 72 65 Respiratory Rate 18 19 17 Blood Pressure 112/58 L 100/66 116/70 Pulse Oximetry 98 96 94 L 02/17/18 08:00 02/17/18 08:39 02/17/18 10:44 Temperature 98.3 F 97.7 F Pulse Rate 69 73 Respiratory Rate 18 16 Blood Pressure 128/80 99/69 L Pulse Oximetry 94 L 95 92 L Intake & Output 02/16/18 02/17/18 02/17/18 18:59 06:59 18:59 Intake Total 100 / 100 350 / 350 Balance 100 / 100 350 / 350 Intake: IV 100 / 100 350 / 350 Azithromycin Inj 500 MG In NS 250 / 250 Inj 250 ML @ 250 mls/hr IV.SIG Q24H [facility] Rx#:[id number] Rocephin Inj 1,000 MG In NS Inj 100 / 100 100 ML @ 200 mls/hr IV.SIG Q24H ANTONIO Rx#:[id number] Other: # Voids 1 Narrative: GENERAL: NAD, HEAD: Normocephalic. NECK: Supple, trachea midline. No lymphadenopathy. EYES: No scleral icterus. No injection or drainage. CARDIOVASCULAR: Irregularly irregular without murmurs, gallops or rubs. RESPIRATORY: Breath sounds equal bilaterally. No accessory muscle use. GASTROINTESTINAL: Abdomen soft, nontender, nondistended. MUSCULOSKELETAL: No cyanosis or edema. SKIN: Warm and dry. NEURO: No focal neurological deficits. Results - Labs CBC & Chem 7: 02/16/18 07:23 02/16/18 07:23 - Imaging Impressions Chest X-Ray 02/16/18 00:00 CONCLUSION: Under aerated without significant infiltrative failure. Chest X-Ray 02/17/18 06:00 CONCLUSION: Minimal right basilar density likely atelectasis. Assessment and Plan - Plan 67-year-old male admitted secondary to pneumonia with A. fib RVR Epigastric pain Gastroenterology consult appreciated. HIDA with ? of cholecystitis. US not indicative of acute cholecystitis. Status post EGD 02/17/2018 without acute abnormality. -surgery consult appreciated. Cholecystostomy tube if needed. -pain control as needed. -GI following. -Lipase pending. Community-acquired pneumonia Repeat x-ray does not demonstrate pneumonia. -Complete course of azithromycin and Rocephin. Continue probiotics. -Oxygen supplementation as needed. Atrial fibrillation with RVR Improved on meds. -Continue diltiazem p.o. and metoprolol. -Follow on telemetry -Continue Eliquis. On hold for procedure. -Cardiology following. Coronary artery disease Cardiac enzymes within normal limits. -continue cardiac regimen. Hypertension Well controlled. -Adjust treatments as needed -Hold Lisinopril, Added Diltiazem DVT prophylaxis: Eliquis
[2018-02-17] MEDS ORDERED: Lidocaine PF 1% Inj 5 ML Syringe INFILTRATN ONE (12:00)
[2018-02-17] MEDS ORDERED: Glycopyrrolate Inj 1 MG/5 ML Syringe IV.PUSH ONE (12:00)
[2018-02-17 14:24] LABS: Alanine Aminotransferase 14 U/L (12-78); Albumin 3.4 g/dL (3.4-5.0); Anion Gap 7 meq/L (5-15); Aspartate Aminotransferase 19 U/L (15-37); Blood Urea Nitrogen 13 mg/dL (7-18); Calcium 9.2 mg/dL (8.5-10.1); Carbon Dioxide 28.4 meq/L (21.0-32.0); Chloride 105 meq/L (98-107); Glomerular Filtration Rate 67 mL/min (>89); Glucose,Random 115 mg/dL (74-106); Sodium 140 meq/L (136-145)
[2018-02-17 14:26] LABS: Alkaline Phosphatase 89 U/L (45-117); Total Protein 7.4 g/dL (6.4-8.2)
--- NOTE | 2018-02-17 14:53 | P.PNCA ---
<Mikala Adan N - Last Filed: 02/17/18 14:47> Subjective Interval history: Patient denies any chest pain, pressure, palpitations, dizziness or shortness of breath. States he feels a little better after EGD this morning. Physical Exam Vital signs: Vital Signs 02/16/18 15:00 02/16/18 17:57 02/16/18 19:00 Temperature 98.2 F 97.7 F Pulse Rate 77 84 Respiratory Rate 16 18 Blood Pressure 107/66 112/58 L Pulse Oximetry 96 96 98 02/17/18 00:00 02/17/18 04:00 02/17/18 08:00 Temperature 98.7 F 98.2 F 98.3 F Pulse Rate 72 65 69 Respiratory Rate 19 17 18 Blood Pressure 100/66 116/70 128/80 Pulse Oximetry 96 94 L 94 L 02/17/18 08:39 02/17/18 10:44 02/17/18 10:55 Temperature 97.7 F Pulse Rate 73 81 Respiratory Rate 16 16 Blood Pressure 99/69 L 116/71 Pulse Oximetry 95 93 L 93 L 02/17/18 10:58 02/17/18 11:00 Temperature 98.1 F Pulse Rate 80 Respiratory Rate 18 Blood Pressure 104/83 Pulse Oximetry 95 95 Intake & Output 02/16/18 02/17/18 02/17/18 18:59 06:59 18:59 Intake Total 100 / 100 650 / 650 Balance 100 / 100 650 / 650 Intake: IV 100 / 100 350 / 350 Azithromycin Inj 500 MG In NS 250 / 250 Inj 250 ML @ 250 mls/hr IV.SIG Q24H [facility]IO Rx#:[id number] Rocephin Inj 1,000 MG In NS Inj 100 / 100 100 ML @ 200 mls/hr IV.SIG Q24H ANTONIO Rx#:[id number] Anesthesia Amount 300 / 300 Other: # Voids 1 Narrative: GENERAL: This is a well-nourished, well-developed patient, in no apparent distress. Patient speaks in clear complete sentences. Patient is pleasant. HEENT: Head is atraumatic and normocephalic. Neck is supple without lymphadenopathy and trachea is midline. No JVD or carotid bruits. CARDIOVASCULAR: Atrial fib controlled rate without murmurs, gallops, or rubs. RESPIRATORY: Clear to auscultation. Breath sounds equal bilaterally. No wheezes , rales, or rhonchi. Chest wall is nontender. No use of accessory muscles. GASTROINTESTINAL: Abdomen is nondistended. Left lower quadrant pain on palpation. Abdomen soft. No obvious pulsatile mass or bruit. No CVA tenderness. Strong femoral pulses bilaterally. Normal bowel sounds in all quadrants. MUSCULOSKELETAL: Patient is moving upper and lower extremities freely. No calf tenderness or edema, no Homans sign. Strong pulses in upper and lower extremities. NEUROLOGICAL: Patient is alert and oriented. Cranial nerves 2-12 are grossly intact. No focal deficits and speech is clear. SKIN: No rash and turgor is normal. Assessment and Plan - Assessment (1) Atrial fibrillation with RVR Code(s): I48.91 - Unspecified atrial fibrillation Status: Acute (2) Hypertension Code(s): I10 - Essential (primary) hypertension Status: Acute (3) Community acquired pneumonia Code(s): J18.9 - Pneumonia, unspecified organism Status: Acute (4) Coronary artery disease Code(s): I25.10 - Atherosclerotic heart disease of [place] coronary artery without angina pectoris Status: Acute (5) Hyperlipidemia Code(s): E78.5 - Hyperlipidemia, unspecified Status: Acute - Plan Patient had a EGD this morning. Eliquis on hold, continue when okay with GI. Continue with current cardiac treatment plan. Will follow during hospitalization and follow up in office after discharge. Patient will follow up with primary [facility] in [place] in approximately one month. The patient was seen and evaluated by Dr. Simons who participated in care, management and decision-making. <Aurora Simons - Last Filed: 02/17/18 18:05> Physical Exam Vital signs: Vital Signs 02/16/18 19:00 02/17/18 00:00 02/17/18 04:00 Temperature 97.7 F 98.7 F 98.2 F Pulse Rate 84 72 65 Respiratory Rate 18 19 17 Blood Pressure 112/58 L 100/66 116/70 Pulse Oximetry 98 96 94 L 02/17/18 08:00 02/17/18 08:39 02/17/18 10:44 Temperature 98.3 F 97.7 F Pulse Rate 69 73 Respiratory Rate 18 16 Blood Pressure 128/80 99/69 L Pulse Oximetry 94 L 95 93 L 02/17/18 10:55 02/17/18 10:58 02/17/18 11:00 Temperature 98.1 F Pulse Rate 81 80 Respiratory Rate 16 18 Blood Pressure 116/71 104/83 Pulse Oximetry 93 L 95 95 02/17/18 16:03 Temperature 98.2 F Pulse Rate 94 H Respiratory Rate 18 Blood Pressure 113/75 Pulse Oximetry 94 L Intake & Output 02/16/18 02/17/18 02/17/18 18:59 06:59 18:59 Intake Total 100 / 100 650 / 650 Balance 100 / 100 650 / 650 Intake: IV 100 / 100 350 / 350 Azithromycin Inj 500 MG In NS 250 / 250 Inj 250 ML @ 250 mls/hr IV.SIG Q24H [facility]IO Rx#:[id number] Rocephin Inj 1,000 MG In NS Inj 100 / 100 100 ML @ 200 mls/hr IV.SIG Q24H ANTONIO Rx#:[id number] Anesthesia Amount 300 / 300 Other: # Voids 1 Assessment and Plan - Assessment (1) Atrial fibrillation with RVR Code(s): I48.91 - Unspecified atrial fibrillation Status: Acute (2) Hypertension Code(s): I10 - Essential (primary) hypertension Status: Acute (3) Community acquired pneumonia Code(s): J18.9 - Pneumonia, unspecified organism Status: Acute (4) Coronary artery disease Code(s): I25.10 - Atherosclerotic heart disease of [place] coronary artery without angina pectoris Status: Acute (5) Hyperlipidemia Code(s): E78.5 - Hyperlipidemia, unspecified Status: Acute - Attending Attestation Patient seen and examined. I reviewed and agree with the evaluation and plan as presented. AISLINN torres in progress. No new cardiac issues. Resume full anticoagulation for AF.
--- NOTE | 2018-02-17 17:19 | P.PNGS ---
<Tabitha Carbajal - Last Filed: 02/17/18 17:16> Subjective Interval history: Resting in bed; reports abdominal pain is somewhat better Physical Exam Vital signs: Vital Signs 02/16/18 17:57 02/16/18 19:00 02/17/18 00:00 Temperature 97.7 F 98.7 F Pulse Rate 84 72 Respiratory Rate 18 19 Blood Pressure 112/58 L 100/66 Pulse Oximetry 96 98 96 02/17/18 04:00 02/17/18 08:00 02/17/18 08:39 Temperature 98.2 F 98.3 F Pulse Rate 65 69 Respiratory Rate 17 18 Blood Pressure 116/70 128/80 Pulse Oximetry 94 L 94 L 95 02/17/18 10:44 02/17/18 10:55 02/17/18 10:58 Temperature 97.7 F Pulse Rate 73 81 Respiratory Rate 16 16 Blood Pressure 99/69 L 116/71 Pulse Oximetry 93 L 93 L 95 02/17/18 11:00 02/17/18 16:03 Temperature 98.1 F 98.2 F Pulse Rate 80 94 H Respiratory Rate 18 18 Blood Pressure 104/83 113/75 Pulse Oximetry 95 94 L Intake & Output 02/16/18 02/17/18 02/17/18 18:59 06:59 18:59 Intake Total 100 / 100 650 / 650 Balance 100 / 100 650 / 650 Intake: IV 100 / 100 350 / 350 Azithromycin Inj 500 MG In NS 250 / 250 Inj 250 ML @ 250 mls/hr IV.SIG Q24H [facility]IO Rx#:[id number] Rocephin Inj 1,000 MG In NS Inj 100 / 100 100 ML @ 200 mls/hr IV.SIG Q24H ANTONIO Rx#:[id number] Anesthesia Amount 300 / 300 Other: # Voids 1 Narrative: Alert and awake Cardio: rate controlled Resp: CTAB Abd: soft; faintly tender in the RUQ No edema Assessment and Plan - Assessment (1) Bilateral pleural effusion Code(s): J90 - Pleural effusion, not elsewhere classified Status: Acute (2) Atrial fibrillation with RVR Code(s): I48.91 - Unspecified atrial fibrillation Status: Acute (3) Community acquired pneumonia Code(s): J18.9 - Pneumonia, unspecified organism Status: Acute (4) Coronary artery disease Code(s): I25.10 - Atherosclerotic heart disease of [place] coronary artery without angina pectoris Status: Acute (5) Abdominal pain Code(s): R10.9 - Unspecified abdominal pain Status: Acute Plan: 67 year old male with atrial fibrillation; on Eliquis; abdominal pain -s/p EGD -Will do a trial of diet ---if not able to tolerate may need to place cholecystostomy tube vs lap gabrielle -Patient remains a high risk due to cardiac status -Will continue to follow <Praveen Edouard - Last Filed: 02/18/18 15:06> Physical Exam Vital signs: Vital Signs 02/17/18 16:03 02/17/18 18:17 02/17/18 19:00 Temperature 98.2 F 97.8 F Pulse Rate 94 H 79 Respiratory Rate 18 21 Blood Pressure 113/75 110/73 Pulse Oximetry 94 L 94 L 95 02/17/18 23:00 02/18/18 05:22 02/18/18 08:00 Temperature 98.2 F 97.7 F 98.1 F Pulse Rate 69 78 80 Respiratory Rate 19 20 16 Blood Pressure 104/68 114/47 L 117/80 Pulse Oximetry 94 L 94 L 95 Intake & Output 02/17/18 02/18/18 02/18/18 18:59 06:59 18:59 Intake Total 1250 / 1250 600 / 600 Output Total Balance 1250 / 1250 599 / 599 Weight 98.4 kg Intake: IV 350 / 350 Azithromycin Inj 500 MG In NS 250 / 250 Inj 250 ML @ 250 mls/hr IV.SIG Q24H [facility] Rx#:[id number] Rocephin Inj 1,000 MG In NS Inj 100 / 100 100 ML @ 200 mls/hr IV.SIG Q24H ANTONIO Rx#:[id number] Oral 600 / 600 600 / 600 Anesthesia Amount 300 / 300 Output: Stool Other: # Voids 2 2 Date of Last Bowel Movement 02/16/18 02/16/18 Assessment and Plan - Assessment (1) Bilateral pleural effusion Code(s): J90 - Pleural effusion, not elsewhere classified Status: Acute (2) Atrial fibrillation with RVR Code(s): I48.91 - Unspecified atrial fibrillation Status: Acute (3) Community acquired pneumonia Code(s): J18.9 - Pneumonia, unspecified organism Status: Acute (4) Coronary artery disease Code(s): I25.10 - Atherosclerotic heart disease of [place] coronary artery without angina pectoris Status: Acute (5) Abdominal pain Code(s): R10.9 - Unspecified abdominal pain Status: Acute Plan: EGD did not demonstrate any acute findings. Abdomen remains benign. Patient has minimal pain in the abdomen at this point. I have spoken with Dr. Aquilino wall who is the concentrator operator on his case. He has indicated that his stents had been placed over a year ago and discontinuing anticoagulation is not contraindicated. Thus, if he continues to have any problems, he could undergo laparoscopic cholecystectomy. The exam, history, and the medical decision-making described in the above note were completed with the assistance of the mid-level provider. I reviewed and agree with the findings presented. I attest that I had a [id number] encounter with the patient on the same day, and personally performed and documented my assessment and findings in the medical record.
[2018-02-18] MEDS: Famotidine 20 MG Tablet PO SCH (09:06)
[2018-02-18] MEDS: Folic Acid 1 MG Tablet PO SCH (09:06)
[2018-02-18] MEDS: Senna/Docusate Sodium 8.6/50 MG Tablet PO SCH (09:06)
[2018-02-18] MEDS: Lactobacillus Acidophilus/L. Spores Tablet PO SCH (09:06)
[2018-02-18 09:28] VITALS: BP 117/80; RESP 16; TEMP 98.1; O2SAT 95
--- NOTE | 2018-02-18 10:08 | P.PNGI ---
Subjective Interval history: Pt resting in bed, tolerated breakfast this morning. States minimal pain in his stomach. Denies nausea, vomiting. Dr. Sosa at bedside, states planning on discharging pt home today. Physical Exam Vital signs: Vital Signs 02/17/18 10:44 02/17/18 10:55 02/17/18 10:58 Temperature 97.7 F Pulse Rate 73 81 Respiratory Rate 16 16 Blood Pressure 99/69 L 116/71 Pulse Oximetry 93 L 93 L 95 02/17/18 11:00 02/17/18 16:03 02/17/18 18:17 Temperature 98.1 F 98.2 F Pulse Rate 80 94 H Respiratory Rate 18 18 Blood Pressure 104/83 113/75 Pulse Oximetry 95 94 L 94 L 02/17/18 19:00 02/17/18 23:00 02/18/18 05:22 Temperature 97.8 F 98.2 F 97.7 F Pulse Rate 79 69 78 Respiratory Rate 21 19 20 Blood Pressure 110/73 104/68 114/47 L Pulse Oximetry 95 94 L 94 L 02/18/18 08:00 Temperature 98.1 F Pulse Rate 79 Respiratory Rate 16 Blood Pressure 117/80 Pulse Oximetry 95 Intake & Output 02/17/18 02/18/18 02/18/18 18:59 06:59 18:59 Intake Total 1250 / 1250 600 / 600 Output Total Balance 1250 / 1250 599 / 599 Weight 98.4 kg Intake: IV 350 / 350 Azithromycin Inj 500 MG In NS 250 / 250 Inj 250 ML @ 250 mls/hr IV.SIG Q24H [facility] Rx#:[id number] Rocephin Inj 1,000 MG In NS Inj 100 / 100 100 ML @ 200 mls/hr IV.SIG Q24H ANTONIO Rx#:[id number] Oral 600 / 600 600 / 600 Anesthesia Amount 300 / 300 Output: Stool Other: # Voids 2 2 Date of Last Bowel Movement 02/16/18 - Constitutional no acute distress - Routine HEENT Exam Head: Present: normocephalic, atraumatic - Routine Respiratory Exam Absent: accessory muscle use - Routine Abdominal Exam Present: soft, normoactive bowel sounds. Absent: tenderness, distended - Routine Skin Exam Present: dry, warm - Routine Neurological Exam Present: alert, oriented X3 Results - Labs CBC & Chem 7: 02/16/18 07:23 02/17/18 13:15 Laboratory Results - last 24 hr 02/17/18 02/17/18 02/17/18 13:15 13:15 13:15 Sodium 140 Potassium 4.0 Chloride 105 Carbon Dioxide 28.4 Anion Gap 7 BUN 13 Creatinine 1.09 Estimated GFR 67 L Random Glucose 115 H Calcium 9.2 Total Bilirubin 0.7 AST 19 ALT 14 Alkaline Phosphatase 89 Total Protein 7.4 Albumin 3.4 Lipase 129 TSH 2.500 Assessment and Plan (1) Anemia Status: Acute Code(s): D64.9 - Anemia, unspecified (2) Epigastric abdominal pain Status: Acute Code(s): R10.13 - Epigastric pain - Plan Assessment: - Epigastric abdominal pain/gastric abdominal pain- Pt complaining of upper abdominal/epigastric pain. Has never had EGD - ?cholecystitis- on imaging, GS on the case, no plans for surgical intervention - recommend cholecystomy drain if pain worsens - Positive family history of colon cancer his father at the age of 80. No previous EGD or colonoscopy - A-fib RVR- on Eliquis (02/16) Pt was initially planned for EGD, however this was held waiting for cardiac clearance due to presentation in a-fib with RVR- currently rate controlled, pt on Eliquis I discussed with Dr. Simons on the phone who states pt is cleared for EGD and that Eliquis can be held. He plans on seeing the pt this afternoon and will include in pts note EGD (02/18) Esophagus: Irregular Z line biopsy was done from the EG junction. Stomach: minimal gastritis biopsy from the antrum. Duodenum: moderate duodenitis (02/18) Pt reports he feels well today, minimal abdominal pain. Denies nausea, vomiting. Tolerated breakfast this morning. Dr. Sosa at bedside, discharging pt to home today. Lipase checked, WNL Plan: Protonix Low-fat diet EGD biopsy pending Primary team discharging pt today Have pt follow up with GI after DC Pt has been seen and examined by myself and Dr. Nassar and this note is written on his behalf
--- NOTE | 2018-02-18 10:23 | P.DS ---
Date of admission: 02/10/18 15:50 Primary care physician: UNKNOWN Anticipated date of discharge: 02/18/18 Brief History from admission: Mr. Khalil is a 67 year old male. He comes into the hospital with the primary complaint of shortness of breath and some chest tightness. Imaging shows pneumonia. He has atrial fibrillation at baseline and with a pneumonia and this has developed into A. fib RVR. Some elevation of BNP is present this is likely related to his A. fib RVR. He denies any chest pain. No other complaints today. No nausea or vomiting. No back pain. She denies any known fevers. DS: Diagnosis - Discharge Diagnosis (1) Atrial fibrillation with RVR Status: Acute (2) Community acquired pneumonia Status: Acute (3) Epigastric abdominal pain Status: Acute DS: Medications - Discharge Medications Prescriptions: diltiazem HCl [Cardizem CD] 360 mg PO DAILY #30 cap pantoprazole [Protonix] 40 mg PO DAILY #30 tab DS: Summary Hospital Course: Epigastric pain Gastroenterology was consulted. HIDA with ? of cholecystitis. US not indicative of acute cholecystitis. Status post EGD 02/17/2018 without acute abnormality, only gastritis and duodenitis. General surgery was consulted. Cholecystostomy tube was recommended if needed. The patient's symptoms continued to improve and he tolerated a diet. His LFTs were not elevated. He will be started on a PPI. He will follow up with GI and surgery as an outpt. Community-acquired pneumonia Repeat x-ray did not demonstrate pneumonia. He completed a course of azithromycin and Rocephin. He received probiotics. He received oxygen supplementation as needed. Atrial fibrillation with RVR Cardiology was consulted. He was monitored on telemetry. We continued Toprol XL. Diltiazem 90 mg QID was added. Eliquis was continued. The pt will continue Toprol XL 100 mg daily along with Cardizem CD 360 mg daily upon discharge. Lisinopril was discontinued s/t borderline low blood pressures at times. The pt will follow up with cardiology in one week. Coronary artery disease/ HTN Cardiac enzymes within normal limits. We continued his cardiac regimen except for lisinopril as above. - Time Spent with Patient Total time spent providing and/or coordinating discharge services: Greater than 30 minutes - Quality: VTE Deep Vein Thrombosis/Pulmonary Embolism Present on Admission: No Exam Vital signs: Vital Signs 02/17/18 10:44 02/17/18 10:55 02/17/18 10:58 Temperature 97.7 F Pulse Rate 73 81 Respiratory Rate 16 16 Blood Pressure 99/69 L 116/71 Pulse Oximetry 93 L 93 L 95 02/17/18 11:00 02/17/18 16:03 02/17/18 18:17 Temperature 98.1 F 98.2 F Pulse Rate 80 94 H Respiratory Rate 18 18 Blood Pressure 104/83 113/75 Pulse Oximetry 95 94 L 94 L 02/17/18 19:00 02/17/18 23:00 02/18/18 05:22 Temperature 97.8 F 98.2 F 97.7 F Pulse Rate 79 69 78 Respiratory Rate 21 19 20 Blood Pressure 110/73 104/68 114/47 L Pulse Oximetry 95 94 L 94 L 02/18/18 08:00 Temperature 98.1 F Pulse Rate 79 Respiratory Rate 16 Blood Pressure 117/80 Pulse Oximetry 95 Intake & Output 02/17/18 02/18/18 02/18/18 18:59 06:59 18:59 Intake Total 1250 / 1250 600 / 600 Output Total Balance 1250 / 1250 599 / 599 Weight 98.4 kg Intake: IV 350 / 350 Azithromycin Inj 500 MG In NS 250 / 250 Inj 250 ML @ 250 mls/hr IV.SIG Q24H ANTONIO Rx#:[id number] Rocephin Inj 1,000 MG In NS Inj 100 / 100 100 ML @ 200 mls/hr IV.SIG Q24H ANTONIO Rx#:[id number] Oral 600 / 600 600 / 600 Anesthesia Amount 300 / 300 Output: Stool Other: # Voids 2 2 Date of Last Bowel Movement 02/16/18 Narrative: GENERAL: NAD, HEAD: Normocephalic. NECK: Supple, trachea midline. No lymphadenopathy. EYES: No scleral icterus. No injection or drainage. CARDIOVASCULAR: Irregularly irregular without murmurs, gallops or rubs. RESPIRATORY: Breath sounds equal bilaterally. No accessory muscle use. GASTROINTESTINAL: Abdomen soft, nontender, nondistended. MUSCULOSKELETAL: No cyanosis or edema. SKIN: Warm and dry. NEURO: No focal neurological deficits. Results Procedures completed during hospitalization: See hospital course Pending studies at discharge: Pending at discharge 02/17/18 12:07 Surgical [PTH] Routine Labs on day of discharge: Labs from last 24 hours 02/17/18 02/17/18 02/17/18 13:15 13:15 13:15 Sodium 140 Potassium 4.0 Chloride 105 Carbon Dioxide 28.4 Anion Gap 7 BUN 13 Creatinine 1.09 Estimated GFR 67 L Random Glucose 115 H Calcium 9.2 Total Bilirubin 0.7 AST 19 ALT 14 Alkaline Phosphatase 89 Total Protein 7.4 Albumin 3.4 Lipase 129 TSH 2.500 - Impressions ITS Impressions Thoracic Aorta CT 02/10/18 16:56 CONCLUSION: 1. No aneurysm or dissection of the aorta. 2. Equivocal CT findings; early or mild appendicitis possible in the proper clinical setting. 3. Cholelithiasis without perceptible associated inflammatory changes. No duct stone or ductal dilatation. 4. Moderate right and [id number] left pleural effusions. Mild consolidation right lower lobe. 5. Enlarged heart with coronary artery calcification. Abdomen/Pelvis CT 02/13/18 00:00 CONCLUSION: 1. Increasing bilateral pleural effusions. 2. Contracted gallbladder with pericholecystic fluid. Tiny stones again noted. 3. Tortuous abdominal aorta. 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 4. Some wall thickening of the bladder; cystitis would be in the differential. Bile Acid Absorption NM 02/14/18 00:00 CONCLUSION: 1. No definite uptake within the gallbladder suggesting the possibility of cholecystitis. 2. No common bile duct obstruction. Gallbladder Ultrasound 02/15/18 00:00 CONCLUSION: 1. Echogenic liver which can be seen with hepatic steatosis. 2. Echogenic focus in the gallbladder could be gallstone versus polyp. There is gallbladder wall thickening. No pericholecystic fluid. 3. Small right pleural effusion. Chest X-Ray 02/17/18 06:00 CONCLUSION: Minimal right basilar density likely atelectasis. Discharge Plan - Discharge Disposition Patient Disposition: 01 Discharge Home - Discharge Condition Condition: Stable - Discharge Order Discharge Orders: Discharge Order (Routine); Ordered 02/18/18 Ordered By: Praveen Sosa - Discharge Details Anticipated Discharge Date: 02/18/18 - Physicians Team Primary Care Provider: UNKNOWN, Attending Provider: Praveen Sosa Other Providers: Aurora Simons MD ; Toshia Rutherford MD ; Praveen Edouard MD
--- NOTE | 2018-02-18 10:24 | P.PNGS ---
<Tabitha Carbajal - Last Filed: 02/18/18 10:22> Subjective Interval history: Ambulating in room; feeling better today; going home Physical Exam Vital signs: Vital Signs 02/17/18 10:44 02/17/18 10:55 02/17/18 10:58 Temperature 97.7 F Pulse Rate 73 81 Respiratory Rate 16 16 Blood Pressure 99/69 L 116/71 Pulse Oximetry 93 L 93 L 95 02/17/18 11:00 02/17/18 16:03 02/17/18 18:17 Temperature 98.1 F 98.2 F Pulse Rate 80 94 H Respiratory Rate 18 18 Blood Pressure 104/83 113/75 Pulse Oximetry 95 94 L 94 L 02/17/18 19:00 02/17/18 23:00 02/18/18 05:22 Temperature 97.8 F 98.2 F 97.7 F Pulse Rate 79 69 78 Respiratory Rate 21 19 20 Blood Pressure 110/73 104/68 114/47 L Pulse Oximetry 95 94 L 94 L 02/18/18 08:00 Temperature 98.1 F Pulse Rate 79 Respiratory Rate 16 Blood Pressure 117/80 Pulse Oximetry 95 Intake & Output 02/17/18 02/18/18 02/18/18 18:59 06:59 18:59 Intake Total 1250 / 1250 600 / 600 Output Total Balance 1250 / 1250 599 / 599 Weight 98.4 kg Intake: IV 350 / 350 Azithromycin Inj 500 MG In NS 250 / 250 Inj 250 ML @ 250 mls/hr IV.SIG Q24H ANTONIO Rx#:[id number] Rocephin Inj 1,000 MG In NS Inj 100 / 100 100 ML @ 200 mls/hr IV.SIG Q24H ANTONIO Rx#:[id number] Oral 600 / 600 600 / 600 Anesthesia Amount 300 / 300 Output: Stool Other: # Voids 2 2 Date of Last Bowel Movement 02/16/18 Narrative: Alert and awake Cardio: RRR Resp: CTAB Abd: soft minimal tenderness Assessment and Plan - Assessment (1) Bilateral pleural effusion Code(s): J90 - Pleural effusion, not elsewhere classified Status: Acute (2) Atrial fibrillation with RVR Code(s): I48.91 - Unspecified atrial fibrillation Status: Acute (3) Community acquired pneumonia Code(s): J18.9 - Pneumonia, unspecified organism Status: Acute (4) Coronary artery disease Code(s): I25.10 - Atherosclerotic heart disease of [place] coronary artery without angina pectoris Status: Acute (5) Abdominal pain Code(s): R10.9 - Unspecified abdominal pain Status: Acute Plan: 67 year old male with atrial fibrillation; on Eliquis; abdominal pain -s/p EGD -Tolerating diet -Continues to have minimal RUQ pain but tolerable -GS clear for DC -Follow up with Dr. Edouard next <Praveen Edouard - Last Filed: 02/19/18 19:23> Assessment and Plan - Assessment (1) Bilateral pleural effusion Code(s): J90 - Pleural effusion, not elsewhere classified Status: Acute (2) Atrial fibrillation with RVR Code(s): I48.91 - Unspecified atrial fibrillation Status: Acute (3) Community acquired pneumonia Code(s): J18.9 - Pneumonia, unspecified organism Status: Acute (4) Coronary artery disease Code(s): I25.10 - Atherosclerotic heart disease of [place] coronary artery without angina pectoris Status: Acute (5) Abdominal pain Code(s): R10.9 - Unspecified abdominal pain Status: Acute Plan: Abdomen benign; tolerating diet F/U my office next week The exam, history, and the medical decision-making described in the above note were completed with the assistance of the mid-level provider. I reviewed and agree with the findings presented. I attest that I had a [id number] encounter with the patient on the same day, and personally performed and documented my assessment and findings in the medical record.
[2018-02-18 10:27] VITALS: PULSE 80
--- NOTE | 2018-02-18 10:33 | P.PNCA ---
<Mikala Adan N - Last Filed: 02/18/18 10:28> Subjective Interval history: Patient denies any chest pain, pressure, palpitations, dizziness or shortness of breath. Patient states that he is feeling much better and is sitting on the side of the bed. Physical Exam Vital signs: Vital Signs 02/17/18 10:44 02/17/18 10:55 02/17/18 10:58 Temperature 97.7 F Pulse Rate 73 81 Respiratory Rate 16 16 Blood Pressure 99/69 L 116/71 Pulse Oximetry 93 L 93 L 95 02/17/18 11:00 02/17/18 16:03 02/17/18 18:17 Temperature 98.1 F 98.2 F Pulse Rate 80 94 H Respiratory Rate 18 18 Blood Pressure 104/83 113/75 Pulse Oximetry 95 94 L 94 L 02/17/18 19:00 02/17/18 23:00 02/18/18 05:22 Temperature 97.8 F 98.2 F 97.7 F Pulse Rate 79 69 78 Respiratory Rate 21 19 20 Blood Pressure 110/73 104/68 114/47 L Pulse Oximetry 95 94 L 94 L 02/18/18 08:00 Temperature 98.1 F Pulse Rate 80 Respiratory Rate 16 Blood Pressure 117/80 Pulse Oximetry 95 Intake & Output 02/17/18 02/18/18 02/18/18 18:59 06:59 18:59 Intake Total 1250 / 1250 600 / 600 Output Total Balance 1250 / 1250 599 / 599 Weight 98.4 kg Intake: IV 350 / 350 Azithromycin Inj 500 MG In NS 250 / 250 Inj 250 ML @ 250 mls/hr IV.SIG Q24H ANTONIO Rx#:[id number] Rocephin Inj 1,000 MG In NS Inj 100 / 100 100 ML @ 200 mls/hr IV.SIG Q24H ANTONIO Rx#:[id number] Oral 600 / 600 600 / 600 Anesthesia Amount 300 / 300 Output: Stool Other: # Voids 2 2 Date of Last Bowel Movement 02/16/18 02/16/18 Narrative: GENERAL: This is a well-nourished, well-developed patient, in no apparent distress. Patient speaks in clear complete sentences. Patient is pleasant. HEENT: Head is atraumatic and normocephalic. Neck is supple without lymphadenopathy and trachea is midline. No JVD or carotid bruits. CARDIOVASCULAR: Atrial fibrillation controlled rate without murmurs, gallops, or rubs. RESPIRATORY: Clear to auscultation. Breath sounds equal bilaterally. No wheezes , rales, or rhonchi. Chest wall is nontender. No use of accessory muscles. GASTROINTESTINAL: Mild lower abdominal pain that is improving, nondistended. Abdomen soft. No obvious pulsatile mass or bruit. No CVA tenderness. Strong femoral pulses bilaterally. Normal bowel sounds in all quadrants. MUSCULOSKELETAL: Patient is moving upper and lower extremities freely. No calf tenderness or edema, no Homans sign. Strong pulses in upper and lower extremities. NEUROLOGICAL: Patient is alert and oriented. Cranial nerves 2-12 are grossly intact. No focal deficits and speech is clear. SKIN: No rash and turgor is normal. Assessment and Plan - Assessment (1) Atrial fibrillation with RVR Code(s): I48.91 - Unspecified atrial fibrillation Status: Acute (2) Hypertension Code(s): I10 - Essential (primary) hypertension Status: Acute (3) Community acquired pneumonia Code(s): J18.9 - Pneumonia, unspecified organism Status: Acute (4) Coronary artery disease Code(s): I25.10 - Atherosclerotic heart disease of [place] coronary artery without angina pectoris Status: Acute (5) Hyperlipidemia Code(s): E78.5 - Hyperlipidemia, unspecified Status: Acute - Plan Continue with current cardiac treatment plan. Continue Eliquis. We will schedule patient for follow-up appointment in office along with an in office stress test after discharge from the hospital. Patient cleared for discharge from cardiac standpoint. Patient will follow up with primary [facility] in [place] in approximately one month. The patient was seen and evaluated by Dr. Simons who participated in care, management and decision-making. <Aurora Simons - Last Filed: 02/18/18 16:08> Physical Exam Vital signs: Vital Signs 02/17/18 18:17 02/17/18 19:00 02/17/18 23:00 Temperature 97.8 F 98.2 F Pulse Rate 79 69 Respiratory Rate 21 19 Blood Pressure 110/73 104/68 Pulse Oximetry 94 L 95 94 L 02/18/18 05:22 02/18/18 08:00 Temperature 97.7 F 98.1 F Pulse Rate 78 80 Respiratory Rate 20 16 Blood Pressure 114/47 L 117/80 Pulse Oximetry 94 L 95 Intake & Output 02/17/18 02/18/18 02/18/18 18:59 06:59 18:59 Intake Total 1250 / 1250 600 / 600 Output Total Balance 1250 / 1250 599 / 599 Weight 216 lb 14.958 oz Intake: IV 350 / 350 Azithromycin Inj 500 MG In NS 250 / 250 Inj 250 ML @ 250 mls/hr IV.SIG Q24H ANTONIO Rx#:[id number] Rocephin Inj 1,000 MG In NS Inj 100 / 100 100 ML @ 200 mls/hr IV.SIG Q24H ANTONIO Rx#:[id number] Oral 600 / 600 600 / 600 Anesthesia Amount 300 / 300 Output: Stool Other: # Voids 2 2 Date of Last Bowel Movement 02/16/18 02/16/18 Assessment and Plan - Assessment (1) Atrial fibrillation with RVR Code(s): I48.91 - Unspecified atrial fibrillation Status: Acute (2) Hypertension Code(s): I10 - Essential (primary) hypertension Status: Acute (3) Community acquired pneumonia Code(s): J18.9 - Pneumonia, unspecified organism Status: Acute (4) Coronary artery disease Code(s): I25.10 - Atherosclerotic heart disease of [place] coronary artery without angina pectoris Status: Acute (5) Hyperlipidemia Code(s): E78.5 - Hyperlipidemia, unspecified Status: Acute - Attending Attestation Patient seen and examined. I reviewed and agree with the evaluation and plan as presented. No angina. Abdominal pain improved. Continue rate control and anticoagulation. DC home as planned.
== END 2018-02-18 11:25 | disposition home or self-care (01) ==
LOC: NEPC 12:42 → NEDA 15:50 → HCIS 17:53 → HCPC 02-11 04:21 → N07 02-13 18:20
PROVIDERS: ADMIT Hospitalist; ATTEND Hospitalist
PROC: PANENDO (2018-02-17 10:15)